=== PATIENT | male | born 1945 | race Caucasian/White ===

== ENCOUNTER 2017-11-02 11:17 | Emergency (ER) | payer MEDICARE ==
[2017-11-02 12:46] VITALS: BP 153/97
[2017-11-02] MEDS ORDERED: Albuterol 2.5 MG/3 ML NEB.SOL* (0.083%) INH ONE (13:02)
[2017-11-02] MEDS ORDERED: Albuterol/Ipratropium NEB.SOL* Albuterol 2.5 MG/Ipratropium 0.5 MG 3 ML INH ONE (13:02)
--- NOTE | 2017-11-02 13:24 | UC ---
Respiratory Complaint HPI - HPI Summary HPI Summary: Cough and congestion for a few weeks. He was treated with doxycycline and prednisone for 5 days and felt better but never perfect. He has one lung after prior pneumonectomy. he normally can walk up and down stairs with 2Lnc but now is more winded. He denies fever. Cough is mainly dry. No chest pain or cardiac ischemic equivalents. - History of Current Complaint Chief Complaint: UCRespiratory Stated Complaint: CHEST CONGESTION,SOB Time Seen by Provider: 11/02/17 13:00 Hx Obtained From: Patient Onset/Duration: Gradual Onset, Lasting Weeks Severity Initially: Moderate Severity Currently: Moderate Character: Cough: Nonproductive Aggravating Factors: Deep Breaths, Recumbent Position Alleviating Factors: Bronchodilator Associated Signs And Symptoms: Positive: Dyspnea, URI, Nasal Congestion. Negative: Fever, Chills, Pleuritic Chest Pain, Wheezing, Hemoptysis, Calf Pain, Calf Swelling, Edema - Allergies/Home Medications Allergies/Adverse Reactions: Allergies Allergy/AdvReac Type Severity Reaction Status Date / Time No Known Allergies Allergy Verified 11/02/17 12:46 Home Medications: Home Medications Albuterol 2.5MG/3ML (0.083%)* [Ventolin 2.5 MG/3 ML NEB.JOSEMANUEL*] 11/02/17 [History ] PMH/Surg Hx/FS Hx/Imm Hx Previously Healthy: Yes - Surgical History Surgical History: Yes Surgery Procedure, Year, and Place: Right Lung Removed, 2004. Tonsillectomy. cardiac stents - RCA, LAD, CIRC. aortic heart valve replacement - Family History Known Family History: Positive: Cardiac Disease, Hypertension, Diabetes - Social History Alcohol Use: None Substance Use Type: None Smoking Status (MU): Former Smoker Type: Cigarettes Amount Used/How Often: 1 PPD Length of Time of Smoking/Using Tobacco: 30 Years When Did the Patient Quit Smoking/Using Tobacco: 2004 - Immunization History Most Recent Influenza Vaccination: 2013/2014 vaccine, but can't remember date Review of Systems ENT: Sinus Congestion Respiratory: Shortness Of Breath, Cough All Other Systems Reviewed And Are Negative: Yes Physical Exam Triage Information Reviewed: Yes Appearance: Well-Appearing, No Pain Distress, Well-Nourished Vital Signs: Initial Vital Signs Temp 98.7 F 11/02/17 12:41 Pulse 118 11/02/17 12:41 Resp 20 11/02/17 12:41 BP 153/97 11/02/17 12:41 Pulse Ox 96 11/02/17 12:41 Vital Signs Reviewed: Yes Eyes: Positive: Conjunctiva Clear ENT: Positive: Nasal congestion, TMs normal, Trismus, Uvula midline. Negative: Pharyngeal erythema, TM bulging, TM dull, TM red, Tonsillar swelling, Tonsillar exudate Neck: Positive: Supple, Nontender, No Lymphadenopathy. Negative: Nuchal Rigidity Respiratory: Positive: Normal breath sounds, No respiratory distress, No accessory muscle use, Rhonchi, Wheezing - he is talking in full sentences and appears generally comfortable. he remains on 2liters and has needed to increase this.. Negative: Respiratory distress, Decreased breath sounds, Accessory muscle use, Crackles, Stridor Cardiovascular: Positive: No Murmur, Pulses Normal, Brisk Capillary Refill Abdomen Description: Positive: Nontender, No Organomegaly, Soft. Negative: Distended, Guarding Musculoskeletal Exam: Other - Neg homans clare. Musculoskeletal: Positive: Strength Intact, ROM Intact, No Edema Neurological: Positive: Alert, Muscle Tone Normal. Negative: Fatigued Psychological: Positive: Normal Response To Family, Age Appropriate Behavior Skin: Negative: rashes UC Diagnostic Evaluation - Laboratory O2 Sat by Pulse Oximetry: 96 - Radiology Xray Interpretation: No Acute Changes Radiology Interpretation Completed By: Radiologist Respiratory Course/Dx - Differential Dx/Diagnosis Provider Diagnoses: Copd exacerbation. Discharge - Discharge Plan Condition: Good Disposition: HOME Prescriptions: Azithromyxin OLIVER (NF) [Z-Oliver (Zithromax) 250 mg tabs #6] 2 tab PO .TODAY, THEN 1 DAILY #6 tab predniSONE TAB* [Deltasone TAB*] 20 mg PO DAILY #15 tab Patient Education Materials: COPD (Chronic Obstructive Pulmonary Disease) (ED) Referrals: Ilir Nye MD [Primary Care Provider] - 2 Days Additional Instructions: Return to ED for any worsening.
--- NOTE | 2017-11-02 13:38 | RAD ---
HISTORY: Cough, shortness of breath, history of pneumonectomy COMPARISONS: May 19, 2016 VIEWS: 4: Frontal dual-energy and lateral views of the chest. FINDINGS: CARDIOMEDIASTINAL SILHOUETTE: The cardiomediastinal silhouette is normal. A vascular stent is noted overlying the aortic caliber. REINALDO: The reinaldo are normal. PLEURA: The costophrenic angles are sharp. No pleural abnormalities are noted. LUNG PARENCHYMA: There is opacification of the right hemithorax consistent with history of pneumonectomy. There is hyperinflation of the left lung.. ABDOMEN: The upper abdomen is clear. There is no subphrenic gas. BONES AND SOFT TISSUES: The patient is status post median sternotomy. OTHER: None. IMPRESSION: STATUS POST RIGHT PNEUMONECTOMY. NO ACTIVE CARDIOPULMONARY DISEASE.
== END 2017-11-02 14:10 | disposition home or self-care (01) ==
LOC: UCCORT 11:17
DX: J44.1 Chronic obstructive pulmonary disease with (acute) exacerbation (principal); Z95.2 Presence of prosthetic heart valve; Z95.5 Presence of coronary angioplasty implant and graft; Z87.891 Personal history of nicotine dependence
CPT/HCPCS: 71046; 99212; A9270-GY; G0463

== ENCOUNTER 2019-10-17 09:59 | Emergency (ER) | payer MEDICARE ==
[2019-10-17] MEDS ORDERED: Ipratropium 0.5MG/2.5ML NEB* 0.5 MG/2.5 ML NEB.SOLN INH ONE ×2 (10:05→11:32)
[2019-10-17] MEDS ORDERED: Albuterol 2.5 MG/3 ML NEB.SOL* (0.083%) INH ONE ×2 (10:05→11:32)
--- NOTE | 2019-10-17 10:27 | UC ---
Respiratory Complaint HPI - HPI Summary HPI Summary: 73 yo male with one wk hx of progressively worsening dyspnea and cough hx copd on home O2 right pneumonectomy for ca CAD valvular heart disease no fever or chills - History of Current Complaint Chief Complaint: UCRespiratory Stated Complaint: TROUBLE BREATHING Time Seen by Provider: 10/17/19 10:05 Hx Obtained From: Patient Onset/Duration: Gradual Onset, Lasting Days - 7 Timing: Constant Severity Initially: Mild Severity Currently: Severe Pain Intensity: 0 Pain Scale Used: 0-10 Numeric Character: Cough: Productive Aggravating Factors: Exertion Associated Signs And Symptoms: Positive: Dyspnea - Allergies/Home Medications Allergies/Adverse Reactions: Allergies Allergy/AdvReac Type Severity Reaction Status Date / Time No Known Allergies Allergy Verified 11/02/17 12:46 Home Medications: Home Medications Albuterol HFA INHALER* [Ventolin HFA Inhaler*] 2 puff INH Q6H PRN 10/17/19 [ History Confirmed 10/17/19] Cetirizine HCl 10 mg PO DAILY 10/17/19 [History Confirmed 10/17/19] Cholecalciferol TAB* [Vitamin D TAB*] 1,000 unit PO DAILY 10/17/19 [History Confirmed 10/17/19] Cyanocobalamin (Vitamin B-12) [Vitamin B-12] 1,000 mcg SL DAILY 10/17/19 [ History Confirmed 10/17/19] Levothyroxine Sodium 112 mcg PO DAILY 10/17/19 [History Confirmed 10/17/19] PMH/Surg Hx/FS Hx/Imm Hx Previously Healthy: Yes Cardiovascular History: Cardiac Disease Respiratory History: COPD Cancer History: Lung Cancer - Surgical History Surgical History: Yes Surgery Procedure, Year, and Place: Right Lung Removed, 2004. Tonsillectomy. cardiac stents - RCA, LAD, CIRC. aortic heart valve replacement - Family History Known Family History: Positive: Cardiac Disease, Hypertension, Diabetes - Social History Alcohol Use: None Substance Use Type: None Smoking Status (MU): Former Smoker Type: Cigarettes Amount Used/How Often: 1 PPD Length of Time of Smoking/Using Tobacco: 30 Years When Did the Patient Quit Smoking/Using Tobacco: 2003 - Immunization History Most Recent Influenza Vaccination: vaccine, but can't remember date Review of Systems All Other Systems Reviewed And Are Negative: Yes Constitutional: Positive: Fatigue Skin: Positive: Negative Eyes: Positive: Negative ENT: Positive: Negative Respiratory: Positive: Shortness Of Breath, Cough Cardiovascular: Positive: Negative Gastrointestinal: Positive: Negative Genitourinary: Positive: Negative Motor: Positive: Negative Neurovascular: Positive: Negative Musculoskeletal: Positive: Negative Neurological: Positive: Negative Psychological: Positive: Negative Physical Exam - Summary Physical Exam Summary: increased WOB and hypoxic on 2 L nc Triage Information Reviewed: Yes Appearance: Ill-Appearing Vital Signs: Initial Vital Signs Temp 97.6 F 10/17/19 10:01 Pulse 122 10/17/19 10:01 Resp 34 10/17/19 10:01 BP 174/87 10/17/19 10:01 Pulse Ox 88 10/17/19 10:01 Vital Signs Reviewed: Yes Eyes: Positive: Conjunctiva Clear ENT: Positive: Hearing grossly normal, Uvula midline. Negative: Nasal congestion, Nasal drainage, Trismus, Muffled voice, Hoarse voice Dental: Negative: Abscess @ Neck: Positive: Supple Respiratory: Positive: Accessory muscle use, Wheezing - Lefrt, Other: - deminished BS on right Cardiovascular: Positive: RRR, Tachycardia Musculoskeletal: Positive: Edema @ Neurological: Positive: Alert Psychological Exam: Normal Skin Exam: Normal Diagnostics - Radiology No standard instances Radiology Interpretation Completed By: Radiologist Summary of Radiographic Findings: 1. No focal airspace opacification. 2. Unchanged small left pleural effusion versus pleural scarring 3. Status post right pneumonectomy with a large right pleural effusion. 4. Status post midline sternotomy, CABG and aVR. Re-Evaluation - Re-Evaluation First Eval Re-Evaluation Time: 11:02 Change: Improved - after first neb feels markely improved, Pox 98% on 2 L nc, P 104 Second Eval Re-Evaluation Time: 11:33 - cough worsening ..will give another neb Third Eval Re-Evaluation Time: 12:11 Change: Improved - left lung clear/feels better Respiratory Course/Dx - Differential Dx/Diagnosis Provider Diagnosis: Acute exacerbation of chronic obstructive pulmonary disease (COPD) Discharge ED - Sign-Out/Discharge Documenting (check all that apply): Patient Departure All imaging exams completed and their final reports reviewed: Yes - Discharge Plan Condition: Stable Disposition: HOME Prescriptions: DOXYcycline CAP(*) [DOXYcycline 100MG CAP(*)] 100 mg PO BID #14 cap Ipratropium 0.5MG/2.5ML NEB* [Atrovent 0.5 MG NEB.JOSEMANUEL*] 0.5 mg INH Q4H PRN #1 meb.soln MDD 4 PRN Reason: Sob/Wheezing predniSONE TAB* [Deltasone 20 MG TAB*] 20 - 40 mg PO DAILY #13 tab Patient Education Materials: Acute Bronchitis (ED) Referrals: Ilir Nye MD [Primary Care Provider] - As Soon As Possible Additional Instructions: You need to go to the ER as soon as possible for worsening symptoms If you worsen despite the medications we prescribe it is likely you will need admission - Billing Disposition and Condition Condition: STABLE Disposition: Home
[2019-10-17 12:24] VITALS: BP 133/77
== END 2019-10-17 12:31 | disposition home or self-care (01) ==
LOC: UCCORT 09:59
DX: J44.1 Chronic obstructive pulmonary disease with (acute) exacerbation (principal); I25.10 Atherosclerotic heart disease of native coronary artery without angina pectoris; Z99.81 Dependence on supplemental oxygen; Z85.118 Personal history of other malignant neoplasm of bronchus and lung; Z79.899 Other long term (current) drug therapy; Z87.891 Personal history of nicotine dependence
CPT/HCPCS: 71046; 99213; G0463; J7512

== ENCOUNTER 2019-12-26 10:10 | Inpatient (IN) | payer MEDICARE ==
[2019-12-26] MEDS ORDERED: Furosemide IV* 10 MG/ML VIAL (40 MG) IV SLOW PU ONE (10:24)
[2019-12-26 10:27] LABS: Hematocrit 36 % (42-52); Hemoglobin 11.9 g/dL (14.0-18.0); Mean Corpuscular HGB Conc 33 g/dL (31-36); Mean Corpuscular Hemoglobin 30 pg (27-31); Mean Corpuscular Volume 90 fL (80-94); Mean Platelet Volume 8.8 fL (7.4-10.4); Platelet Count 273 10^3/uL (150-450); Red Blood Count 3.99 10^6 /uL (4.18-5.48); Red Cell Distribution Width 16 % (10-15); White Blood Count 29.3 10^3/uL (3.5-10.8)
[2019-12-26 10:39] LABS: INR 1.11 (0.82-1.09)
[2019-12-26] MEDS ORDERED: Albuterol/Ipratropium NEB.SOL* Albuterol 2.5 MG/Ipratropium 0.5 MG 3 ML ONE (10:44)
[2019-12-26 10:52] LABS: Troponin I 0.03 ng/mL (<0.03)
[2019-12-26 10:56] LABS: Anion Gap 5 mmol/L (2-11); CO2 Carbon Dioxide 37 mmol/L (22-32); Calcium 9.1 mg/dL (8.6-10.3); Chloride 91 mmol/L (101-111); Potassium 4.3 mmol/L (3.5-5.0); Sodium 133 mmol/L (135-145)
[2019-12-26] MEDS ORDERED: Albuterol/Ipratropium NEB.SOL* Albuterol 2.5 MG/Ipratropium 0.5 MG 3 ML INH SCH (11:00)
[2019-12-26 11:02] LABS: ALT 14 U/L (7-52); AST 20 U/L (13-39); Albumin/Globulin Ratio 1.3 (1-3); Alkaline Phosphatase 127 U/L (34-104); BUN/Creatinine Ratio 10.2 (8-20); Blood Urea Nitrogen 9 mg/dL (6-24); EGFR African American 102.7 (>60); EGFR Non-African American 84.9 (>60); Globulin 3.1 g/dL (2-4); Glucose 150 mg/dL (70-100); Total Protein 7.1 g/dL (6.4-8.9)
[2019-12-26 11:04] LABS: Influenza A Molecular Negative (Negative); Influenza B Molecular Negative (Negative)
[2019-12-26 11:06] LABS: ABS Basophils 0.3 10^3/ul (0-0.2); ABS Lymphocytes 0.2 10^3/ul (1.0-4.8); ABS Monocytes 1.3 10^3/ul (0-0.8); ABS Neutrophils 27.5 10^3/ul (1.5-7.7); Lymphocyte % 0.8 %
--- NOTE | 2019-12-26 11:33 | HP ---
H&P (Free Text) History and Physical: DATE OF ADMISSION: 12/26/19 REASON FOR ADMISSION: Acute on chronic hypercapneic and hypoxic respiratory failure CC: Shortness of breath HPI: Esdras Navarrete is a 74 year-old man with a history of lung cancer s/p right pneumonectomy, s/p valve replacement, COPD, CAD, and recent hospitalization with cardiac arrest who is a direct admit from [facility] in [place] for worsening shortness of breath. He reports worsening shortness of breath over the past 1 week. He denies cough, fever or other URI symptoms. He requires 2L O2 at baseline but has been using 4-5L during the past couple of days. EMS was called for dyspnea yesterday, and his oxygen concentrator was found not to be working. The patient initially refused to go to the ED after the oxygen tank was fixed but did end up going due to the shortness of breath. In the [place] ED, he was started on BIPAP and given Zosyn, methylprednisolone 125 mg, Duoneb , and lasix 20 mg. BNP was >1100 and WBC was about 16. He was transferred to [facility] due to patient request. On arrival to the ICU, he has no other complaints besides the shortness of breath which he feels is slightly better. FiO2 is at 100%. About 6 weeks ago, the patient presented to [facility] in [place] with worsening dyspnea similar to this current episode. He was in [place] for about 2 days before being transferred to [facility] in [place] per patient/family request. He developed sudden respiratory failure and cardiac arrest with ROSC that was suspected to be a result of an aspiration event. He was at [facility] for about 2 weeks and was discharged home about 3 weeks ago. He reports he has been doing well since discharge. He noticed leg swelling during his hospitalization which is still unchanged. He denies chest pain, abdominal pain, or nausea. He has had constipation since discharge which is improving. He lost about 40 lbs a couple of months ago due to a medication "to clear out the airways." His weight has been stable since he stopped the medication prior to his previous hospitalization. He follows a pureed diet. PMH: COPD, h/o cardiac arrest, CAD, h/o lung cancer, hypothyroidism PSH: Right pneumonectomy 2004, cardiac stent placement (RCA, LAD, Circ), CABG, bovine aortic valve replacement, cataract removal HOME MEDICATIONS: Formoterol fumarate 2 puff BID inh Atorvastatin 40 mg qday po Spiriva 18 mcg q day inh Cetirizine 10 mg q day po Albuterol 2 mg QID prn neb Metoprolol succinate 25 mg q day po Levothyroxine 112 mcg q day po Vitamin B12 1000 mcg q day po Cholecalciferol 1 tab q day po Allergies lactose Allergy (Verified 12/26/19 10:14) Unknown Reaction Details FH: Father from throat cancer. Mother from [place]. No history of bleeding disorders. SH: Patient lives with his . He quit smoking in 2004. He denies alcohol or drug use. ROS: 10-point review of systems was obtained. Pertinent positive and negatives are listed in the HPI. PHYSICAL EXAM: Temp Pulse Resp BP Pulse Ox 99.4 F 114 28 91/64 100 12/26/19 10:18 12/26/19 11:00 12/26/19 11:00 12/26/19 11:00 12/26/19 11:00 General: No acute distress but increased work of breathing. Cachectic-appearing man who appears stated age. Head: Normocephalic and atraumatic. Eyes: Pupils equal and no scleral icterus. Neck: Supple, trachea midline. CV: Tachycardic, regular rhythm. Well healed sternal incision. Resp: Clear breath sounds on left, mild expiratory wheezes. Absent breath sounds on right. Accessory muscle use with bipap. Abdomen: Soft, nontender, nondistended. Extremities: 3+ pedal edema distal BLE. Warm. Skin: Warm and dry. Intact. Neuro: Awake. Alert and oriented x3. Moves all extremities equally. Psych: Affect normal. Laboratory Results - last 24 hr 12/26/19 12/26/19 12/26/19 10:20 10:20 10:20 WBC 29.3 H RBC 3.99 L Hgb 11.9 L Hct 36 L MCV 90 MCH 30 MCHC 33 RDW 16 H Plt Count 273 MPV 8.8 Neut % (Auto) 93.9 Lymph % (Auto) 0.8 Andrews % (Auto) 4.4 Eos % (Auto) 0.0 Baso % (Auto) 0.9 Absolute Neuts (auto) 27.5 H Absolute Lymphs (auto) 0.2 L Absolute Monos (auto) 1.3 H Absolute Eos (auto) 0.0 Absolute Basos (auto) 0.3 H Absolute Nucleated RBC 0.0 Nucleated RBC % 0.0 INR (Anticoag Therapy) 1.11 H Patient Temperature ABG pH ABG pH (Temp Correct) ABG pCO2 ABG pCO2 (Temp Corrct ABG pO2 ABG pO2 (Temp Correct ABG HCO3 ABG O2 Saturation ABG Base Excess Respiration Rate O2 Delivery Device Ventilator Type Vent Mode FiO2 Inspiratory Time PEEP Pressure Support Pressure Control EPAP IPAP BiPAP Sodium 133 L Potassium 4.3 Chloride 91 L Carbon Dioxide 37 H Anion Gap 5 BUN 9 Creatinine 0.88 Est GFR ( Amer) 102.7 Est GFR (Non-Af Amer) 84.9 BUN/Creatinine Ratio 10.2 Glucose 150 H Lactic Acid Calcium 9.1 Total Bilirubin 2.30 H AST 20 ALT 14 Alkaline Phosphatase 127 H Troponin I 0.03 H* Total Protein 7.1 Albumin 4.0 Globulin 3.1 Albumin/Globulin Ratio 1.3 Influenza A (Rapid) Influenza B (Rapid) 12/26/19 12/26/19 12/26/19 10:20 10:37 10:38 WBC RBC Hgb Hct MCV MCH MCHC RDW Plt Count MPV Neut % (Auto) Lymph % (Auto) Andrews % (Auto) Eos % (Auto) Baso % (Auto) Absolute Neuts (auto) Absolute Lymphs (auto) Absolute Monos (auto) Absolute Eos (auto) Absolute Basos (auto) Absolute Nucleated RBC Nucleated RBC % INR (Anticoag Therapy) Patient Temperature Not Reportable ABG pH 7.32 L ABG pH (Temp Correct) Not Reportable ABG pCO2 69 H ABG pCO2 (Temp Corrct Not Reportable ABG pO2 156 H ABG pO2 (Temp Correct Not Reportable ABG HCO3 30.4 ABG O2 Saturation 99.9 H ABG Base Excess 7.0 H Respiration Rate Not Reportable O2 Delivery Device bipap Ventilator Type Not Reportable Vent Mode Not Reportable FiO2 100 Inspiratory Time Not Reportable PEEP Not Reportable Pressure Support Not Reportable Pressure Control Not Reportable EPAP 8 IPAP 16 BiPAP Not Reportable Sodium Potassium Chloride Carbon Dioxide Anion Gap BUN Creatinine Est GFR ( Amer) Est GFR (Non-Af Amer) BUN/Creatinine Ratio Glucose Lactic Acid 1.7 Calcium Total Bilirubin AST ALT Alkaline Phosphatase Troponin I Total Protein Albumin Globulin Albumin/Globulin Ratio Influenza A (Rapid) Negative Influenza B (Rapid) Negative CXR- Small pleural effusion on L, mild opacification of LLL (consolidation vs atelectasis) IMPRESSION: 74M with acute on chronic respiratory failure due to COPD exacerbation vs pneumonia. Acute on chronic hypercarbic respiratory failure. Acute on chronic hypoxic respiratory failure. Leukocytosis CAD Hypothyroidism PLAN: Neuro: Tylenol prn for pain. Delirium precautions. CV: Goal MAP >65 TTE ordered Lasix 60 mg (evidence of hypervolemia on physical exam) Continue home metoprolol and statin. Resp: Continue Bipap, wean as tolerated. Titrate FiO2 to keep O2 sat >88% Continue home formoterol, Spiriva. Duoneb prn. GI: NPO while on Bipap. Plan for regular/pureed diet if able to wean off bipap. GI ppx not indicated Bowel regimen: Miralax, senna. Suppository prn Renal: Strict I&Os. If unable to measure accurate urine output, will place Jones. ID: Leukocytosis likely due in part to steroids but WBC was 16 at [place]. Will treat empirically for community-acquired pneumonia with azithromycin and ceftriaxone. Influenza negative. Strep pneumo and Legionella pending. Heme: Daily CBC DVT ppx: SQH. Endo: Check fingersticks q6h while he is on steroids. Will order insulin sliding scale if BG >180 Continue home levothyroxine MSK: Activity with assistance. Wound: None Status: Critical Dispo: ICU for respiratory failure Code status: Full code Critical care time: 60 min
[2019-12-26] MEDS: cefTRIAXone(*) 1 GM in NS 0.9% 50 ML* 50 ML IVPB SCH (11:49)
[2019-12-26 11:56] LABS: Urine Appearance Clear; Urine Bilirubin Negative (Negative); Urine Blood Negative (Negative); Urine Color Yellow; Urine Glucose Negative (Negative); Urine Ketones Negative (Negative); Urine Nitrite Negative (Negative); Urine Protein Negative (Negative); Urine Specific Gravity 1.009 (1.010-1.030); Urine Urobilinogen Negative (Negative)
[2019-12-26] MEDS ORDERED: Azithromycin 500 mg/250 ml NS 500 MG/250 ML BAG IVPB SCH (12:00)
[2019-12-26] MEDS: Azithromycin 500 mg/250 ml NS 500 MG/250 ML BAG IVPB SCH (12:38)
[2019-12-26] MEDS ORDERED: SPIRIVA Respimat* (tiotropium) 2.5 mcg/inh Inhaler INH SCH (13:00)
--- NOTE | 2019-12-26 13:03 | ECHO ---
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 History: Cardiac arrest, Lung cancer, right lobectomy. Risk factors: Former tobacco use. Hypertension. Dyslipidemia. Labs, prior tests, procedures, and surgery: Catheterization. There was a stenosis which was treated with a stent. Coronary artery bypass grafting. Aortic valve replacement with a bioprosthetic valve. Conclusions Summary: - Procedure narrative: The study was technically limited due to poor acoustic window availability, heart shifted to the right. - Left ventricle: The cavity size is moderately reduced. Wall thickness is normal. Systolic function is vigorous. The estimated ejection fraction is 70-75%. - Right ventricle: Systolic function is low normal. - Tricuspid valve: There is trace to mild regurgitation. - Pulmonary arteries: Systolic pressure is within the normal range. The peak pressure during systole by Doppler is 30.0 mm Hg. - No prior echocardiogram available to compare. Study data: Transthoracic echocardiogram. Procedure: Transthoracic echocardiography was performed. Image quality was suboptimal. The study was technically limited due to poor acoustic window availability, heart shifted to the right. All views acquired from patient's right side. Patient on Bipap. Complete 2D, spectral Doppler, and color flow Doppler. Location: ICU Patient status: Inpatient. Patient room number: 4. Rhythm: Tachycardia. Findings Left ventricle: The cavity size is moderately reduced. Wall thickness is normal. Systolic function is vigorous. The estimated ejection fraction is 70-75%. Wall motion is normal; there are no regional wall motion abnormalities. Left ventricular diastolic function parameters are indeterminate. Right ventricle: The cavity size is normal. Systolic function is low normal. Left atrium: The atrium is normal in size. Right atrium: Not well visualized. Mitral valve: Not well visualized. The Mitral valve annulus appears thickened. There is no significant regurgitation. Aortic valve: Not well visualized. There is a bioprosthetic valve. There is no significant regurgitation. Tricuspid valve: The leaflets are normal thickness. There is no evidence of stenosis. There is trace to mild regurgitation. Pulmonic valve: Not well visualized. There is no significant regurgitation. Aorta: Aortic root: The aortic root is poorly visualized. Aortic arch: The aortic arch is not well visualized and does not appear dilated. Pericardium: There is no significant pericardial effusion. Pulmonary arteries: Systolic pressure is within the normal range. Systemic veins: Inferior vena cava: The vessel is normal in size. There is (< 50%) respiratory change in the IVC dimension. Measurements Left ventricle Value Ref Mitral valve Value Ref ANJALI, LAX (L) 2.7 cm 4.2 - 5.8 Peak E 0.73 m/sec ----- ESD, LAX (L) 1.8 cm 2.5 - 4.0 Peak A 0.55 m/sec ----- FS, LAX 34 % 25 - 43 Decel time 65 ms ----- PW, ED, LAX 0.9 cm 0.6 - 1.0 Mean grad, D 2.0 mm Hg ----- Peak grad, D 4.0 mm Hg ----- LVOT Value Ref Peak E/A ratio 1.3 ----- Diam, S 2.10 cm Area 3.5 cm^2 Pulmonic valve Value Ref Peak v, S 0.92 m/sec ----- Ventricular septum Value Ref Peak grad, S 3.0 mm Hg ----- IVS, ED 0.9 cm 0.6 - 1.0 Tricuspid valve Value Ref Right ventricle Value Ref TR peak v 2.61 m/sec <=2.8 ANJALI, LAX 2.7 cm Peak RV-RA grad, S 27 mm Hg ----- Pressure, S 33 mm Hg Aortic arch Value Ref Left atrium Value Ref Arch diam 3.1 cm ----- AP dim, ES 3.40 cm 3.00 - 4.00 Decending aorta Value Ref Right atrium Value Ref Tg peak katlyn 0.46 m/sec ----- Estimated RAP 8 mm Hg Pulmonary artery Value Ref Aortic valve Value Ref Pressure, S 30.0 mm Hg ----- Petra diam, ED 2.0 cm Peak v, S 1.31 m/sec Inferior vena cava Value Ref VTI, S 15.3 cm Diam 1.7 cm ----- Mean grad, S 3.0 mm Hg Peak grad, S 7.0 mm Hg Legend: (L) and (H) haider values outside specified reference range. Prepared and electronically signed by Sania Cristobal MD 12/26/2019 13:02
[2019-12-26] MEDS: methylPREDNISolone 125 MG* 2 ML VIAL IV SCH ×2 (13:19→19:28)
[2019-12-26] MEDS: Heparin VIAL(*) 5000 UNITS/ML VIAL (FIVE THOUSAND) SUBCUT SCH ×2 (13:19→21:00)
[2019-12-26] MEDS: Albuterol/Ipratropium NEB.SOL* Albuterol 2.5 MG/Ipratropium 0.5 MG 3 ML INH SCH ×2 (13:40→19:49)
[2019-12-26 13:57] LABS: Magnesium 1.6 mg/dL (1.9-2.7); Phosphorus 4.5 mg/dL (2.5-5.0)
[2019-12-26] MEDS ORDERED: Magnesium Sulfate 2 GM IV* 2 GM/50 ML BAG IVPB ONE (16:30)
[2019-12-26] MEDS ORDERED: D5LR 1000 ML BAG* 1,000 ML IV SCH (17:00)
[2019-12-26] MEDS: Senna TAB 8.6 mg* TAB PO SCH (19:37)
--- NOTE | 2019-12-26 23:14 | PN ---
Hospitalist Progress Note Date of Service: 12/26/19 HOSPITALIST ADDENDUM Called by RN because patient was noted to have mild ST elevations on telemetry. EKG shows mild ST elevation on lateral leads. Will continue to trend troponins. He's asymptomatic at this time, sleeping comfortably on Vapotherm. Continue to monitor in ICU.
[2019-12-26 23:49] LABS: Troponin I 0.02 ng/mL (<0.03)
[2019-12-27] MEDS: Albuterol/Ipratropium NEB.SOL* Albuterol 2.5 MG/Ipratropium 0.5 MG 3 ML INH SCH ×4 (02:10→19:11)
[2019-12-27] MEDS: methylPREDNISolone 125 MG* 2 ML VIAL IV SCH ×3 (04:10→21:15)
[2019-12-27] MEDS ORDERED: Albuterol/Ipratropium NEB.SOL* Albuterol 2.5 MG/Ipratropium 0.5 MG 3 ML INH PRN (04:24)
[2019-12-27] MEDS ORDERED: Furosemide IV* 10 MG/ML VIAL (40 MG) IV SLOW PU ONE (04:24)
--- NOTE | 2019-12-27 04:32 | PN ---
Hospitalist Progress Note Date of Service: 12/27/19 HOSPITALIST ADDENDUM Called by RN because patient is in respiratory distress. Immediately evaluated at bedside with severe dyspnea and increased work of breathing. CVS: normal S1 and S2, RRR, tachycardic Chest: BS+ bilaterally with diffuse rhonchi and crackles. A/P: Flash pulmonary edema - Portable CxR - D/c IVF - Furosemide 40mg IV - Bronchodilators - Continue Vapotherm.
[2019-12-27 05:03] LABS: Hematocrit 32 % (42-52); Hemoglobin 10.5 g/dL (14.0-18.0); Mean Corpuscular HGB Conc 33 g/dL (31-36); Mean Corpuscular Hemoglobin 29 pg (27-31); Mean Corpuscular Volume 90 fL (80-94); Mean Platelet Volume 8.9 fL (7.4-10.4); Platelet Count 234 10^3/uL (150-450); Red Blood Count 3.59 10^6 /uL (4.18-5.48); Red Cell Distribution Width 16 % (10-15); White Blood Count 28.8 10^3/uL (3.5-10.8)
[2019-12-27 05:05] LABS: ABS Lymphocytes 0.3 10^3/ul (1.0-4.8); ABS Monocytes 0.8 10^3/ul (0-0.8); ABS Neutrophils 27.7 10^3/ul (1.5-7.7); Lymphocyte % 1.1 %
[2019-12-27 05:15] LABS: Albumin 3.6 g/dL (3.2-5.2); Anion Gap 8 mmol/L (2-11); CO2 Carbon Dioxide 33 mmol/L (22-32); Calcium 8.9 mg/dL (8.6-10.3); Chloride 93 mmol/L (101-111); Indirect Bilirubin 1.1 mg/dL (0.3-1.0); Potassium 4.3 mmol/L (3.5-5.0); Sodium 134 mmol/L (135-145)
[2019-12-27 05:21] LABS: ALT 13 U/L (7-52); AST 19 U/L (13-39); Albumin/Globulin Ratio 1.3 (1-3); Alkaline Phosphatase 105 U/L (34-104); BUN/Creatinine Ratio 19.5 (8-20); Blood Urea Nitrogen 16 mg/dL (6-24); EGFR African American 111.4 (>60); EGFR Non-African American 92.1 (>60); Globulin 2.8 g/dL (2-4); Glucose 137 mg/dL (70-100); Total Protein 6.4 g/dL (6.4-8.9)
[2019-12-27 05:36] LABS: Troponin I 0.04 ng/mL (<0.03)
[2019-12-27] MEDS: Heparin VIAL(*) 5000 UNITS/ML VIAL (FIVE THOUSAND) SUBCUT SCH ×3 (05:56→21:15)
[2019-12-27] MEDS ORDERED: Azithromycin 500 mg/250 ml NS 500 MG/250 ML BAG IVPB SCH (07:00)
[2019-12-27] MEDS ORDERED: [UNRECOGNIZED DRUG - OTHER] INH SCH (09:00)
[2019-12-27] MEDS ORDERED: Metoprolol Succinate XL TAB* 50 MG PO SCH (09:00)
--- NOTE | 2019-12-27 09:02 | PN ---
Date of Service: 12/27/19 Critical Care Services: Found to have ST elevation on telemetry and EKG showed borderline elevation. Troponin peaked at 0.04. He also had an episode of severe dyspnea, likely etiology flash pulmonary edema. He received Lasix 40 and IVF turned off. This morning he feels his breathing has improved but is not back to baseline yet. He is on vapother FiO2 74%, 20 LPM. He denies chest pain or abdominal pain. He denies nausea, and he feels hungry. Afebrile. HR has been 90s-110s and SBP 90s- 100s. Vital Signs: Temp Pulse Resp BP SpO2 FiO2 98.1 F 115 23 100/56 99 75 12/27/19 07:20 12/27/19 08:00 12/27/19 08:00 12/27/19 08:00 12/27/19 08:00 12/27 08:00 Physical Exam: Gen: NAD. HEENT: Normocephalic, atraumatic. Pupils equal and no scleral icterus. Moist mucous membranes. Trachea midline, neck supple. Lungs: Coarse breath sounds on left, no accessory muscle use but cannot complete full sentences without pausing. Absent breath sounds on right. Cardiac: Tachycardic, regular rhythm. Abdomen: soft, nontender, nondistended. Extremities: Warm. Edematous mostly in feet, R > L Neuro: Alert and oriented x3. Moves all extremities equally. Fluid Balance (Past 24 Hours): I= O= Net Intake & Output 12/25/19 12/26/19 12/27/19 12/28/19 06:59 06:59 06:59 06:59 Intake Total 901 Output Total 1375 225 Balance -474 -225 Weight 141 lb 1.533 oz Intake: IV Fluids 846 D5LR 523 NS (0.9%) 323 IVPB 55 mg sulfate 55 Oral 0 Output: Urine 1375 225 Labs: Laboratory Results - last 24 hr 12/26/19 12/26/19 12/26/19 10:20 10:20 10:20 WBC 29.3 H RBC 3.99 L Hgb 11.9 L Hct 36 L MCV 90 MCH 30 MCHC 33 RDW 16 H Plt Count 273 MPV 8.8 Neut % (Auto) 93.9 Lymph % (Auto) 0.8 [place] % (Auto) 4.4 Eos % (Auto) 0.0 Baso % (Auto) 0.9 Absolute Neuts (auto) 27.5 H Absolute Lymphs (auto) 0.2 L Absolute Monos (auto) 1.3 H Absolute Eos (auto) 0.0 Absolute Basos (auto) 0.3 H Absolute Nucleated RBC 0.0 Nucleated RBC % 0.0 INR (Anticoag Therapy) 1.11 H Patient Temperature ABG pH ABG pH (Temp Correct) ABG pCO2 ABG pCO2 (Temp Corrct ABG pO2 ABG pO2 (Temp Correct ABG HCO3 ABG O2 Saturation ABG Base Excess Respiration Rate O2 Delivery Device Ventilator Type Vent Mode FiO2 Inspiratory Time PEEP Pressure Support Pressure Control EPAP IPAP BiPAP Sodium 133 L Potassium 4.3 Chloride 91 L Carbon Dioxide 37 H Anion Gap 5 BUN 9 Creatinine 0.88 Est GFR ( Amer) 102.7 Est GFR (Non-Af Amer) 84.9 BUN/Creatinine Ratio 10.2 Glucose 150 H Lactic Acid Calcium 9.1 Phosphorus 4.5 Magnesium 1.6 L Total Bilirubin 2.30 H Direct Bilirubin Indirect Bilirubin AST 20 ALT 14 Alkaline Phosphatase 127 H Troponin I 0.03 H* B-Natriuretic Peptide Total Protein 7.1 Albumin 4.0 Globulin 3.1 Albumin/Globulin Ratio 1.3 Urine Color Urine Appearance Urine pH Ur Specific [place] Urine Protein Urine Ketones Urine Blood Urine Nitrate Urine Bilirubin Urine Urobilinogen Ur Leukocyte Esterase Urine Glucose Influenza A (Rapid) Influenza B (Rapid) 12/26/19 12/26/19 12/26/19 10:20 10:37 10:38 WBC RBC Hgb Hct MCV MCH MCHC RDW Plt Count MPV Neut % (Auto) Lymph % (Auto) [place] % (Auto) Eos % (Auto) Baso % (Auto) Absolute Neuts (auto) Absolute Lymphs (auto) Absolute Monos (auto) Absolute Eos (auto) Absolute Basos (auto) Absolute Nucleated RBC Nucleated RBC % INR (Anticoag Therapy) Patient Temperature Not Reportable ABG pH 7.32 L ABG pH (Temp Correct) Not Reportable ABG pCO2 69 H ABG pCO2 (Temp Corrct Not Reportable ABG pO2 156 H ABG pO2 (Temp Correct Not Reportable ABG HCO3 30.4 ABG O2 Saturation 99.9 H ABG Base Excess 7.0 H Respiration Rate Not Reportable O2 Delivery Device bipap Ventilator Type Not Reportable Vent Mode Not Reportable FiO2 100 Inspiratory Time Not Reportable PEEP Not Reportable Pressure Support Not Reportable Pressure Control Not Reportable EPAP 8 IPAP 16 BiPAP Not Reportable Sodium Potassium Chloride Carbon Dioxide Anion Gap BUN Creatinine Est GFR ( Amer) Est GFR (Non-Af Amer) BUN/Creatinine Ratio Glucose Lactic Acid 1.7 Calcium Phosphorus Magnesium Total Bilirubin Direct Bilirubin Indirect Bilirubin AST ALT Alkaline Phosphatase Troponin I B-Natriuretic Peptide Total Protein Albumin Globulin Albumin/Globulin Ratio Urine Color Urine Appearance Urine pH Ur Specific [place] Urine Protein Urine Ketones Urine Blood Urine Nitrate Urine Bilirubin Urine Urobilinogen Ur Leukocyte Esterase Urine Glucose Influenza A (Rapid) Negative Influenza B (Rapid) Negative 12/26/19 12/26/19 12/27/19 10:55 23:20 04:37 WBC RBC Hgb Hct MCV MCH MCHC RDW Plt Count MPV Neut % (Auto) Lymph % (Auto) [place] % (Auto) Eos % (Auto) Baso % (Auto) Absolute Neuts (auto) Absolute Lymphs (auto) Absolute Monos (auto) Absolute Eos (auto) Absolute Basos (auto) Absolute Nucleated RBC Nucleated RBC % INR (Anticoag Therapy) Patient Temperature ABG pH ABG pH (Temp Correct) ABG pCO2 ABG pCO2 (Temp Corrct ABG pO2 ABG pO2 (Temp Correct ABG HCO3 ABG O2 Saturation ABG Base Excess Respiration Rate O2 Delivery Device Ventilator Type Vent Mode FiO2 Inspiratory Time PEEP Pressure Support Pressure Control EPAP IPAP BiPAP Sodium 134 L Potassium 4.3 Chloride 93 L Carbon Dioxide 33 H Anion Gap 8 BUN 16 Creatinine 0.82 Est GFR ( Amer) 111.4 Est GFR (Non-Af Amer) 92.1 BUN/Creatinine Ratio 19.5 Glucose 137 H Lactic Acid Calcium 8.9 Phosphorus Magnesium 2.0 2.0 Total Bilirubin 1.30 H Direct Bilirubin 0.20 H Indirect Bilirubin 1.1 H AST 19 ALT 13 Alkaline Phosphatase 105 H Troponin I 0.02 0.04 H* B-Natriuretic Peptide Total Protein 6.4 Albumin 3.6 Globulin 2.8 Albumin/Globulin Ratio 1.3 Urine Color Yellow Urine Appearance Clear Urine pH 6.0 Ur Specific [place] 1.009 L Urine Protein Negative Urine Ketones Negative Urine Blood Negative Urine Nitrate Negative Urine Bilirubin Negative Urine Urobilinogen Negative Ur Leukocyte Esterase Negative Urine Glucose Negative Influenza A (Rapid) Influenza B (Rapid) 12/27/19 12/27/19 04:37 04:37 WBC 28.8 H RBC 3.59 L Hgb 10.5 L Hct 32 L MCV 90 MCH 29 MCHC 33 RDW 16 H Plt Count 234 MPV 8.9 Neut % (Auto) 96.0 Lymph % (Auto) 1.1 [place] % (Auto) 2.7 Eos % (Auto) 0.0 Baso % (Auto) 0.2 Absolute Neuts (auto) 27.7 H Absolute Lymphs (auto) 0.3 L Absolute Monos (auto) 0.8 Absolute Eos (auto) 0.0 Absolute Basos (auto) 0.0 Absolute Nucleated RBC 0.0 Nucleated RBC % 0.0 INR (Anticoag Therapy) Patient Temperature ABG pH ABG pH (Temp Correct) ABG pCO2 ABG pCO2 (Temp Corrct ABG pO2 ABG pO2 (Temp Correct ABG HCO3 ABG O2 Saturation ABG Base Excess Respiration Rate O2 Delivery Device Ventilator Type Vent Mode FiO2 Inspiratory Time PEEP Pressure Support Pressure Control EPAP IPAP BiPAP Sodium Potassium Chloride Carbon Dioxide Anion Gap BUN Creatinine Est GFR ( Amer) Est GFR (Non-Af Amer) BUN/Creatinine Ratio Glucose Lactic Acid Calcium Phosphorus Magnesium Total Bilirubin Direct Bilirubin Indirect Bilirubin AST ALT Alkaline Phosphatase Troponin I B-Natriuretic Peptide 273 H Total Protein Albumin Globulin Albumin/Globulin Ratio Urine Color Urine Appearance Urine pH Ur Specific [place] Urine Protein Urine Ketones Urine Blood Urine Nitrate Urine Bilirubin Urine Urobilinogen Ur Leukocyte Esterase Urine Glucose Influenza A (Rapid) Influenza B (Rapid) Studies: Echo 12/26: LVEF 70-75% CXR- Worsening opacification of LLL, small L pleural effusion. Nutrition: NPO. Swallow to re-evaluate and likely start pureed with honey thick liquids. Impression: 74M with acute on chronic respiratory failure due to COPD exacerbation vs pneumonia. Acute on chronic hypercarbic respiratory failure. Acute on chronic hypoxic respiratory failure. Leukocytosis CAD Hypothyroidism Dysphagia Plan: Neuro: Tylenol prn for pain. Delirium precautions. CV: Goal MAP >65 Continue home metoprolol and statin. Resp: Continue Vapotherm, wean as tolerated. Anticipate that he will continue on Vapotherm today. Titrate FiO2 to keep O2 sat >88% Continue home Dulera, Spiriva. Duoneb prn. GI: Start diet once cleared by speech therapy. GI ppx not indicated Bowel regimen: Miralax, senna. Suppository prn Renal: Strict I&Os. Appears mostly euvolemic. Will hold off on redosing Lasix since BP on low end of normal. ID: Leukocytosis stable, may be result of steroids. Afebrile. Will treat empirically for community-acquired pneumonia with azithromycin and ceftriaxone, day 2. Influenza negative. Strep pneumo and Legionella neg. Heme: Daily CBC DVT ppx: SQH. Endo: Check fingersticks q6h while he is on steroids. Will order insulin sliding scale if BG >180 Continue home levothyroxine MSK: Activity with assistance. Wound: None Status: Critical Dispo: ICU for respiratory failure Code status: Full code Critical care time: 40 min
[2019-12-27] MEDS ORDERED: Metoprolol Tartrate TAB* 25 MG PO SCH (10:00)
[2019-12-27] MEDS: SPIRIVA Respimat* (tiotropium) 2.5 mcg/inh Inhaler INH SCH (10:40)
[2019-12-27] MEDS ORDERED: Mometasone/Formoter 200/5 MDI INH SCH (11:00)
[2019-12-27] MEDS: cefTRIAXone(*) 1 GM in NS 0.9% 50 ML* 50 ML IVPB SCH (11:25)
[2019-12-27] MEDS: Metoprolol Tartrate IV* 1 MG/ML 5 ML VIAL IV PRN (11:26)
[2019-12-27] MEDS: Levothyroxine TAB* 112 MCG TAB PO SCH (11:27)
[2019-12-27] MEDS: Polyethylene Glycol 3350* 17 GM PACKET PO SCH (11:27)
[2019-12-27] MEDS: Cetirizine* 10 MG TAB PO SCH (11:27)
[2019-12-27] MEDS: Azithromycin 500 mg/250 ml NS 500 MG/250 ML BAG IVPB SCH (13:00)
[2019-12-27] MEDS: Atorvastatin* 40 MG TAB PO SCH (18:24)
[2019-12-27] MEDS: Mometasone/Formoter 200/5 MDI INH SCH (19:10)
[2019-12-27] MEDS: Senna TAB 8.6 mg* TAB PO SCH (21:15)
[2019-12-27] MEDS: Metoprolol Tartrate TAB* 25 MG PO SCH (21:16)
[2019-12-28] MEDS: Albuterol/Ipratropium NEB.SOL* Albuterol 2.5 MG/Ipratropium 0.5 MG 3 ML INH SCH ×4 (02:04→19:33)
[2019-12-28] MEDS: methylPREDNISolone 125 MG* 2 ML VIAL IV SCH ×3 (04:07→20:06)
[2019-12-28 04:22] LABS: Hematocrit 27 % (42-52); Hemoglobin 9.2 g/dL (14.0-18.0); Mean Corpuscular HGB Conc 34 g/dL (31-36); Mean Corpuscular Hemoglobin 30 pg (27-31); Mean Corpuscular Volume 89 fL (80-94); Mean Platelet Volume 9.2 fL (7.4-10.4); Platelet Count 184 10^3/uL (150-450); Red Blood Count 3.05 10^6 /uL (4.18-5.48); Red Cell Distribution Width 16 % (10-15); White Blood Count 21.5 10^3/uL (3.5-10.8)
[2019-12-28 04:24] LABS: ABS Lymphocytes 0.2 10^3/ul (1.0-4.8); ABS Monocytes 0.8 10^3/ul (0-0.8); ABS Neutrophils 20.5 10^3/ul (1.5-7.7); Lymphocyte % 0.9 %
[2019-12-28 04:36] LABS: BUN/Creatinine Ratio 32.1 (8-20); Calcium 8.7 mg/dL (8.6-10.3); EGFR Non-African American 93.4 (>60); Potassium 3.8 mmol/L (3.5-5.0)
[2019-12-28] MEDS: Heparin VIAL(*) 5000 UNITS/ML VIAL (FIVE THOUSAND) SUBCUT SCH ×3 (05:42→21:19)
[2019-12-28] MEDS: Levothyroxine TAB* 112 MCG TAB PO SCH (05:42)
[2019-12-28] MEDS: Mometasone/Formoter 200/5 MDI INH SCH ×2 (08:28→19:33)
[2019-12-28] MEDS: SPIRIVA Respimat* (tiotropium) 2.5 mcg/inh Inhaler INH SCH (08:28)
[2019-12-28] MEDS ORDERED: guaiFENesin ER TAB 600 MG SCH (09:00)
[2019-12-28] MEDS ORDERED: guaiFENesin 100 mg/5 ml LIQ unit dose cup PO PRN (09:19)
--- NOTE | 2019-12-28 09:35 | PN ---
Date of Service: 12/28/19 Critical Care Services: 60 y.o male s/p LAD stent and he is doing well. He denies any chest pain or shortness of breath. He reports some abdominal bloating. Vital Signs: Temp Pulse Resp BP SpO2 FiO2 98.6 F 123 20 117/78 95 50 12/28/19 07:58 12/28/19 09:09 12/28/19 09:09 12/28/19 07:00 12/28/19 09:09 12/28 09:09 Physical Exam: Gen: Awake alert and oriented HEENT: nc/at perrla Lungs: cta b no wheezes and no rhonchi Cardiac: s1s2 rrr no murmurs Abdomen: soft nt/nd bs+ and no guarding and no rebound tenderness Extremities: no edema. Neuro: He moves all extremities He is alert awake and oriented. Fluid Balance (Past 24 Hours): I= O= Net Intake & Output 12/26/19 12/27/19 12/28/19 12/29/19 06:59 06:59 06:59 06:59 Intake Total 901 862 Output Total 1375 325 Balance -474 537 Weight 141 lb 1.533 oz 132 lb 0.91 oz Intake: IV Fluids 846 332 ABX - AZITHROMYCIN 55 ABX - CEFEPIME 265 D5LR 523 NS (0.9%) 323 12 IVPB 55 mg sulfate 55 Oral 0 530 Output: Urine 1375 325 Other: Estimated Void Large Estimated Stool Amount Large Labs: Laboratory Results - last 24 hr 12/26/19 12/26/19 12/28/19 18:37 23:21 04:13 WBC RBC Hgb Hct MCV MCH MCHC RDW Plt Count MPV Neut % (Auto) Lymph % (Auto) [place] % (Auto) Eos % (Auto) Baso % (Auto) Absolute Neuts (auto) Absolute Lymphs (auto) Absolute Monos (auto) Absolute Eos (auto) Absolute Basos (auto) Absolute Nucleated RBC Nucleated RBC % Sodium 137 Potassium 3.8 Chloride 95 L Carbon Dioxide 37 H Anion Gap 5 BUN 26 H Creatinine 0.81 Est GFR ( Amer) 113.0 Est GFR (Non-Af Amer) 93.4 BUN/Creatinine Ratio 32.1 H Glucose 140 H POC Glucose (mg/dL) 179 H 178 H Calcium 8.7 Magnesium 2.0 12/28/19 04:13 WBC 21.5 H RBC 3.05 L Hgb 9.2 L Hct 27 L MCV 89 MCH 30 MCHC 34 RDW 16 H Plt Count 184 MPV 9.2 Neut % (Auto) 95.5 Lymph % (Auto) 0.9 [place] % (Auto) 3.6 Eos % (Auto) 0.0 Baso % (Auto) 0.0 Absolute Neuts (auto) 20.5 H Absolute Lymphs (auto) 0.2 L Absolute Monos (auto) 0.8 Absolute Eos (auto) 0.0 Absolute Basos (auto) 0.0 Absolute Nucleated RBC 0.0 Nucleated RBC % 0.0 Sodium Potassium Chloride Carbon Dioxide Anion Gap BUN Creatinine Est GFR ( Amer) Est GFR (Non-Af Amer) BUN/Creatinine Ratio Glucose POC Glucose (mg/dL) Calcium Magnesium Impression: Assessment: 1. acute coronoray syndrome s/p LAD stent 2. ACUTE hf C Depressed EF 40-45% 3. HTN 4. COPD not on home oxygen 5. Hypothyroidism 6. CAD hx 7. Gastritis hx 8. EMMIE with noncompliance 9. Fever on 12/26/2019 10 t2DM Plan: Plan -troponins are down trending now off the heparin gtt -dapt and statin will need injectable cholesterol trt outpatient; aaron inhibitor -Fever resolved stop abx. CT chest A/P unremarkable UA negative -check LFts -dc rocephin -check TSH -aggressive bowel regimen -nebulizers -Monitor on telemetery for fevers and bowel movements -HbAic is 7.1; he can go home on metformin -Encourage ambulation Critical Care Time:
[2019-12-28] MEDS: Metoprolol Tartrate TAB* 25 MG PO SCH ×2 (09:43→20:06)
[2019-12-28] MEDS: Cetirizine* 10 MG TAB PO SCH (09:43)
[2019-12-28] MEDS: Aspirin 81 mg CHEW TAB* 81 MG TAB.CHEW PO SCH (09:43)
[2019-12-28] MEDS: Polyethylene Glycol 3350* 17 GM PACKET PO SCH (09:45)
[2019-12-28] MEDS ORDERED: NS 0.9% 500 ML* 500 ML IV ONE (10:31)
[2019-12-28 11:31] LABS: TSH (Thyroid Stimulating Horm) 0.36 mcIU/mL (0.34-5.60)
--- NOTE | 2019-12-28 12:11 | PN ---
Date of Service: 12/28/19 Critical Care Services: ON vapotherm 50% and 30L/minute; Reports that he is doing OK. Vital Signs: Temp Pulse Resp BP SpO2 FiO2 98.6 F 112 30 106/61 98 50 12/28/19 07:58 12/28/19 11:00 12/28/19 11:00 12/28/19 11:00 12/28/19 11:00 12/28 09:09 Physical Exam: Gen: awake and alert in no distress HEENT: nc/at perrla Lungs: no air entry on the Right; hx of pneumonectomy; air entry on the Left Cardiac: s1s2 sinus tacycardia Abdomen: soft nt/nd bs+ Extremities: no edema. Neuro: alert awake and oriented and he is moving all extremities. Fluid Balance (Past 24 Hours): I= O= Net Intake & Output 12/26/19 12/27/19 12/28/19 12/29/19 06:59 06:59 06:59 06:59 Intake Total 901 862 240 Output Total 1375 325 Balance -474 537 240 Weight 141 lb 1.533 oz 132 lb 0.91 oz Intake: IV Fluids 846 332 ABX - AZITHROMYCIN 55 ABX - CEFEPIME 265 D5LR 523 NS (0.9%) 323 12 IVPB 55 mg sulfate 55 Oral 0 530 240 Output: Urine 1375 325 Other: Estimated Void Large Estimated Stool Amount Large Labs: Laboratory Results - last 24 hr 12/28/19 12/28/19 04:13 04:13 WBC 21.5 H RBC 3.05 L Hgb 9.2 L Hct 27 L MCV 89 MCH 30 MCHC 34 RDW 16 H Plt Count 184 MPV 9.2 Neut % (Auto) 95.5 Lymph % (Auto) 0.9 [place] % (Auto) 3.6 Eos % (Auto) 0.0 Baso % (Auto) 0.0 Absolute Neuts (auto) 20.5 H Absolute Lymphs (auto) 0.2 L Absolute Monos (auto) 0.8 Absolute Eos (auto) 0.0 Absolute Basos (auto) 0.0 Absolute Nucleated RBC 0.0 Nucleated RBC % 0.0 Sodium 137 Potassium 3.8 Chloride 95 L Carbon Dioxide 37 H Anion Gap 5 BUN 26 H Creatinine 0.81 Est GFR ( Amer) 113.0 Est GFR (Non-Af Amer) 93.4 BUN/Creatinine Ratio 32.1 H Glucose 140 H Calcium 8.7 Magnesium 2.0 TSH 0.36 Impression: 74 y.o male transferred from [place] for acute on chronic hypercapnic hypoxic respiratory failure 1. Acute hypoxic respiratory failure on chronic hypoxia on vapotherm 2. hx of dysphagia which resulted in a cardiac arrest 3. Acute on chronic oxygen dependent copd with 1 lung 4. Pneumonia with atelectasis LLL Aspiration? 5. CAD 6. hx of right pneumonectomy from [facility] cancer 2004 Plan: -Decrease the flow and oxygen; keep sats in the 89-93% range; hx of copd -Continue abx and add anaerbic coverage; flagyl -follow up blood cutlure; sputum culture -Fluid challenge; he is tachycardic EF looked hyperdynamic on echo -We will check plain CT of the chest to further evaluate the lung parenchyma; CT shows LLL opacity; this may be aspiration -Check TSH -Continue nebulizers -on solumederol currently -Chemical dvt ppx. Critical Care Time: 32 minutes.
[2019-12-28] MEDS: metroNIDAZOLE IV 500 MG/100ML* 500 MG/100 ML BAG IVPB SCH ×2 (12:15→18:23)
[2019-12-28] MEDS: Azithromycin 500 mg/250 ml NS 500 MG/250 ML BAG IVPB SCH (12:26)
[2019-12-28] MEDS: cefTRIAXone(*) 1 GM in NS 0.9% 50 ML* 50 ML IVPB SCH (13:48)
[2019-12-28] MEDS: Atorvastatin* 40 MG TAB PO SCH (18:23)
[2019-12-28] MEDS: Senna TAB 8.6 mg* TAB PO SCH (20:06)
[2019-12-29] MEDS: Albuterol/Ipratropium NEB.SOL* Albuterol 2.5 MG/Ipratropium 0.5 MG 3 ML INH SCH ×4 (01:00→19:02)
[2019-12-29] MEDS: metroNIDAZOLE IV 500 MG/100ML* 500 MG/100 ML BAG IVPB SCH ×3 (02:16→17:46)
[2019-12-29] MEDS: methylPREDNISolone 125 MG* 2 ML VIAL IV SCH (04:09)
[2019-12-29 04:43] LABS: ABS Lymphocytes 0.2 10^3/ul (1.0-4.8); ABS Monocytes 0.6 10^3/ul (0-0.8); ABS Neutrophils 16.3 10^3/ul (1.5-7.7); Hematocrit 27 % (42-52); Hemoglobin 8.9 g/dL (14.0-18.0); Mean Corpuscular HGB Conc 33 g/dL (31-36); Mean Corpuscular Hemoglobin 30 pg (27-31); Mean Corpuscular Volume 90 fL (80-94); Mean Platelet Volume 9.2 fL (7.4-10.4); Nucleated Red Blood Cells % 0.2; Platelet Count 185 10^3/uL (150-450); Red Blood Count 2.99 10^6 /uL (4.18-5.48); Red Cell Distribution Width 16 % (10-15)
[2019-12-29 05:00] LABS: BUN/Creatinine Ratio 34.3 (8-20); Calcium 8.8 mg/dL (8.6-10.3); EGFR African American 133.8 (>60); EGFR Non-African American 110.5 (>60)
[2019-12-29] MEDS: Levothyroxine TAB* 112 MCG TAB PO SCH (05:01)
[2019-12-29] MEDS: Heparin VIAL(*) 5000 UNITS/ML VIAL (FIVE THOUSAND) SUBCUT SCH ×3 (05:01→21:20)
[2019-12-29] MEDS: SPIRIVA Respimat* (tiotropium) 2.5 mcg/inh Inhaler INH SCH (07:33)
[2019-12-29] MEDS: Mometasone/Formoter 200/5 MDI INH SCH ×2 (07:33→19:02)
[2019-12-29] MEDS: Cetirizine* 10 MG TAB PO SCH (10:10)
[2019-12-29] MEDS: Metoprolol Tartrate TAB* 25 MG PO SCH ×2 (10:10→20:08)
[2019-12-29] MEDS: methylPREDNISolone SOD 40 MG* 1 ML VIAL IVPB SCH ×2 (10:10→20:07)
[2019-12-29] MEDS: Aspirin 81 mg CHEW TAB* 81 MG TAB.CHEW PO SCH (10:11)
[2019-12-29] MEDS: Polyethylene Glycol 3350* 17 GM PACKET PO SCH (10:12)
[2019-12-29] MEDS: cefTRIAXone(*) 1 GM in NS 0.9% 50 ML* 50 ML IVPB SCH (12:15)
--- NOTE | 2019-12-29 12:45 | PN ---
Date of Service: 12/29/19 Critical Care Services: The patient is back on the vapotherm 70% fio2 and 30L. He reports that he is comfortable. Vital Signs: Temp Pulse Resp BP SpO2 FiO2 98.0 F 107 23 114/69 100 70 12/29/19 11:44 12/29/19 07:36 12/29/19 07:36 12/29/19 06:00 12/29/19 07:36 08:00 Physical Exam: Gen: awake alert and oriented HEENT: nc/at perrla Lungs: Left lung rhonchi; hx of right pneumonectomy Cardiac: s1s2 sinus tachycardai Abdomen: soft nt/nt bs+ Extremities: no edema. Neuro: Alert awake and oriented and moving all extremities. Fluid Balance (Past 24 Hours): I= O= Net Intake & Output 12/27/19 12/28/19 12/29/19 12/30/19 06:59 06:59 06:59 06:59 Intake Total 352 576 3140 Output Total 1375 325 450 Balance -229 865 6778 Weight 141 lb 1.533 oz 132 lb 0.91 oz 128 lb 4.944 oz Intake: IV Fluids 846 332 259 ABX - AZITHROMYCIN 55 ABX - CEFEPIME 265 D5LR 523 NS (0.9%) 323 12 259 IVPB 55 732 ABX - AZITHROMYCIN 295 ABX - CEFEPIME 175 Flagyl 55 262 Oral 0 530 680 Output: Urine 1375 325 325 [place] 125 Other: Estimated Void Large Estimated Stool Amount Large Labs: Laboratory Results - last 24 hr 12/27/19 12/29/19 12/29/19 12:13 04:20 04:20 WBC 17.0 H RBC 2.99 L Hgb 8.9 L Hct 27 L MCV 90 MCH 30 MCHC 33 RDW 16 H Plt Count 185 MPV 9.2 Neut % (Auto) 95.6 Lymph % (Auto) 1.0 [place] % (Auto) 3.3 Eos % (Auto) 0.0 Baso % (Auto) 0.1 Absolute Neuts (auto) 16.3 H Absolute Lymphs (auto) 0.2 L Absolute Monos (auto) 0.6 Absolute Eos (auto) 0.0 Absolute Basos (auto) 0.0 Absolute Nucleated RBC 0.0 Nucleated RBC % 0.2 Sodium 138 Potassium 4.0 Chloride 98 L Carbon Dioxide 36 H Anion Gap 4 BUN 24 Creatinine 0.70 Est GFR ( Amer) 133.8 Est GFR (Non-Af Amer) 110.5 BUN/Creatinine Ratio 34.3 H Glucose 143 H POC Glucose (mg/dL) 101 H Calcium 8.8 Magnesium 2.0 Impression: 74 y.o male transferred from [place] for acute on chronic hypercapnic hypoxic respiratory failure 1. Acute hypoxic respiratory failure on chronic hypoxia on vapotherm 2. hx of dysphagia which resulted in a cardiac arrest 3. Acute on chronic oxygen dependent copd with 1 lung 4. Pneumonia with atelectasis LLL Aspiration? 5. CAD 6. hx of right pneumonectomy from lung cancer 2004 Plan: Plan - Titrate down oxygen -patient reports that he had trouble breathing when he was not sleeping (I was initially wondering if these are sleep apnea related). -continue nebs and steroids. I have decreased solumederol fo 30mg IV q 12 hours -Continue Flutter valve -Patient has refused Mucinex -Continue Rocephin, azithromycin and flagyl for aspiration -CTA chest to r/o PE; OPacity does not fully explain the oxygen requirements -Increase metoprolol dose; take it at home. -Chemcal dvt ppx to continue. -Add on Free t4 and t3 Critical Care Time:
[2019-12-29] MEDS ORDERED: Iohexol 350* (CONTRAST) 500 ML MDV IV ONE (12:58)
[2019-12-29 13:38] LABS: Free T4 1.04 ng/dL (0.61-1.12)
[2019-12-29] MEDS: Azithromycin 500 mg/250 ml NS 500 MG/250 ML BAG IVPB SCH (14:45)
[2019-12-29] MEDS: Atorvastatin* 40 MG TAB PO SCH (17:47)
[2019-12-29] MEDS: Metoprolol Tartrate IV* 1 MG/ML 5 ML VIAL IV PRN (19:06)
[2019-12-29] MEDS: Senna TAB 8.6 mg* TAB PO SCH (20:08)
[2019-12-29] MEDS ORDERED: Furosemide IV* 10 MG/ML 2 ML VIAL (20 MG) IV ONE (22:19)
[2019-12-30] MEDS: metroNIDAZOLE IV 500 MG/100ML* 500 MG/100 ML BAG IVPB SCH ×2 (02:30→10:50)
[2019-12-30] MEDS: Albuterol/Ipratropium NEB.SOL* Albuterol 2.5 MG/Ipratropium 0.5 MG 3 ML INH SCH ×4 (02:42→19:06)
[2019-12-30] MEDS: Heparin VIAL(*) 5000 UNITS/ML VIAL (FIVE THOUSAND) SUBCUT SCH ×3 (05:37→23:10)
[2019-12-30] MEDS: Levothyroxine TAB* 112 MCG TAB PO SCH (05:38)
[2019-12-30 05:55] LABS: Hematocrit 31 % (42-52); Hemoglobin 10.1 g/dL (14.0-18.0); Mean Corpuscular HGB Conc 33 g/dL (31-36); Mean Corpuscular Hemoglobin 30 pg (27-31); Mean Corpuscular Volume 91 fL (80-94); Mean Platelet Volume 8.8 fL (7.4-10.4); Platelet Count 201 10^3/uL (150-450); Red Blood Count 3.39 10^6 /uL (4.18-5.48); Red Cell Distribution Width 16 % (10-15); White Blood Count 21.5 10^3/uL (3.5-10.8)
[2019-12-30 06:12] LABS: ABS Lymphocytes 0.2 10^3/ul (1.0-4.8); ABS Monocytes 1.7 10^3/ul (0-0.8); ABS Neutrophils 19.5 10^3/ul (1.5-7.7); Eosinophil % 0.1 %; Lymphocyte % 1.1 %
[2019-12-30 06:13] LABS: Albumin 3.5 g/dL (3.2-5.2); Albumin/Globulin Ratio 1.3 (1-3); BUN/Creatinine Ratio 36.4 (8-20); EGFR African American 119.8 (>60); Globulin 2.7 g/dL (2-4); Phosphorus 3.9 mg/dL (2.5-5.0); Potassium 4.2 mmol/L (3.5-5.0); Total Bilirubin 0.8 mg/dL (0.2-1.0); Total Protein 6.2 g/dL (6.4-8.9)
[2019-12-30] MEDS: Mometasone/Formoter 200/5 MDI INH SCH ×3 (06:57→19:06)
[2019-12-30] MEDS: SPIRIVA Respimat* (tiotropium) 2.5 mcg/inh Inhaler INH SCH ×2 (06:57→09:05)
[2019-12-30] MEDS: Aspirin 81 mg CHEW TAB* 81 MG TAB.CHEW PO SCH (09:04)
[2019-12-30] MEDS: methylPREDNISolone SOD 40 MG* 1 ML VIAL IVPB SCH ×2 (09:04→19:47)
[2019-12-30] MEDS: Cetirizine* 10 MG TAB PO SCH (09:04)
[2019-12-30] MEDS: Metoprolol Tartrate TAB* 25 MG PO SCH ×2 (09:04→19:47)
[2019-12-30] MEDS: Polyethylene Glycol 3350* 17 GM PACKET PO SCH (09:06)
[2019-12-30] MEDS: cefTRIAXone(*) 1 GM in NS 0.9% 50 ML* 50 ML IVPB SCH (11:17)
--- NOTE | 2019-12-30 12:57 | PN ---
Date of Service: 12/30/19 Critical Care Services: No new events, still on HFNC Vital Signs: Temp Pulse Resp BP SpO2 FiO2 36.6 C 101 24 121/73 100 100 12/30/19 04:00 12/30/19 12:13 12/30/19 12:13 12/30/19 09:00 12/30/19 12:13 12/29 12:15 Physical Exam: Gen: OOB, still dyspneic, no complaints HEENT: NCAT, PERRL Lungs: left rales, right silent Cardiac: S1S2 regular Abdomen: soft, NT, ND, +BS Extremities: trace edema Neuro: A&O, grossly non-focal Fluid Balance (Past 24 Hours): I= O= Net Intake & Output 12/28/19 12/29/19 12/30/19 12/31/19 06:59 06:59 06:59 06:59 Intake Total 862 1671 1302 180 Output Total 915 564 0689 Balance 537 1221 -73 180 Weight 59.9 kg 58.2 kg Intake: IV Fluids 332 259 84 ABX - AZITHROMYCIN 55 ABX - CEFEPIME 265 NS (0.9%) 12 259 84 IVPB 732 578 ABX - AZITHROMYCIN 295 ABX - CEFEPIME 175 Flagyl 262 116 NS (0.9%) 462 Oral 530 680 640 180 Output: Urine 951 252 4774 [place] 125 Other: Estimated Void Large Estimated Stool Amount Large # Voids 2 Labs: Laboratory Results - last 24 hr 12/29/19 12/30/19 12/30/19 04:20 05:45 05:45 WBC 21.5 H RBC 3.39 L Hgb 10.1 L Hct 31 L MCV 91 MCH 30 MCHC 33 RDW 16 H Plt Count 201 MPV 8.8 Neut % (Auto) 90.7 Lymph % (Auto) 1.1 [place] % (Auto) 7.9 Eos % (Auto) 0.1 Baso % (Auto) 0.2 Absolute Neuts (auto) 19.5 H Absolute Lymphs (auto) 0.2 L Absolute Monos (auto) 1.7 H Absolute Eos (auto) 0.0 Absolute Basos (auto) 0.0 Absolute Nucleated RBC 0.0 Nucleated RBC % 0.0 Sodium 138 141 Potassium 4.0 4.2 Chloride 98 L 98 L Carbon Dioxide 36 H 39 H Anion Gap 4 4 BUN 24 28 H Creatinine 0.70 0.77 Est GFR ( Amer) 133.8 119.8 Est GFR (Non-Af Amer) 110.5 99.0 BUN/Creatinine Ratio 34.3 H 36.4 H Glucose 143 H 133 H Calcium 8.8 9.0 Phosphorus 3.9 Magnesium 2.0 2.0 Total Bilirubin 0.80 AST 25 ALT 40 Alkaline Phosphatase 86 Total Protein 6.2 L Albumin 3.5 Globulin 2.7 Albumin/Globulin Ratio 1.3 Free T4 1.04 Total T3 47 L Studies: CXR with scattered left infiltrates Nutrition: Eating Impression: Acute Hypoxic Respiratory Failure secondary to MDR Pseudomonal Pneumonia. Plan: Acute Hypoxic Respiratory Failure - secondary to MDR Pseudomonal Pneumonia on cultures coming back today. I DC'd Cef/Z/Flagyl and started high dose meropenem. High dose appropriate with this isolate already resistant to multiple antipseudomonals. This explains his clinical stasis as well as his rising WBC. Pt happy to hear we have been able to identify a discrete opportunity to change his management and hope for a better outcome. Remains on HFNC at 100% at 30 lpm. COPD - bronchodilators, Ramiro and steroids on board. CAD - ASA/Statin/BB Hypothyroidism - synthroid Subcut heparin and glycemic control. AM labs.
[2019-12-30] MEDS: Meropenem 1 GM PREMIX(*) 1 GM/50 ML BAG IV SCH ×2 (13:34→19:49)
[2019-12-30] MEDS: Atorvastatin* 40 MG TAB PO SCH (17:58)
[2019-12-30] MEDS: Senna TAB 8.6 mg* TAB PO SCH (19:49)
[2019-12-31] MEDS: Albuterol/Ipratropium NEB.SOL* Albuterol 2.5 MG/Ipratropium 0.5 MG 3 ML INH SCH ×4 (00:55→19:13)
[2019-12-31] MEDS: Levothyroxine TAB* 112 MCG TAB PO SCH (05:14)
[2019-12-31] MEDS: Heparin VIAL(*) 5000 UNITS/ML VIAL (FIVE THOUSAND) SUBCUT SCH ×3 (05:14→21:00)
[2019-12-31] MEDS: Meropenem 1 GM PREMIX(*) 1 GM/50 ML BAG IV SCH ×3 (05:14→21:00)
[2019-12-31 05:50] LABS: Albumin 3.3 g/dL (3.2-5.2); Albumin/Globulin Ratio 1.3 (1-3); BUN/Creatinine Ratio 43.3 (8-20); EGFR African American 140.7 (>60); EGFR Non-African American 116.3 (>60); Globulin 2.6 g/dL (2-4); Phosphorus 3.2 mg/dL (2.5-5.0); Potassium 4.5 mmol/L (3.5-5.0); Total Bilirubin 0.7 mg/dL (0.2-1.0); Total Protein 5.9 g/dL (6.4-8.9)
[2019-12-31] MEDS: Mometasone/Formoter 200/5 MDI INH SCH ×2 (07:42→19:13)
[2019-12-31] MEDS: SPIRIVA Respimat* (tiotropium) 2.5 mcg/inh Inhaler INH SCH (07:42)
[2019-12-31] MEDS: Azithromycin 500 mg/250 ml NS 500 MG/250 ML BAG IVPB SCH (07:44)
[2019-12-31] MEDS: Aspirin 81 mg CHEW TAB* 81 MG TAB.CHEW PO SCH (09:09)
[2019-12-31] MEDS: Cetirizine* 10 MG TAB PO SCH (09:09)
[2019-12-31] MEDS: Metoprolol Tartrate TAB* 25 MG PO SCH ×2 (09:09→20:58)
[2019-12-31] MEDS: Polyethylene Glycol 3350* 17 GM PACKET PO SCH (09:10)
[2019-12-31] MEDS: methylPREDNISolone SOD 40 MG* 1 ML VIAL IVPB SCH ×2 (09:10→20:58)
--- NOTE | 2019-12-31 11:39 | PN ---
Date of Service: 12/31/19 Critical Care Services: No new events Vital Signs: Temp Pulse Resp BP SpO2 FiO2 36.7 C 119 22 110/72 94 80 12/31/19 04:00 12/31/19 11:00 12/31/19 11:00 12/31/19 11:00 12/31/19 11:00 12/30 08:00 Physical Exam: Gen: OOB in chair without complaint HEENT: NCAT, PERRL Lungs: silent right, rales, rhonchi left Cardiac: S1S2 regular Abdomen: soft, NT, ND, +BS Extremities: no edema Neuro: A&O, grossly non-focal Fluid Balance (Past 24 Hours): I= O= Net Intake & Output 12/29/19 12/30/19 12/31/19 01/01/20 06:59 06:59 06:59 06:59 Intake Total 1671 1302 1053 Output Total 450 1375 300 Balance 1221 -73 753 Weight 58.2 kg 58.5 kg 58.06 kg Intake: IV Fluids 259 84 60 ABX - CEFEPIME 0 NS (0.9%) 259 84 60 IVPB 732 578 333 ABX - AZITHROMYCIN 295 ABX - CEFEPIME 175 Flagyl 262 116 NS (0.9%) 462 333 Oral 680 640 660 Output: Urine 325 1375 300 Jones 125 Other: Estimated Void Medium Medium Date of Last Bowel 12/30/2019 12/31/2019 Movement # Bowel Movements 1 Estimated Stool Amount Medium Small # Voids 2 1 1 Labs: Laboratory Results - last 24 hr 12/31/19 05:23 Sodium 142 Potassium 4.5 Chloride 98 L Carbon Dioxide 43 H* Anion Gap 1 L BUN 29 H Creatinine 0.67 Est GFR ( Amer) 140.7 Est GFR (Non-Af Amer) 116.3 BUN/Creatinine Ratio 43.3 H Glucose 137 H Calcium 9.0 Phosphorus 3.2 Magnesium 2.0 Total Bilirubin 0.70 AST 16 ALT 32 Alkaline Phosphatase 76 Total Protein 5.9 L Albumin 3.3 Globulin 2.6 Albumin/Globulin Ratio 1.3 Nutrition: Eating fairly well Impression: Acute Hypoxic Respirtaory Failure secondary to MDR pseudomonas pneumonia and COPD exacerbation Plan: Acute Hypoxic Respiratory Failure - secondary to MDR Pseudomonal Pneumonia on cultures coming back 12/29. High dose meropenem to continue. High dose appropriate with this isolate already resistant to multiple antipseudomonals. This explains his clinical stasis as well as his rising WBC. Pt was happy to hear we have been able to identify a discrete opportunity to change his management and hope for a better outcome. Remains on HFNC at 100% at 30 lpm which I do not anticipate we will be able to significantly wean until he has had 48 hrs or so of the carbapenem. COPD - bronchodilators, Ramiro and steroids on board and will continue CAD - ASA/Statin/BB Hypothyroidism - synthroid Subcut heparin and glycemic control. AM labs, compensatory metabolic alkalosis is noted.
[2019-12-31 11:50] LABS: ABS Lymphocytes 0.2 10^3/ul (1.0-4.8); Hematocrit 31 % (42-52); Hemoglobin 9.9 g/dL (14.0-18.0); Lymphocyte % 0.9 %; Mean Corpuscular HGB Conc 33 g/dL (31-36); Mean Corpuscular Hemoglobin 30 pg (27-31); Mean Corpuscular Volume 91 fL (80-94); Mean Platelet Volume 9.6 fL (7.4-10.4); Platelet Count 184 10^3/uL (150-450); Red Blood Count 3.36 10^6 /uL (4.18-5.48); Red Cell Distribution Width 16 % (10-15); White Blood Count 18.2 10^3/uL (3.5-10.8)
[2019-12-31] MEDS: Atorvastatin* 40 MG TAB PO SCH (18:23)
[2019-12-31] MEDS: Senna TAB 8.6 mg* TAB PO SCH (20:59)
[2020-01-01] MEDS: Albuterol/Ipratropium NEB.SOL* Albuterol 2.5 MG/Ipratropium 0.5 MG 3 ML INH SCH ×4 (01:33→19:22)
[2020-01-01] MEDS: Heparin VIAL(*) 5000 UNITS/ML VIAL (FIVE THOUSAND) SUBCUT SCH ×3 (04:03→21:42)
[2020-01-01] MEDS: Levothyroxine TAB* 112 MCG TAB PO SCH (04:04)
[2020-01-01] MEDS: Meropenem 1 GM PREMIX(*) 1 GM/50 ML BAG IV SCH ×3 (04:04→20:44)
[2020-01-01 04:33] LABS: Hematocrit 30 % (42-52); Hemoglobin 9.6 g/dL (14.0-18.0); Mean Corpuscular HGB Conc 32 g/dL (31-36); Mean Corpuscular Hemoglobin 29 pg (27-31); Mean Corpuscular Volume 91 fL (80-94); Mean Platelet Volume 9.7 fL (7.4-10.4); Platelet Count 205 10^3/uL (150-450); Red Blood Count 3.27 10^6 /uL (4.18-5.48); Red Cell Distribution Width 16 % (10-15); White Blood Count 18.8 10^3/uL (3.5-10.8)
[2020-01-01 04:50] LABS: Albumin 3.2 g/dL (3.2-5.2); Albumin/Globulin Ratio 1.2 (1-3); BUN/Creatinine Ratio 41.3 (8-20); EGFR African American 151.1 (>60); EGFR Non-African American 124.8 (>60); Globulin 2.6 g/dL (2-4); Phosphorus 2.8 mg/dL (2.5-5.0); Potassium 4.8 mmol/L (3.5-5.0); Total Bilirubin 0.8 mg/dL (0.2-1.0); Total Protein 5.8 g/dL (6.4-8.9)
[2020-01-01] MEDS: Mometasone/Formoter 200/5 MDI INH SCH ×2 (07:54→19:22)
[2020-01-01] MEDS: SPIRIVA Respimat* (tiotropium) 2.5 mcg/inh Inhaler INH SCH (07:54)
[2020-01-01] MEDS: Polyethylene Glycol 3350* 17 GM PACKET PO SCH (09:14)
[2020-01-01] MEDS: Cetirizine* 10 MG TAB PO SCH (09:14)
[2020-01-01] MEDS: Metoprolol Tartrate TAB* 25 MG PO SCH ×2 (09:14→21:42)
[2020-01-01] MEDS: Aspirin 81 mg CHEW TAB* 81 MG TAB.CHEW PO SCH (09:14)
[2020-01-01] MEDS: methylPREDNISolone SOD 40 MG* 1 ML VIAL IVPB SCH (09:14)
[2020-01-01] MEDS ORDERED: Furosemide IV* 10 MG/ML VIAL (40 MG) IV ONE (12:29)
--- NOTE | 2020-01-01 12:32 | PN ---
Date of Service: 01/01/20 Critical Care Services: Feels and looks better with FIO2 coming down Vital Signs: Temp Pulse Resp BP SpO2 FiO2 36.6 C 110 27 112/70 100 100 01/01/20 12:00 01/01/20 12:04 01/01/20 12:04 01/01/20 12:04 01/01/20 12:04 12/31 08:00 Physical Exam: Gen: OOB in chair without complaint HEENT: NCAT, PERRL Lungs: rales on left Cardiac: S1S2 regular Abdomen: soft, NT, ND, +BS Extremities: trace edema Neuro: A&O, grossly non-focal Fluid Balance (Past 24 Hours): I= O= Net Intake & Output 12/30/19 12/31/19 01/01/20 01/02/20 06:59 06:59 06:59 06:59 Intake Total 1302 1053 1970 110 Output Total 1375 300 400 Balance -73 753 1570 110 Weight 58.5 kg 58.06 kg 59.3 kg Intake: IV Fluids 84 60 200 ABX - CEFEPIME 0 NS (0.9%) 84 60 200 IVPB 578 333 Flagyl 116 NS (0.9%) 462 333 Oral 581 171 6301 110 Output: Urine 1375 300 400 Other: Estimated Void Medium Large Date of Last Bowel 12/30/2019 12/31/2019 Movement # Bowel Movements 1 Estimated Stool Amount Medium Medium Small # Voids 2 1 1 Labs: Laboratory Results - last 24 hr 01/01/20 01/01/20 01/01/20 04:12 04:12 04:12 WBC 18.8 H RBC 3.27 L Hgb 9.6 L Hct 30 L MCV 91 MCH 29 MCHC 32 RDW 16 H Plt Count 205 MPV 9.7 Sodium 142 Potassium 4.8 Chloride 98 L Carbon Dioxide 42 H* Anion Gap 2 BUN 26 H Creatinine 0.63 L Est GFR ( Amer) 151.1 Est GFR (Non-Af Amer) 124.8 BUN/Creatinine Ratio 41.3 H Glucose 116 H Calcium 9.0 Ionized Calcium 1.21 Phosphorus 2.8 Magnesium 2.0 Total Bilirubin 0.80 AST 19 ALT 32 Alkaline Phosphatase 70 Total Protein 5.8 L Albumin 3.2 Globulin 2.6 Albumin/Globulin Ratio 1.2 Studies: CXR with scattered infiltrates on left consistent with non-cardiogenic pulmonary edema Nutrition: Eating fairly well Impression: Acute Hypoxic Respiratory Failure secondary to MDR pseudomonas pneumonia and COPD exacerbation Plan: Acute Hypoxic Respiratory Failure - secondary to MDR Pseudomonal Pneumonia on cultures coming back 12/29. High dose meropenem to continue. High dose appropriate with this isolate already resistant to multiple antipseudomonals. WBC remains stable at 18 but remains afebrile and clinically he is improving. CXR static but in positive balance 2.2 liters last 48H. Will get back a little fluid but even without that he is on significantly decreased settings on his HFNC and anticipate moving him to [place] today. He also reports subjective improvement in his dyspnea as well. COPD - bronchodilators, Ramiro and steroids on board and will continue. Change solumedrol to prednisone. CAD - ASA/Statin/BB Hypothyroidism - synthroid Subcut heparin and glycemic control. AM labs, compensatory metabolic alkalosis is stable and electrolytes look good.
[2020-01-01] MEDS: Atorvastatin* 40 MG TAB PO SCH (18:12)
[2020-01-01] MEDS: Metoprolol Tartrate IV* 1 MG/ML 5 ML VIAL IV PRN (19:30)
[2020-01-01] MEDS: Senna TAB 8.6 mg* TAB PO SCH (21:42)
[2020-01-02] MEDS ORDERED: Furosemide IV* 10 MG/ML 2 ML VIAL (20 MG) IV SLOW PU ONE (00:10)
[2020-01-02] MEDS ORDERED: Furosemide IV* 10 MG/ML 2 ML VIAL (20 MG) ONE (00:17)
[2020-01-02] MEDS: Albuterol/Ipratropium NEB.SOL* Albuterol 2.5 MG/Ipratropium 0.5 MG 3 ML INH SCH ×4 (00:23→19:28)
[2020-01-02] MEDS: Meropenem 1 GM PREMIX(*) 1 GM/50 ML BAG IV SCH ×3 (04:43→20:50)
[2020-01-02 05:20] LABS: ALT 49 U/L (7-52); AST 29 U/L (13-39); Albumin 3.4 g/dL (3.2-5.2); Albumin/Globulin Ratio 1.4 (1-3); Alkaline Phosphatase 73 U/L (34-104); BUN/Creatinine Ratio 36.1 (8-20); Blood Urea Nitrogen 22 mg/dL (6-24); Calcium 9.4 mg/dL (8.6-10.3); Chloride 93 mmol/L (101-111); EGFR African American 156.8 (>60); EGFR Non-African American 129.6 (>60); Globulin 2.4 g/dL (2-4); Glucose 118 mg/dL (70-100); Magnesium 1.9 mg/dL (1.9-2.7); Phosphorus 2.1 mg/dL (2.5-5.0); Potassium 4.7 mmol/L (3.5-5.0); Sodium 140 mmol/L (135-145); Total Protein 5.8 g/dL (6.4-8.9)
[2020-01-02] MEDS: Heparin VIAL(*) 5000 UNITS/ML VIAL (FIVE THOUSAND) SUBCUT SCH ×3 (05:27→21:22)
[2020-01-02] MEDS: Levothyroxine TAB* 112 MCG TAB PO SCH (05:27)
[2020-01-02 05:42] LABS: CO2 Carbon Dioxide 46 mmol/L (22-32)
[2020-01-02] MEDS: SPIRIVA Respimat* (tiotropium) 2.5 mcg/inh Inhaler INH SCH (08:19)
[2020-01-02] MEDS: Mometasone/Formoter 200/5 MDI INH SCH ×2 (08:19→19:29)
[2020-01-02] MEDS: Polyethylene Glycol 3350* 17 GM PACKET PO SCH (08:38)
[2020-01-02] MEDS: Aspirin 81 mg CHEW TAB* 81 MG TAB.CHEW PO SCH (08:43)
[2020-01-02] MEDS: Metoprolol Tartrate TAB* 25 MG PO SCH ×2 (08:43→20:52)
[2020-01-02] MEDS: Cetirizine* 10 MG TAB PO SCH (08:43)
[2020-01-02] MEDS ORDERED: Sodium Phosphate INJ* 30 MMOLE in NS 0.9% 250 ML* 250 ML IVPB ONE (11:23)
--- NOTE | 2020-01-02 11:30 | PN ---
Date of Service: 01/02/20 Critical Care Services: Continues to improve Vital Signs: Temp Pulse Resp BP SpO2 FiO2 37.4 C 120 34 118/77 90 10 01/02/20 07:57 01/02/20 11:07 01/02/20 11:07 01/02/20 11:07 01/02/20 11:07 12/31 13:15 Physical Exam: Gen: ambulating in the ICU today! HEENT: NCAT, PERRL Lungs: rhonchi left Cardiac: S1S2 regular Abdomen: soft, NT, ND, +BS Extremities: no edema Neuro: A&O, grossly non-focal Fluid Balance (Past 24 Hours): I= O= Net Intake & Output 12/31/19 01/01/20 01/02/20 01/03/20 06:59 06:59 06:59 06:59 Intake Total 1053 1970 1105 Output Total 300 400 500 Balance 753 1570 605 Weight 58.06 kg 59.3 kg 57.7 kg Intake: IV Fluids 60 200 55 ABX - CEFEPIME 0 Meropenem 50 NS (0.9%) 60 200 5 IVPB 333 100 Meropenem 100 NS (0.9%) 333 Oral 660 1770 950 Output: Urine 300 400 500 Other: Estimated Void Medium Large Date of Last Bowel 12/30/2019 12/31/2019 Movement # Bowel Movements 1 Estimated Stool Amount Medium Medium Small # Voids 1 1 Labs: Laboratory Results - last 24 hr 01/02/20 01/02/20 04:52 04:53 Sodium 140 Potassium 4.7 Chloride 93 L Carbon Dioxide 46 H* Anion Gap Not Reportable BUN 22 Creatinine 0.61 L Est GFR ( Amer) 156.8 Est GFR (Non-Af Amer) 129.6 BUN/Creatinine Ratio 36.1 H Glucose 118 H Calcium 9.4 Ionized Calcium 1.26 Phosphorus 2.1 L Magnesium 1.9 Total Bilirubin 1.10 H AST 29 ALT 49 Alkaline Phosphatase 73 Total Protein 5.8 L Albumin 3.4 Globulin 2.4 Albumin/Globulin Ratio 1.4 Nutrition: Eating well Impression: Acute Hypoxic Respiratory Failure secondary to MDR pseudomonas pneumonia and COPD exacerbation now significantly improved Plan: Acute Hypoxic Respiratory Failure - secondary to MDR Pseudomonal Pneumonia on cultures coming back 12/29. High dose meropenem to continue. High dose appropriate with this isolate already resistant to multiple antipseudomonals. WBC had remained stable at 18 but has remained afebrile and clinically he is improving. Check CBC in AM. Received lasix yesterday but was still in positive balance despite that and he has made ongoing significant clinical improvement. Would aim I=O and continue same. Ambulating in ICU today on NC an enormous change. He would like ot [place] [facility] [place], will ask Dr. Melendez to see him. OK to floor. COPD - bronchodilators, Ramiro and steroids on board and will continue. CAD - ASA/Statin/BB Hypothyroidism - synthroid Subcut heparin and glycemic control. AM labs, compensatory metabolic alkalosis is stable and electrolytes look good.
[2020-01-02] MEDS: Atorvastatin* 40 MG TAB PO SCH (18:16)
[2020-01-02] MEDS: Senna TAB 8.6 mg* TAB PO SCH (20:52)
[2020-01-03] MEDS: Albuterol/Ipratropium NEB.SOL* Albuterol 2.5 MG/Ipratropium 0.5 MG 3 ML INH SCH ×5 (01:30→20:29)
[2020-01-03] MEDS ORDERED: Furosemide IV* 10 MG/ML 2 ML VIAL (20 MG) IV ONE (03:10)
[2020-01-03] MEDS ORDERED: Furosemide IV* 10 MG/ML 2 ML VIAL (20 MG) ONE (03:13)
[2020-01-03] MEDS: Levothyroxine TAB* 112 MCG TAB PO SCH (05:46)
[2020-01-03] MEDS: Heparin VIAL(*) 5000 UNITS/ML VIAL (FIVE THOUSAND) SUBCUT SCH ×3 (05:47→21:09)
[2020-01-03] MEDS: Meropenem 1 GM PREMIX(*) 1 GM/50 ML BAG IV SCH ×3 (05:47→21:12)
[2020-01-03 06:12] LABS: Hematocrit 32 % (42-52); Hemoglobin 10.3 g/dL (14.0-18.0); Mean Corpuscular HGB Conc 33 g/dL (31-36); Mean Corpuscular Hemoglobin 29 pg (27-31); Mean Corpuscular Volume 90 fL (80-94); Mean Platelet Volume 8.5 fL (7.4-10.4); Platelet Count 235 10^3/uL (150-450); Red Blood Count 3.51 10^6 /uL (4.18-5.48); Red Cell Distribution Width 16 % (10-15); White Blood Count 16.2 10^3/uL (3.5-10.8)
[2020-01-03 06:39] LABS: ALT 50 U/L (7-52); AST 28 U/L (13-39); Albumin 3.4 g/dL (3.2-5.2); Albumin/Globulin Ratio 1.4 (1-3); Alkaline Phosphatase 78 U/L (34-104); BUN/Creatinine Ratio 32.8 (8-20); Blood Urea Nitrogen 20 mg/dL (6-24); Calcium 9.2 mg/dL (8.6-10.3); Chloride 91 mmol/L (101-111); EGFR African American 156.8 (>60); EGFR Non-African American 129.6 (>60); Globulin 2.5 g/dL (2-4); Glucose 103 mg/dL (70-100); Magnesium 1.8 mg/dL (1.9-2.7); Phosphorus 2.6 mg/dL (2.5-5.0); Sodium 141 mmol/L (135-145); Total Protein 5.9 g/dL (6.4-8.9)
[2020-01-03 06:55] LABS: CO2 Carbon Dioxide 46 mmol/L (22-32)
[2020-01-03] MEDS: Mometasone/Formoter 200/5 MDI INH SCH ×2 (07:05→20:29)
[2020-01-03] MEDS: SPIRIVA Respimat* (tiotropium) 2.5 mcg/inh Inhaler INH SCH (07:06)
[2020-01-03] MEDS: Metoprolol Tartrate TAB* 25 MG PO SCH ×2 (07:59→21:06)
[2020-01-03] MEDS: Aspirin 81 mg CHEW TAB* 81 MG TAB.CHEW PO SCH (07:59)
[2020-01-03] MEDS: Cetirizine* 10 MG TAB PO SCH (07:59)
[2020-01-03] MEDS: Polyethylene Glycol 3350* 17 GM PACKET PO SCH (07:59)
--- NOTE | 2020-01-03 14:13 | PN ---
Subjective Date of Service: 01/03/20 Interval History: Patient has cough, feels loose, but difficult to produce sputum. Has some dyspnea at rest. Transferred out of ICU yesterday. Family History: Unchanged from Admission Social History: Unchanged from Admission Past Medical History: Unchanged from Admission Objective Active Medications: Current Meds: Albuterol/Ipratropium (Duoneb (Albuterol 2.5 Mg/Ipratropium 0.5 Mg)) 1 neb INH [id number] AWAKE [facility] Last Admin: 01/03/20 12:52 Dose: 1 neb Albuterol/Ipratropium (Duoneb (Albuterol 2.5 Mg/Ipratropium 0.5 Mg)) 1 neb INH Q2H PRN PRN Reason: SOB/WHEEZING Last Admin: 12/27/19 04:28 Dose: 1 neb Aspirin (Aspirin 81 Mg Chew Tab*) 81 mg PO DAILY [facility] Last Admin: 01/03/20 07:59 Dose: 81 mg Atorvastatin Calcium (Lipitor*) 40 mg PO QPM [facility] Last Admin: 01/02/20 18:16 Dose: 40 mg Bisacodyl (Dulcolax Supp*) 10 mg CA DAILY PRN PRN Reason: CONSTIPATION Cetirizine HCl (Zyrtec*) 10 mg PO DAILY [facility] Last Admin: 01/03/20 07:59 Dose: 10 mg Heparin Sodium (Porcine) (Heparin Vial(*)) 5,000 units SUBCUT Q8HR [facility] Last Admin: 01/03/20 13:44 Dose: 5,000 units Meropenem (Merrem 1 Gm Premix(*)) 1 gm in 50 mls @ 100 mls/hr IV Q8H [facility]; Protocol Last Admin: 01/03/20 13:45 Dose: 100 mls/hr Levothyroxine Sodium (Synthroid Tab*) 112 mcg PO 0600 [facility] Last Admin: 01/03/20 05:46 Dose: 112 mcg Metoprolol Tartrate (Lopressor Iv*) 5 mg IV Q6H PRN PRN Reason: TACHYCARDIA Last Admin: 01/01/20 19:30 Dose: 5 mg Metoprolol Tartrate (Lopressor Tab*) 25 mg PO BID [facility] Last Admin: 01/03/20 07:59 Dose: 25 mg Mometasone Furoate/Formoterol Fumar (Dulera 200/5 Mdi*) 2 puff INH BID [facility] Last Admin: 01/03/20 07:05 Dose: 2 puff Polyethylene Glycol/Electrolytes (Miralax (17 Gm Dose Oliver)) 17 gm PO DAILY [facility] Last Admin: 01/03/20 07:59 Dose: Not Given Prednisone (Deltasone 20 Mg Tab) 40 mg PO DAILY [facility] Last Admin: 01/03/20 07:59 Dose: 40 mg Senna (Senokot 8.6 Mg Tab*) 1 tab PO BEDTIME [facility] Last Admin: 01/02/20 20:52 Dose: Not Given Tiotropium [place] (Spiriva Respimat 2.5 Mcg) 2 puff INH DAILY [facility] Last Admin: 01/03/20 07:06 Dose: 2 puff Vital Signs - 8 hr 01/03/20 01/03/20 01/03/20 07:12 07:30 07:56 Temperature 36.4 C Pulse Rate 115 132 102 Respiratory 18 26 Rate Blood Pressure 134/83 (mmHg) O2 Sat by Pulse 94 94 Oximetry 01/03/20 01/03/20 11:30 12:53 Temperature 36.8 C Pulse Rate 118 105 Respiratory 20 17 Rate Blood Pressure 98/56 (mmHg) O2 Sat by Pulse 99 98 Oximetry Oxygen Devices in Use Now: Nasal Cannula Appearance: Alert, no distress Neck: No Thyroid Enlargement, Masses Respiratory: - - absent BS RT lung field, diminished LT, no rales/wheezes. Cardiovascular: NL Sounds; No Murmurs; No JVD, RRR Abdominal: NL Sounds; No Tenderness; No Distention, No Hepatosplenomegaly Lymphatic: No Cervical Adenopathy Neurological: Alert and Oriented x 3 Lines/Tubes/Other Access: Clean, Dry and Intact Peripheral IV Result Diagrams: 01/03/20 06:04 01/03/20 06:04 Additional Lab and Data: Laboratory Tests 01/03/20 01/03/20 06:04 06:04 Calcium 9.2 Ionized Calcium 1.15 L Total Bilirubin 1.70 H Microbiology and Other Data: Microbiology 12/28/19 12:08 Aerobic Blood Culture - Final Blood Venous No Growth Day 5 Anaerobic Blood Culture - Final No Growth Day 5 12/28/19 12:10 Aerobic Blood Culture - Final Blood Venous No Growth Day 5 Anaerobic Blood Culture - Final No Growth Day 5 12/28/19 11:50 Gram Stain - Final Sputum Expectorated Sputum Culture - Final Pseudomonas Aeruginosa Normal Margaux 12/26/19 10:30 Nasal Screen MRSA (PCR) - Final Nasal Mrsa Not Detected 12/26/19 10:55 Legionella Urinary Antigen - Final Urine Negative Legionella Antigen Streptococcus pneumoniae Ag Screen - Final Negative S. pneumo Antigen Assess/Plan/Problems-Billing Assessment: 74 yo man w/ RT lobectomy, COPD, here with acute on chronic hypoxic and hypercarbic respiratory failure due to pseudomonas, COPD exacerbation - Patient Problems (1) Acute and chronic respiratory failure with hypercapnia Current Visit: Yes Status: Acute Priority: High Code(s): J96.22 - ACUTE AND CHRONIC RESPIRATORY FAILURE WITH HYPERCAPNIA SNOMED Code(s): 3190802327431 Comment: -No infiltrate in LT lung field on previous imaging -Continue oxygen supplementation, nebulizers -Continue prednisone for COPD exacerbation -Improving, not ready for discharge (2) Pseudomonas aeruginosa infection Current Visit: Yes Status: Acute Priority: Medium Code(s): A49.8 - OTHER BACTERIAL INFECTIONS OF UNSPECIFIED SITE SNOMED Code(s): 82492296 Comment: -Sputum growing pseudomonas sensitive to meropenem and gent. -Will discuss with ID duration of meropenem (3) Hypomagnesemia Current Visit: Yes Status: Acute Priority: Medium Code(s): E83.42 - HYPOMAGNESEMIA SNOMED Code(s): 437462583 Comment: -Will supplement Mg PO. (4) DVT prophylaxis Current Visit: Yes Status: Acute Priority: Low Code(s): Z29.9 - ENCOUNTER FOR PROPHYLACTIC MEASURES, UNSPECIFIED SNOMED Code(s): 542284632 Comment: -SC heparin Status and Disposition: inpatient
[2020-01-03] MEDS: Atorvastatin* 40 MG TAB PO SCH (17:52)
--- NOTE | 2020-01-03 20:39 | CONS ---
CONSULTATION REPORT: DATE OF CONSULT: 01/03/20 PRIMARY CARE PROVIDER: Ilir Nye MD. PROVIDER REQUESTING CONSULTATION: Rohan Lucio MD. CONSULTING SERVICE: Infectious disease. PROVIDER: Azul Welch NP. ATTENDING PROVIDER: Karsten Daniel MD* (Azul Welch NP). REASON FOR CONSULT: Multidrug resistant pseudomonas pneumonia. IMPRESSION: 1. Pseudomonas pneumonia. The patient is on day 5 of meropenem, previously he had received 5 doses of ceftriaxone and 5 doses of azithromycin. Blood cultures with no growth. He is afebrile. Continues to have tachycardia, tachypnea, and increased oxygen needs. He was negative for influenza A and B on admission. Sputum culture with pseudomonas 2+ and normal kulwant 2+, this was resistant to all sensitivities checked except for gentamicin and meropenem. Urine antigen for legionella and Streptococcus pneumoniae are negative. In the setting of a patient with a history of a right pneumonectomy secondary to right lung cancer, chest x-ray from earlier today shows a right pneumonectomy, left lower lobe consolidation and infiltrate unchanged. He had a chest CTA showing no pulmonary embolism. Compressive atelectasis in the left lower lung lobe. He had a transthoracic echocardiogram. The patient states that until the last few years he has not had a history of recurrent lung infections and had done well for many years post his pneumonectomy. 2. History of right lung cancer. Status post right pneumonectomy. 3. Coronary artery disease, status post cardiac stents and coronary artery bypass graft and history of bovine aortic valve replacement. RECOMMENDATIONS/PLAN: Recommend continuing meropenem for a total of 7 days at which point if he is doing well, antibiotics can be stopped. If he is not doing well at that time, we can consider extending his course of antibiotics. He may benefit from a pulmonology consultation in the setting of history of a right pneumonectomy and COPD. We will continue to follow along. HISTORY OF PRESENT ILLNESS: Mr. Navarrete is a 74-year-old male with past medical history significant for lung cancer status post right pneumonectomy, COPD, history of cardiac arrest, hypothyroidism, and coronary artery disease, status post cardiac stents and CABG, who was sent from [facility] Room [place] [facility] [place]ness [place] breath. The patient presented with acute on chronic hypoxic respiratory failure, baseline use of 2 L of oxygen and was requiring 4 to 5 liters over the past couple of days. He called EMS. It was noted at that time his oxygen concentrator was not working. In [facility], he started on BiPAP, given Zosyn, IV steroids, DuoNeb, IV Lasix. He was noted to have a white blood cell count of 16. He was transferred to [facility] [place] to the patient's request as a direct admission to the intensive care unit. It is to note that 6 weeks prior to his presentation, he presented to [facility] for a similar episode with worsening dyspnea. He was there for 2 days before he was transferred to [facility] in [place] per the family's request. He developed sudden respiratory failure and had a cardiac arrest. It was suspected this was secondary to an aspiration event. He spent 2 weeks at [facility] and went home for 3 weeks and had been doing well. He had noticed some increased swelling in his lower extremities that has remained. While here at [facility] he had a sputum culture with pseudomonas, this was multidrug resistant. After being on ceftriaxone and azithromycin, he was switched to meropenem. Urine antigens for legionella and Streptococcus pneumoniae were negative. Blood cultures with no growth to date. He has been afebrile during his stay. He was noted to have continued tachycardia with intermittent tachypnea and continued to have increased oxygen needs above his baseline. Chest x-ray upon arrival here with new mild to low lung zone airspace opacification client account representative of pneumonia, small left pleural effusion. He had a transthoracic echocardiogram showing an EF of 70 to 75 percent, low normal systolic function. Chest CTA on 12/29/[address] evidence of PE in the remaining left pulmonary arteries. Small left-sided pleural effusion with adjacent compressive atelectasis of the left lower lobe. Due to continued lower extremity edema, he had bilateral venous Doppler ultrasound showing no evidence of DVT. He was on ceftriaxone 1 g daily from to 12/30/19. Additionally, he received IV azithromycin from 12/26/19 through 12/29/19 with a missed dose on 12/30/19 and a last dose on 12/31/19. He was started on meropenem on 12/30/19, completed 4 days with today being the 5th day. He reports that his breathing has somewhat improved, but he has good times and bad times throughout the day. He has typically minimal shortness of breath with rest, but increased shortness of breath with any exertion. He denies fevers or chills. He continued to report a cough that he states is mostly nonproductive but moist. He denies joint pain, muscle pain, abdominal pain, nausea, vomiting, or diarrhea. He denies any urinary symptoms or recent travel. He reports some loose stools. He feels they are secondary to the antibiotic he has been receiving. He has no history of prosthetic materials present other than his bovine aortic valve and cardiac stents. PAST MEDICAL HISTORY: 1. COPD. 2. History of cardiac arrest. 3. Coronary artery disease. 4. Lung cancer. 5. Hypothyroidism. PAST SURGICAL HISTORY: 1. Status post right pneumonectomy. 2. Status post cardiac stents. 3. Status post coronary artery bypass graft. 4. Status post bovine aortic valve replacement. 5. Status post cataract extraction. MEDICATIONS: Home medications: 1. Atorvastatin 40 mg by mouth every evening. 2. Albuterol HFA inhaler 2 puffs inhalation every 6 hours as needed for shortness of breath or wheeze. 3. Albuterol nebulizer 1 inhalation by mouth every 6 hours as needed for cough. 4. Prednisone 20 to 40 mg by mouth daily. 5. Spiriva 1 capsule inhalation daily. 6. Metoprolol succinate 25 mg by mouth daily. 7. Levothyroxine 112 mcg by mouth daily. 8. Atrovent nebulizer 0.5 mg inhalation every 4 hours as needed for shortness of breath or wheeze. 9. Formoterol 12 mcg inhalation twice daily. 10. Doxycycline 100 mg by mouth twice daily. 11. Vitamin B12 1000 mcg sublingual daily. 12. Vitamin D 1000 units by mouth daily. 13. Cetirizine 10 mg by mouth daily. Hospital medications: 1. DuoNeb 1 nebulizer inhalation every 6 hours while awake. 2. DuoNeb 1 nebulizer every 2 hours as needed for shortness of breath or wheeze. 3. Aspirin 81 mg by mouth daily. 4. Atorvastatin 40 mg by mouth every evening. 5. Dulcolax suppository 10 mg per rectum daily as needed for constipation. 6. Zyrtec 10 mg by mouth daily. 7. Heparin sodium 5000 units subcutaneous every 8 hours. 8. Levothyroxine 112 mcg by mouth daily. 9. Magnesium oxide 400 mg by mouth twice daily. 10. Meropenem 1 g IV every 8 hours. 11. Metoprolol tartrate 5 mg IV every 6 hours as needed for heart rate greater than 130. 12. Metoprolol tartrate 25 mg by mouth twice daily. 13. Dulera 200/5 two puffs inhalation twice daily. 14. MiraLAX 17 g by mouth daily. 15. Prednisone 40 mg by mouth daily. 16. Senna 8.6 mg by mouth daily at bedtime. 17. Spiriva Respimat 2.5 mcg 2 puffs inhalation daily. ALLERGIES: LACTOSE. FAMILY HISTORY: Mother with a history of coronary artery disease and an LA as the cause of her . No family history of diabetes. Father with a history of esophageal cancer. No family history of recurrent resistant infections. SOCIAL HISTORY: Denies alcohol or recreational drug use. He is a former smoker , quitting in 2004. REVIEW OF SYSTEMS: I performed a 10-point review of systems. All the pertinent positives and negatives are mentioned in the history of present illness. The remaining review of systems is negative. PHYSICAL EXAMINATION: Vital signs: Temperature 98.5, heart rate 133, respiratory rate 20, O2 sat 98% on 4 L via nasal cannula, blood pressure 132/ 72. General Appearance: Chronically ill-appearing male, sitting up in a chair. Head: Normocephalic, atraumatic. ENT: Extraocular movements are intact. No subconjunctival hemorrhage. Moist mucous membranes. Neck: Supple. No lymphadenopathy. Neurological: Alert and oriented. Cranial nerves II through XII are grossly intact. Cardiovascular: Regular rate and rhythm. S1, S2 present. There are no murmurs, rubs, or gallops heard. Respiratory: No accessory muscle use. Lungs with scattered rhonchi throughout. Abdomen: Bowel sounds present. Abdomen large, soft, nontender. Extremities: No lower extremity edema to the legs but the dorsal aspect of bilateral feet with 2+ edema bilateral. Musculoskeletal: No clubbing or cyanosis noted. Exhibits good strength in all extremities. Psychological: Calm and cooperative. Skin: No rashes or abnormalities seen. DIAGNOSTIC STUDIES/LABORATORY DATA: Sodium 141, potassium 4.0, chloride 91, CO2 46, BUN 20, creatinine 0.61, glucose 103. White blood cell count 16.2, hemoglobin 10.3, hematocrit 32, platelet count 235. He has not had a CRP. Influenza A and B on admission was negative. Urinalysis negative on admission. Please see impression and recommendations outlined above. Recommendations have been discussed with Dr. Rohan Lucio. Thank you for asking us to see Mr. Navarrete in consultation. The case has been discussed with my attending Dr. Karsten Daniel, who agrees with the plan of care. Reviewed by KARINA ORDOÑEZ 01/04/20 1158 [id number]/[facility] #: [id number] VASILE
[2020-01-03] MEDS: Senna TAB 8.6 mg* TAB PO SCH (21:05)
[2020-01-03] MEDS: Magnesium Oxide TAB* 400 MG PO SCH (21:06)
[2020-01-04] MEDS: Albuterol/Ipratropium NEB.SOL* Albuterol 2.5 MG/Ipratropium 0.5 MG 3 ML INH SCH ×4 (01:42→19:25)
[2020-01-04] MEDS: Meropenem 1 GM PREMIX(*) 1 GM/50 ML BAG IV SCH ×3 (05:34→21:22)
[2020-01-04] MEDS: Levothyroxine TAB* 112 MCG TAB PO SCH (05:37)
[2020-01-04] MEDS: Heparin VIAL(*) 5000 UNITS/ML VIAL (FIVE THOUSAND) SUBCUT SCH ×3 (05:38→21:46)
[2020-01-04 07:24] LABS: ALT 45 U/L (7-52); AST 23 U/L (13-39); Albumin 3.2 g/dL (3.2-5.2); Albumin/Globulin Ratio 1.4 (1-3); Alkaline Phosphatase 73 U/L (34-104); BUN/Creatinine Ratio 27.3 (8-20); Blood Urea Nitrogen 18 mg/dL (6-24); Chloride 92 mmol/L (101-111); EGFR African American 143.2 (>60); EGFR Non-African American 118.3 (>60); Globulin 2.3 g/dL (2-4); Glucose 96 mg/dL (70-100); Potassium 4.1 mmol/L (3.5-5.0); Sodium 142 mmol/L (135-145); Total Protein 5.5 g/dL (6.4-8.9)
[2020-01-04 07:44] LABS: CO2 Carbon Dioxide 48 mmol/L (22-32)
[2020-01-04] MEDS: Mometasone/Formoter 200/5 MDI INH SCH ×2 (08:00→19:25)
[2020-01-04] MEDS: SPIRIVA Respimat* (tiotropium) 2.5 mcg/inh Inhaler INH SCH (08:00)
[2020-01-04] MEDS: Magnesium Oxide TAB* 400 MG PO SCH ×2 (10:03→21:22)
[2020-01-04] MEDS: Metoprolol Tartrate TAB* 25 MG PO SCH ×2 (10:03→21:22)
[2020-01-04] MEDS: Cetirizine* 10 MG TAB PO SCH (10:03)
[2020-01-04] MEDS: Aspirin 81 mg CHEW TAB* 81 MG TAB.CHEW PO SCH (10:03)
[2020-01-04] MEDS: Polyethylene Glycol 3350* 17 GM PACKET PO SCH (10:04)
--- NOTE | 2020-01-04 10:05 | PN ---
Progress Note - Progress Note Date of Service: 01/04/20 SOAP: Subjective: CC: PNA HPI: Mr. Navarrete is a 74 yo male with PMH significant for right lung cancer s/p right pneumonectomy, COPD, hx cardiac arrest, CAD with CABG and stent placement ; who presented to the emergency room with complaints of shortness of breath and acute on chronic hypoxic respiratory failure. Denies fever, chills, nausea, vomiting, or diarrhea. He reports he was able to cough up some mucous yesterday and his breathing improved after that. He continues to have an occasional cough and is using a flutter valve. Reports a few loose stools daily. Objective: Vital Signs - 8 hr 01/04/20 01/04/20 01/04/20 03:33 07:40 08:04 Temperature 97.1 F 97.7 F Pulse Rate 105 115 115 Respiratory 18 20 18 Rate Blood Pressure 104/50 117/68 (mmHg) O2 Sat by Pulse 100 100 98 Oximetry Physical Exam: General: NAD, sitting up in a chair Neurological: Alert and Oriented HEENT: Moist MM Cardiovascular: Heart rate regular Respiratory: Lung sounds with rhonchi throughout, improved from yesterday Abdominal: Bowel sounds present; ABD soft, non tender and non distended Skin: No rash Laboratory Results - last 24 hr 01/04/20 06:55 Sodium 142 Potassium 4.1 Chloride 92 L Carbon Dioxide 48 H* Anion Gap Not Reportable BUN 18 Creatinine 0.66 L Est GFR ( Amer) 143.2 Est GFR (Non-Af Amer) 118.3 BUN/Creatinine Ratio 27.3 H Glucose 96 Calcium 9.0 Magnesium 2.0 Total Bilirubin 1.60 H AST 23 ALT 45 Alkaline Phosphatase 73 Total Protein 5.5 L Albumin 3.2 Globulin 2.3 Albumin/Globulin Ratio 1.4 Microbiology 12/28/19 12:08 Aerobic Blood Culture - Final Blood Venous No Growth Day 5 Anaerobic Blood Culture - Final No Growth Day 5 12/28/19 12:10 Aerobic Blood Culture - Final Blood Venous No Growth Day 5 Anaerobic Blood Culture - Final No Growth Day 5 12/28/19 11:50 Gram Stain - Final Sputum Expectorated Sputum Culture - Final Pseudomonas Aeruginosa Normal Margaux 12/26/19 10:30 Nasal Screen MRSA (PCR) - Final Nasal Mrsa Not Detected 12/26/19 10:55 Legionella Urinary Antigen - Final Urine Negative Legionella Antigen Streptococcus pneumoniae Ag Screen - Final Negative S. pneumo Antigen Assessment: 1. Pseudomonas PNA. Sputum culture with MDR pseudomonas. Blood cultures with no growth. Urine antigens negative for s. pneumo and legionella. Afebrile and leukocytosis is improving. 2. Acute on chronic hypoxic respiratory failure. Baseline O2 is 2L via NC, currently on 3.5 L via NC 3. History of right lung cancer, S/P right pneumonectomy. Plan: Continue Meropenum, day 6/7.
--- NOTE | 2020-01-04 16:02 | PN ---
Subjective Date of Service: 01/04/20 Interval History: Patient feels dyspnea at rest, when seated. O2 weaned down to 2.5 l/m. Cough is productive, which he finds encouraging. Family History: Unchanged from Admission Social History: Unchanged from Admission Past Medical History: Unchanged from Admission Objective Active Medications: Current Meds: Albuterol/Ipratropium (Duoneb (Albuterol 2.5 Mg/Ipratropium 0.5 Mg)) 1 neb INH [id number] AWAKE [facility] Last Admin: 01/04/20 14:09 Dose: 1 neb Albuterol/Ipratropium (Duoneb (Albuterol 2.5 Mg/Ipratropium 0.5 Mg)) 1 neb INH Q2H PRN PRN Reason: SOB/WHEEZING Last Admin: 12/27/19 04:28 Dose: 1 neb Aspirin (Aspirin 81 Mg Chew Tab*) 81 mg PO DAILY [facility] Last Admin: 01/04/20 10:03 Dose: 81 mg Atorvastatin Calcium (Lipitor*) 40 mg PO QPM [facility] Last Admin: 01/03/20 17:52 Dose: 40 mg Bisacodyl (Dulcolax Supp*) 10 mg OR DAILY PRN PRN Reason: CONSTIPATION Cetirizine HCl (Zyrtec*) 10 mg PO DAILY [facility] Last Admin: 01/04/20 10:03 Dose: 10 mg Heparin Sodium (Porcine) (Heparin Vial(*)) 5,000 units SUBCUT Q8HR [facility] Last Admin: 01/04/20 13:05 Dose: 5,000 units Meropenem (Merrem 1 Gm Premix(*)) 1 gm in 50 mls @ 100 mls/hr IV Q8H [facility]; Protocol Stop: 01/06/20 12:59 Last Admin: 01/04/20 13:06 Dose: 100 mls/hr Levothyroxine Sodium (Synthroid Tab*) 112 mcg PO 0600 [facility] Last Admin: 01/04/20 05:37 Dose: 112 mcg Magnesium Oxide (Magox 400 Tab*) 400 mg PO BID [facility] Last Admin: 01/04/20 10:03 Dose: 400 mg Metoprolol Tartrate (Lopressor Iv*) 5 mg IV Q6H PRN PRN Reason: TACHYCARDIA Last Admin: 01/01/20 19:30 Dose: 5 mg Metoprolol Tartrate (Lopressor Tab*) 25 mg PO BID [facility] Last Admin: 01/04/20 10:03 Dose: 25 mg Mometasone Furoate/Formoterol Fumar (Dulera 200/5 Mdi*) 2 puff INH BID [facility] Last Admin: 01/04/20 08:00 Dose: 2 puff Polyethylene Glycol/Electrolytes (Miralax (17 Gm Dose Oliver)) 17 gm PO DAILY [facility] Last Admin: 01/04/20 10:04 Dose: Not Given Prednisone (Deltasone 20 Mg Tab) 40 mg PO DAILY [facility] Last Admin: 01/04/20 10:03 Dose: 40 mg Senna (Senokot 8.6 Mg Tab*) 1 tab PO BEDTIME [facility] Last Admin: 01/03/20 21:05 Dose: Not Given Tiotropium [place] (Spiriva Respimat 2.5 Mcg) 2 puff INH DAILY [facility] Last Admin: 01/04/20 08:00 Dose: 2 puff Vital Signs - 8 hr 01/04/20 01/04/20 01/04/20 08:04 12:15 15:45 Temperature 36.6 C 36.8 C Pulse Rate 115 103 120 Respiratory 18 22 22 Rate Blood Pressure 101/63 98/58 (mmHg) O2 Sat by Pulse 98 100 100 Oximetry Oxygen Devices in Use Now: Nasal Cannula Appearance: no acute distress Ears/Nose/Mouth/Throat: Clear Oropharnyx Neck: No Thyroid Enlargement, Masses Respiratory: Symmetrical Chest Expansion and Respiratory Effort, - - diffuse ronchi, diminished BS Cardiovascular: NL Sounds; No Murmurs; No JVD Abdominal: NL Sounds; No Tenderness; No Distention Lymphatic: No Cervical Adenopathy Neurological: Alert and Oriented x 3 Lines/Tubes/Other Access: Clean, Dry and Intact Peripheral IV - Nutrition: Malnutrition Diagnosis/Plan Malnutrition Assessment by Registered Dietitian: Malnutrition Assessment Clinical Characteristics Chronic,Severe Malnutrition Assessment: - wt loss from 185# to 145# (21.6%) in past six Criteria months - severe temporal and clavicular wasting Malnutrition Assessment: - regular unrestricted diet Interventions - pureed textures, honey-thick liquids; follow - follow [employer] progress notes for ability to upgrade (or need to downgrade) - Ensure pudding @ B-L-D; extra sauce and LS gravy for meats - follow labs, weights Malnutrition Assessment: Goals 1. adequate intake to support hydration and lean body mass without add'l wt loss 2. ideally, gradual 20# repletion of wt and lean body mass 3. maintain serum electrolytes WNL; no s/sx refeeding syndrome 4. regulation of bowel pattern; no c/o constipation (or diarrhea) Result Diagrams: 01/03/20 06:04 01/04/20 06:55 Microbiology and Other Data: Microbiology 12/28/19 12:08 Aerobic Blood Culture - Final Blood Venous No Growth Day 5 Anaerobic Blood Culture - Final No Growth Day 5 12/28/19 12:10 Aerobic Blood Culture - Final Blood Venous No Growth Day 5 Anaerobic Blood Culture - Final No Growth Day 5 12/28/19 11:50 Gram Stain - Final Sputum Expectorated Sputum Culture - Final Pseudomonas Aeruginosa Normal Margaux 12/26/19 10:30 Nasal Screen MRSA (PCR) - Final Nasal Mrsa Not Detected 12/26/19 10:55 Legionella Urinary Antigen - Final Urine Negative Legionella Antigen Streptococcus pneumoniae Ag Screen - Final Negative S. pneumo Antigen Assess/Plan/Problems-Billing Assessment: 74 yo man w/ RT lobectomy, COPD, here with acute on chronic hypoxic and hypercarbic respiratory failure due to pseudomonas, COPD exacerbation - Patient Problems (1) Acute and chronic respiratory failure with hypercapnia Current Visit: Yes Status: Acute Priority: High Code(s): J96.22 - ACUTE AND CHRONIC RESPIRATORY FAILURE WITH HYPERCAPNIA SNOMED Code(s): 8477685339171 Comment: -No infiltrate on previous imaging this admission -Continue oxygen supplementation, nebulizers -Continue prednisone for COPD exacerbation -Improving, not ready for discharge (2) Pseudomonas aeruginosa infection Current Visit: Yes Status: Acute Priority: Medium Code(s): A49.8 - OTHER BACTERIAL INFECTIONS OF UNSPECIFIED SITE SNOMED Code(s): 58739266 Comment: -Sputum growing pseudomonas sensitive to meropenem and gent. -Will need 7 days meropenem, changed order in computer, will finish Tuesday noon after 14 doses. (3) Hypomagnesemia Current Visit: Yes Status: Acute Priority: Medium Code(s): E83.42 - HYPOMAGNESEMIA SNOMED Code(s): 527794622 Comment: -Corrected w/ supplementation (4) DVT prophylaxis Current Visit: Yes Status: Acute Priority: Low Code(s): Z29.9 - ENCOUNTER FOR PROPHYLACTIC MEASURES, UNSPECIFIED SNOMED Code(s): 132297343 Comment: -SC heparin Status and Disposition: inpatient
[2020-01-04] MEDS: Atorvastatin* 40 MG TAB PO SCH (16:56)
[2020-01-04] MEDS: Senna TAB 8.6 mg* TAB PO SCH (21:22)
[2020-01-05] MEDS: Albuterol/Ipratropium NEB.SOL* Albuterol 2.5 MG/Ipratropium 0.5 MG 3 ML INH SCH ×6 (01:17→22:26)
[2020-01-05] MEDS: Levothyroxine TAB* 112 MCG TAB PO SCH (04:55)
[2020-01-05] MEDS: Heparin VIAL(*) 5000 UNITS/ML VIAL (FIVE THOUSAND) SUBCUT SCH ×3 (04:55→20:27)
[2020-01-05] MEDS: Meropenem 1 GM PREMIX(*) 1 GM/50 ML BAG IV SCH ×3 (04:56→20:26)
[2020-01-05] MEDS: Mometasone/Formoter 200/5 MDI INH SCH ×2 (07:16→19:37)
[2020-01-05] MEDS: SPIRIVA Respimat* (tiotropium) 2.5 mcg/inh Inhaler INH SCH (07:16)
--- NOTE | 2020-01-05 07:49 | PN ---
Subjective Date of Service: 01/05/20 Interval History: HD 12 on 01/04 74M PMH lung Ca s/p R lobectomy, COPD and chronic hypoxic resp failure on 2-3L NC at baseline, sp AVR, CAD s/p CABG, hypothyroid, with recent outside hospital cardiac arrest and ROSC with resultant HFpEF (?) EF 75%-poor study on prior to representing for hypoxic/hypercarbic resp failure 12/02 to pseudomonas PNA and COPD exacerbation requiring BiPAP and ICU. Transferred to floor on 01/02, stay c/b tenuous resp status. Overnight, O2 requirment up from 3 to 5L, with sig SOB, VSS-persistent sinus tach with EKG showing only RAD CXR from 01/02: L pleural effusion and persistent L lobe PNA Labs: From yesterday, sig hypercarbia to 48, not repeated today, stable leukocytosis trending down, stable normocytic anemia This morning: Seen in bed, he is able to speak in full sentences but with tachypnea, mildly uncomfortable, AOx4. Last BM 01/02, no chest pain, no GI or MSK complaints. Family History: Unchanged from Admission Social History: Unchanged from Admission Past Medical History: Unchanged from Admission Objective Active Medications: Albuterol/Ipratropium (Duoneb (Albuterol 2.5 Mg/Ipratropium 0.5 Mg)) 1 neb INH [id number] AWAKE [facility] Last Admin: 01/05/20 07:15 Dose: 1 neb Albuterol/Ipratropium (Duoneb (Albuterol 2.5 Mg/Ipratropium 0.5 Mg)) 1 neb INH Q2H PRN PRN Reason: SOB/WHEEZING Last Admin: 12/27/19 04:28 Dose: 1 neb Aspirin (Aspirin 81 Mg Chew Tab*) 81 mg PO DAILY [facility] Last Admin: 01/04/20 10:03 Dose: 81 mg Atorvastatin Calcium (Lipitor*) 40 mg PO QPM [facility] Last Admin: 01/04/20 16:56 Dose: 40 mg Bisacodyl (Dulcolax Supp*) 10 mg GA DAILY PRN PRN Reason: CONSTIPATION Cetirizine HCl (Zyrtec*) 10 mg PO DAILY [facility] Last Admin: 01/04/20 10:03 Dose: 10 mg Heparin Sodium (Porcine) (Heparin Vial(*)) 5,000 units SUBCUT Q8HR [facility] Last Admin: 01/05/20 04:55 Dose: 5,000 units Meropenem (Merrem 1 Gm Premix(*)) 1 gm in 50 mls @ 100 mls/hr IV Q8H [facility]; Protocol Stop: 01/06/20 12:59 Last Admin: 01/05/20 04:56 Dose: 100 mls/hr Levothyroxine Sodium (Synthroid Tab*) 112 mcg PO 0600 [facility] Last Admin: 01/05/20 04:55 Dose: 112 mcg Magnesium Oxide (Magox 400 Tab*) 400 mg PO BID [facility] Last Admin: 01/04/20 21:22 Dose: 400 mg Metoprolol Tartrate (Lopressor Iv*) 5 mg IV Q6H PRN PRN Reason: TACHYCARDIA Last Admin: 01/01/20 19:30 Dose: 5 mg Metoprolol Tartrate (Lopressor Tab*) 25 mg PO BID [facility] Last Admin: 01/04/20 21:22 Dose: 25 mg Mometasone Furoate/Formoterol Fumar (Dulera 200/5 Mdi*) 2 puff INH BID [facility] Last Admin: 01/05/20 07:16 Dose: 2 puff Polyethylene Glycol/Electrolytes (Miralax (17 Gm Dose Oliver)) 17 gm PO DAILY [facility] Last Admin: 01/04/20 10:04 Dose: Not Given Prednisone (Deltasone 20 Mg Tab) 40 mg PO DAILY [facility] Last Admin: 01/04/20 10:03 Dose: 40 mg Senna (Senokot 8.6 Mg Tab*) 1 tab PO BEDTIME [facility] Last Admin: 01/04/20 21:22 Dose: 1 tab Tiotropium [place] (Spiriva Respimat 2.5 Mcg) 2 puff INH DAILY [facility] Last Admin: 01/05/20 07:16 Dose: 2 puff Vital Signs - 8 hr 01/05/20 01/05/20 03:15 07:18 Temperature 97.5 F Pulse Rate 106 115 Respiratory 16 26 Rate Blood Pressure 103/66 (mmHg) O2 Sat by Pulse 100 100 Oximetry Oxygen Devices in Use Now: Nasal Cannula Appearance: Frail man with mild tachypnea, able to speak full sentences but winded as doing so Eyes: No Scleral Icterus, PERRLA Ears/Nose/Mouth/Throat: NL Teeth, Lips, Gums Neck: NL Appearance and Movements; NL JVP, Trachea Midline Respiratory: - - Blt rhonchi and crackles to L, poor air movement throughout Cardiovascular: - - Sinus tachycardia Abdominal: NL Sounds; No Tenderness; No Distention, No Hepatosplenomegaly Lymphatic: No Cervical Adenopathy Extremities: - - 1+ pitting edema Skin: No Rash or Ulcers Neurological: Alert and Oriented x 3 - Nutrition: Malnutrition Diagnosis/Plan Malnutrition Assessment by Registered Dietitian: Malnutrition Assessment Clinical Characteristics Chronic,Severe Malnutrition Assessment: - wt loss from 185# to 145# (21.6%) in past six Criteria months - severe temporal and clavicular wasting Malnutrition Assessment: - regular unrestricted diet Interventions - pureed textures, honey-thick liquids; follow - follow [employer] progress notes for ability to upgrade (or need to downgrade) - Ensure pudding @ B-L-D; extra sauce and LS gravy for meats - follow labs, weights Malnutrition Assessment: Goals 1. adequate intake to support hydration and lean body mass without add'l wt loss 2. ideally, gradual 20# repletion of wt and lean body mass 3. maintain serum electrolytes WNL; no s/sx refeeding syndrome 4. regulation of bowel pattern; no c/o constipation (or diarrhea) Result Diagrams: 01/05/20 08:29 01/05/20 08:29 Microbiology and Other Data: Microbiology 12/28/19 12:08 Aerobic Blood Culture - Final Blood Venous No Growth Day 5 Anaerobic Blood Culture - Final No Growth Day 5 12/28/19 12:10 Aerobic Blood Culture - Final Blood Venous No Growth Day 5 Anaerobic Blood Culture - Final No Growth Day 5 12/28/19 11:50 Gram Stain - Final Sputum Expectorated Sputum Culture - Final Pseudomonas Aeruginosa Normal Margaux 12/26/19 10:30 Nasal Screen MRSA (PCR) - Final Nasal Mrsa Not Detected 12/26/19 10:55 Legionella Urinary Antigen - Final Urine Negative Legionella Antigen Streptococcus pneumoniae Ag Screen - Final Negative S. pneumo Antigen Diagnostic Imaging: Echo 12/26 Conclusions Summary: - Procedure narrative: The study was technically limited due to poor acoustic window availability, heart shifted to the right. - Left ventricle: The cavity size is moderately reduced. Wall thickness is normal. Systolic function is vigorous. The estimated ejection fraction is 70-75%. - Right ventricle: Systolic function is low normal. - Tricuspid valve: There is trace to mild regurgitation. - Pulmonary arteries: Systolic pressure is within the normal range. The peak pressure during systole by Doppler is 30.0 mm Hg. CTA IMPRESSION: 1. No CT of evidence of pulmonary embolism in the remaining left pulmonary arteries. 2. There is a small left-sided pleural effusion with adjacent compressive atelectasis of the left lower lobe. 3. Extensive chronic, degenerative and postsurgical changes. 12/29 No DVT Assess/Plan/Problems-Billing Assessment: 74M PMH lung Ca s/p R lobectomy, COPD and chronic hypoxic resp failure on 2-3L NC at baseline, sp AVR, CAD s/p CABG, hypothyroid, with recent outside hospital cardiac arrest and ROSC with resultant HFpEF (?) EF 75%-poor study on prior to representing for hypoxic/hypercarbic resp failure 12/02 to pseudomonas PNA and COPD exacerbation requiring BiPAP and ICU. Transferred to floor on 01/02, stay c/b tenuous resp status. - Patient Problems (1) Acute and chronic respiratory failure with hypercapnia Current Visit: Yes Status: Acute Priority: High Code(s): J96.22 - ACUTE AND CHRONIC RESPIRATORY FAILURE WITH HYPERCAPNIA SNOMED Code(s): 3374003387541 Comment: -Multifactorial, PNA, COPD exacerbation in setting of poor reserve, ? volume overload, last dose of Lasix given on 01/02, may benefit from acetazolmide in near future as well -Was on BiPAP in ICU and e/o worsening hypercarbia, repeat labs now. Low threshold for BiPAP for MS changes, will attempt QHS BiPAP -Lasix to keep even, currently appears overloaded, Lasix 40mg IV x 1 now, may need daily -On pred 40, Day 12 of steroids, continue LAMA, LABA neb tx, add metaneb and pulm consult -Meropenem Day 6/7 on 01/04 (2) Pneumonia due to Pseudomonas Current Visit: Yes Status: Acute Comment: -Sputum growing pseudomonas sensitive to meropenem and gent. -Will need 7 days meropenem, changed order in computer, will finish Tuesday noon after 14 doses. (3) CAD (coronary artery disease) Current Visit: Yes Status: Acute Code(s): I25.10 - ATHSCL HEART DISEASE OF [place] CORONARY ARTERY W/O ANG PCTRS SNOMED Code(s): 16021854 Comment: -On BB, asa, statin -Recent outside arrest, keep K>4, Mag>2 -No RWMA on echo, though poor study with such sig sinus tachycardia (4) Sinus tachycardia Current Visit: Yes Status: Acute Code(s): R00.0 - TACHYCARDIA, UNSPECIFIED SNOMED Code(s): 04415635 Comment: -Suspect reactive, no e/o arrythmia, monitor on tele -Remains on Metoprolol 25 BID, PRN IV >130 sustained (5) S/P AVR Current Visit: Yes Status: Acute Code(s): Z95.2 - PRESENCE OF PROSTHETIC HEART VALVE SNOMED Code(s): 3737122390680 Comment: -Initial echo was hyperdynamic but no e/o RWMA or issues with the valve, may neeed repeat as outpt (6) COPD (chronic obstructive pulmonary disease) Current Visit: Yes Status: Acute Code(s): J44.9 - CHRONIC OBSTRUCTIVE PULMONARY DISEASE, UNSPECIFIED SNOMED Code(s): 58317970 Comment: -On home 2-3L NC -Pulm consult to help optimize (7) Hypothyroid Current Visit: Yes Status: Acute Code(s): E03.9 - HYPOTHYROIDISM, UNSPECIFIED SNOMED Code(s): 58762727 Comment: -Continue levothryoxine (8) Normocytic anemia Current Visit: Yes Status: Acute Code(s): D64.9 - ANEMIA, UNSPECIFIED SNOMED Code(s): 742790045 Comment: -Stable, add on iron studies non urgent (9) DVT prophylaxis Current Visit: Yes Status: Acute Priority: Low Code(s): Z29.9 - ENCOUNTER FOR PROPHYLACTIC MEASURES, UNSPECIFIED SNOMED Code(s): 403147285 Comment: -SC heparin (10) Full code status Current Visit: Yes Status: Acute Code(s): Z78.9 - OTHER SPECIFIED HEALTH STATUS SNOMED Code(s): 202683361 Status and Disposition: Inpatient Lines: PIV Tubes: no gerardo Diet: Regular, pureed and nectar thick Case Mgmt: May need rehab, will order PT/OT when breathing more stable
[2020-01-05] MEDS ORDERED: Furosemide IV* 10 MG/ML 2 ML VIAL (20 MG) IV ONE (08:05)
[2020-01-05] MEDS ORDERED: Furosemide IV* 10 MG/ML VIAL (40 MG) IV ONE (08:24)
[2020-01-05] MEDS: Aspirin 81 mg CHEW TAB* 81 MG TAB.CHEW PO SCH (08:33)
[2020-01-05] MEDS: Cetirizine* 10 MG TAB PO SCH (08:33)
[2020-01-05] MEDS: Polyethylene Glycol 3350* 17 GM PACKET PO SCH (08:33)
[2020-01-05] MEDS: Metoprolol Tartrate TAB* 25 MG PO SCH (08:33)
[2020-01-05] MEDS: Magnesium Oxide TAB* 400 MG PO SCH ×2 (08:33→20:27)
[2020-01-05 08:35] LABS: Hematocrit 31 % (42-52); Hemoglobin 10.1 g/dL (14.0-18.0); Mean Corpuscular HGB Conc 33 g/dL (31-36); Mean Corpuscular Hemoglobin 29 pg (27-31); Mean Corpuscular Volume 90 fL (80-94); Mean Platelet Volume 8.7 fL (7.4-10.4); Platelet Count 253 10^3/uL (150-450); Red Blood Count 3.44 10^6 /uL (4.18-5.48); Red Cell Distribution Width 16 % (10-15); White Blood Count 16.2 10^3/uL (3.5-10.8)
[2020-01-05 08:54] LABS: BUN/Creatinine Ratio 23.4 (8-20); Blood Urea Nitrogen 15 mg/dL (6-24); Chloride 90 mmol/L (101-111); EGFR African American 148.3 (>60); EGFR Non-African American 122.6 (>60); Glucose 90 mg/dL (70-100); Potassium 4.5 mmol/L (3.5-5.0); Sodium 139 mmol/L (135-145)
[2020-01-05 09:01] LABS: ABS Lymphocytes 0.7 10^3/ul (1.0-4.8); ABS Monocytes 1.4 10^3/ul (0-0.8); ABS Neutrophils 14.2 10^3/ul (1.5-7.7); Eosinophil % 0.2 %; Lymphocyte % 4.1 %
[2020-01-05 09:12] LABS: CO2 Carbon Dioxide 46 mmol/L (22-32)
[2020-01-05] MEDS: methylPREDNISolone SOD 40 MG* 1 ML VIAL IV SCH ×2 (13:15→20:26)
[2020-01-05] MEDS: Atorvastatin* 40 MG TAB PO SCH (17:19)
[2020-01-05] MEDS: Senna TAB 8.6 mg* TAB PO SCH (20:27)
[2020-01-05] MEDS ORDERED: NS 0.9% 500 ML* 500 ML IV ONE (20:43)
[2020-01-05] MEDS ORDERED: Metoprolol Tartrate TAB* 50 mg PO SCH (21:00)
--- NOTE | 2020-01-05 21:19 | CONS ---
PULMONARY CONSULTATION REPORT: DATE OF CONSULT: 01/05/20 CONSULTATION REQUESTED BY: Dr. Guillermina Craig. REASON FOR CONSULT: Evaluation of hypoxemic and hypercapnic respiratory failure. HISTORY OF PRESENT ILLNESS: The patient is a 74-year-old male with history of lung cancer, status post right pneumonectomy in the past; history of COPD; coronary artery disease; history of valve replacement. The patient was recently hospitalized with cardiac arrest. The patient was sent in from [place] for evaluation of worsening shortness of breath over the past 1 week. The patient reports cough without much productive phlegm. Denies fevers or chills. Denies URI symptoms. The patient has history of COPD, requiring O2 at 2 L per minute, has found to have been requiring high FiO2. The patient was admitted to ICU that required BiPAP and high flow O2. The patient was found to be in acute hypoxemic and hypercapnic respiratory failure. He was diagnosed with pseudomonal pneumonia. The patient subsequently stabilized and was transferred to regular medical floor on 01/03/20. The patient had worsening shortness of breath today. His O2 requirements have also increased since. The patient was seen and examined at bedside. The patient reports significant dyspnea even with minimal exertion and talking. The patient reports having cough, but unable to expectorate any phlegm. The patient denies any chest pain. The patient also with worsening hypercapnia on the labs. Leukocytosis has been trending down. He was found to have PCO2 of 69 with pH of 7.32 on admission. Chest x-ray on admission was reviewed - the patient with airspace opacities in left starting from the left mid lung with associated left pleural effusion. The patient is status post right pneumonectomy. CT scan of the chest from 12/28/19 and CTA of the chest from 12/29/19 was also reviewed. The patient noted to have left lower lobe pneumonia with associated effusion as seen on previous chest x-ray. The patient also with 0.7-cm nodule in the left apex. No significant mediastinal or hilar adenopathy was noted. PAST MEDICAL HISTORY: 1. History of lung cancer, status post right pneumonectomy. 2. History of COPD. 3. History of recent cardiac arrest with return of spontaneous circulation. 4. Hypothyroidism. PAST SURGICAL HISTORY: 1. Right pneumonectomy in 2004. 2. Cardiac stent placement. 3. CABG. 4. Bovine aortic valve replacement. 5. Cataract removal. MEDICATIONS AT HOME: 1. Formoterol. 2. Atorvastatin. 3. Spiriva. 4. Cetirizine. 5. Albuterol. 6. Metoprolol. 7. Levothyroxine. 8. Vitamin B12. 9. Cholecalciferol. ALLERGIES: LACTOSE. FAMILY HISTORY: Father with throat cancer. Mother with NE. SOCIAL HISTORY: The patient lives at home with his . Quit smoking in 2004 with no alcohol or drug abuse. REVIEW OF SYSTEMS: All 10 systems were reviewed and as per HPI. PHYSICAL EXAM: The patient sitting up in chair, appears to be in mild respiratory distress. Vital Signs: Temperature 97.9, pulse 110 beats per minute, respiratory rate 22 per minute, O2 sat 96% on 5 L, blood pressure 105/ 66. HEENT: Pupils equal, reactive to light. Mucous membranes moist. Accessory muscles in use. Lungs: Coarse rhonchi and wheeze on auscultation bilaterally even on the right chest. Cardiovascular: S1, S2 present and regular. Abdomen: Soft, nontender, nondistended. Bowel sounds present. Extremities: Normal range of motion. Skin: No rash or bruises. DIAGNOSTIC STUDIES/LAB DATA: WBC count 16.2, hemoglobin 10.1, hematocrit 31, platelet count 253. Sodium 139, potassium 4.5, chloride 90, bicarb 46, BUN 15, creatinine 0.64. Influenza A and B negative. Negative for legionella and Strep pneumo antigens. Sputum cultures showed pseudomonas sensitive to gentamicin and meropenem. The patient currently on meropenem. Chest x-ray and CT chest as described above in HPI. IMPRESSION AND RECOMMENDATIONS: 74-year-old male with history of chronic obstructive pulmonary disease; lung cancer, status post right pneumonectomy in 2004, admitted with worsening shortness of breath and cough, found to have pseudomonal pneumonia. Usually pseudomonas would result in thick copious secretions. The patient unable to expectorate secretions currently. He also required NIPPV and high-flow oxygen in the ICU. Currently requiring 4 to 5 L of oxygen. He is having trouble ventilating. Would initiate the patient on Solu- Medrol. The patient on nebulizers, increased frequency to q.4 while awake. Will continue with MetaNeb. Given significant wheezing on auscultation , will wait on administering mucolytics. Will consider hypertonic saline or Mucomyst once respiratory status is more stable. Continue with meropenem for pseudomonas. Advised the patient to be compliant with flutter device use. Thank you for allowing me to participate in the care of your patient. Will follow up with you. [id number]/[facility] #: [id number] VASILE
[2020-01-06] MEDS: Albuterol/Ipratropium NEB.SOL* Albuterol 2.5 MG/Ipratropium 0.5 MG 3 ML INH SCH ×4 (03:58→20:29)
[2020-01-06] MEDS: Meropenem 1 GM PREMIX(*) 1 GM/50 ML BAG IV SCH ×2 (05:52→17:54)
[2020-01-06] MEDS: methylPREDNISolone SOD 40 MG* 1 ML VIAL IV SCH ×3 (05:58→20:18)
[2020-01-06] MEDS: Heparin VIAL(*) 5000 UNITS/ML VIAL (FIVE THOUSAND) SUBCUT SCH ×3 (05:58→20:21)
[2020-01-06] MEDS: Levothyroxine TAB* 112 MCG TAB PO SCH (05:59)
[2020-01-06 06:07] LABS: Hematocrit 30 % (42-52); Hemoglobin 9.7 g/dL (14.0-18.0); Mean Corpuscular HGB Conc 33 g/dL (31-36); Mean Corpuscular Hemoglobin 29 pg (27-31); Mean Corpuscular Volume 90 fL (80-94); Mean Platelet Volume 8.8 fL (7.4-10.4); Platelet Count 253 10^3/uL (150-450); Red Blood Count 3.32 10^6 /uL (4.18-5.48); Red Cell Distribution Width 15 % (10-15); White Blood Count 30.3 10^3/uL (3.5-10.8)
[2020-01-06 06:26] LABS: ABS Lymphocytes 0.4 10^3/ul (1.0-4.8); ABS Monocytes 0.9 10^3/ul (0-0.8); ABS Neutrophils 29.1 10^3/ul (1.5-7.7); Calcium 8.8 mg/dL (8.6-10.3); Chloride 90 mmol/L (101-111); Lymphocyte % 1.2 %; Magnesium 2.2 mg/dL (1.9-2.7); Potassium 4.7 mmol/L (3.5-5.0); Sodium 136 mmol/L (135-145)
[2020-01-06 06:32] LABS: BUN/Creatinine Ratio 28.8 (8-20); Blood Urea Nitrogen 17 mg/dL (6-24); EGFR African American 162.9 (>60); EGFR Non-African American 134.7 (>60); Glucose 123 mg/dL (70-100)
[2020-01-06 06:51] LABS: CO2 Carbon Dioxide 46 mmol/L (22-32)
[2020-01-06] MEDS: SPIRIVA Respimat* (tiotropium) 2.5 mcg/inh Inhaler INH SCH (07:31)
[2020-01-06] MEDS: Mometasone/Formoter 200/5 MDI INH SCH ×2 (07:32→20:33)
--- NOTE | 2020-01-06 08:11 | PN ---
Subjective Date of Service: 01/06/20 Interval History: HD 13 on 01/05 74M PMH lung Ca s/p R lobectomy, COPD and chronic hypoxic resp failure on 2-3L NC at baseline, sp AVR, CAD s/p CABG, hypothyroid, with recent outside hospital cardiac arrest and ROSC with resultant HFpEF (?) EF 75%-poor study on prior to representing for hypoxic/hypercarbic resp failure 12/02 to pseudomonas PNA and COPD exacerbation requiring BiPAP and ICU. Transferred to floor on 01/02, stay c/b tenuous resp status. Overnight, some hypotension and tachycardia given Metop and fluids (Metop dose increased yesterday) CXR from 01/02: L pleural effusion and persistent L lobe PNA Labs: Sig hypercarbia to 46, worsening leukocytosis after starting higher dose steroids This morning, seen in bed, he feels his sputum is loosening, still unable to bring it up but with more rhonchi. Slept with BiPAP last night comfortably. No CP, mild SOB, no GI or MSK complaints. Family History: Unchanged from Admission Social History: Unchanged from Admission Past Medical History: Unchanged from Admission Objective Active Medications: Albuterol/Ipratropium (Duoneb (Albuterol 2.5 Mg/Ipratropium 0.5 Mg)) 1 neb INH [id number] AWAKE [facility] Last Admin: 01/06/20 07:31 Dose: 1 neb Aspirin (Aspirin 81 Mg Chew Tab*) 81 mg PO DAILY [facility] Last Admin: 01/05/20 08:33 Dose: 81 mg Atorvastatin Calcium (Lipitor*) 40 mg PO QPM JARED Last Admin: 01/05/20 17:19 Dose: 40 mg Bisacodyl (Dulcolax Supp*) 10 mg OH DAILY PRN PRN Reason: CONSTIPATION Cetirizine HCl (Zyrtec*) 10 mg PO DAILY [facility] Last Admin: 01/05/20 08:33 Dose: 10 mg Heparin Sodium (Porcine) (Heparin Vial(*)) 5,000 units SUBCUT Q8HR [facility] Last Admin: 01/06/20 05:58 Dose: 5,000 units Meropenem (Merrem 1 Gm Premix(*)) 1 gm in 50 mls @ 100 mls/hr IV Q8H [facility]; Protocol Stop: 01/06/20 12:59 Last Admin: 01/06/20 05:52 Dose: 100 mls/hr Levothyroxine Sodium (Synthroid Tab*) 112 mcg PO 0600 [facility] Last Admin: 01/06/20 05:59 Dose: 112 mcg Magnesium Oxide (Magox 400 Tab*) 400 mg PO BID [facility] Last Admin: 01/05/20 20:27 Dose: 400 mg Methylprednisolone Sodium Succinate (Solu-Medrol 40 Mg) 20 mg IV Q8H [facility] Last Admin: 01/06/20 05:58 Dose: 20 mg Metoprolol Tartrate (Lopressor Iv*) 5 mg IV Q6H PRN PRN Reason: TACHYCARDIA Last Admin: 01/01/20 19:30 Dose: 5 mg Metoprolol Tartrate (Lopressor Tab*) 50 mg PO BID [facility] Last Admin: 01/05/20 20:27 Dose: 50 mg Mometasone Furoate/Formoterol Fumar (Dulera 200/5 Mdi*) 2 puff INH BID [facility] Last Admin: 01/06/20 07:32 Dose: 2 puff Polyethylene Glycol/Electrolytes (Miralax (17 Gm Dose Oliver)) 17 gm PO DAILY [facility] Last Admin: 01/05/20 08:33 Dose: Not Given Senna (Senokot 8.6 Mg Tab*) 1 tab PO BEDTIME [facility] Last Admin: 01/05/20 20:27 Dose: Not Given Tiotropium [place] (Spiriva Respimat 2.5 Mcg) 2 puff INH DAILY [facility] Last Admin: 01/06/20 07:31 Dose: 2 puff Vital Signs - 8 hr 01/06/20 01/06/20 01/06/20 03:00 03:05 07:38 Temperature 97.8 F Pulse Rate 99 107 Respiratory 16 17 Rate Blood Pressure 87/55 115/80 (mmHg) O2 Sat by Pulse 97 98 Oximetry Oxygen Devices in Use Now: Nasal Cannula Appearance: Pleasant man in NAD, mildly SOB with conversation and after coughing Eyes: No Scleral Icterus, PERRLA Ears/Nose/Mouth/Throat: NL Teeth, Lips, Gums, Mucous Membranes Moist Neck: NL Appearance and Movements; NL JVP Respiratory: Symmetrical Chest Expansion and Respiratory Effort, - - Diffuse rhonchi, blt crackles, no wheezing Cardiovascular: NL Sounds; No Murmurs; No JVD, RRR Abdominal: NL Sounds; No Tenderness; No Distention, No Hepatosplenomegaly Lymphatic: No Cervical Adenopathy Extremities: No Edema Skin: No Rash or Ulcers Neurological: Alert and Oriented x 3 - Nutrition: Malnutrition Diagnosis/Plan Malnutrition Assessment by Registered Dietitian: Malnutrition Assessment Clinical Characteristics Chronic,Severe Malnutrition Assessment: - wt loss from 185# to 145# (21.6%) in past six Criteria months - severe temporal and clavicular wasting Malnutrition Assessment: - regular unrestricted diet Interventions - pureed textures, honey-thick liquids; follow - follow [employer] progress notes for ability to upgrade (or need to downgrade) - Ensure pudding @ B-L-D; extra sauce and LS gravy for meats - follow labs, weights Malnutrition Assessment: Goals 1. adequate intake to support hydration and lean body mass without add'l wt loss 2. ideally, gradual 20# repletion of wt and lean body mass 3. maintain serum electrolytes WNL; no s/sx refeeding syndrome 4. regulation of bowel pattern; no c/o constipation (or diarrhea) Result Diagrams: 01/06/20 05:48 01/06/20 05:48 Additional Lab and Data: Laboratory Tests 01/03/20 01/03/20 06:04 06:04 Calcium 9.2 Ionized Calcium 1.15 L Total Bilirubin 1.70 H Microbiology and Other Data: Microbiology 12/28/19 12:08 Aerobic Blood Culture - Final Blood Venous No Growth Day 5 Anaerobic Blood Culture - Final No Growth Day 5 12/28/19 12:10 Aerobic Blood Culture - Final Blood Venous No Growth Day 5 Anaerobic Blood Culture - Final No Growth Day 5 12/28/19 11:50 Gram Stain - Final Sputum Expectorated Sputum Culture - Final Pseudomonas Aeruginosa Normal Margaux 12/26/19 10:30 Nasal Screen MRSA (PCR) - Final Nasal Mrsa Not Detected 12/26/19 10:55 Legionella Urinary Antigen - Final Urine Negative Legionella Antigen Streptococcus pneumoniae Ag Screen - Final Negative S. pneumo Antigen Diagnostic Imaging: Echo 12/26 Conclusions Summary: - Procedure narrative: The study was technically limited due to poor acoustic window availability, heart shifted to the right. - Left ventricle: The cavity size is moderately reduced. Wall thickness is normal. Systolic function is vigorous. The estimated ejection fraction is 70-75%. - Right ventricle: Systolic function is low normal. - Tricuspid valve: There is trace to mild regurgitation. - Pulmonary arteries: Systolic pressure is within the normal range. The peak pressure during systole by Doppler is 30.0 mm Hg. CTA IMPRESSION: 1. No CT of evidence of pulmonary embolism in the remaining left pulmonary arteries. 2. There is a small left-sided pleural effusion with adjacent compressive atelectasis of the left lower lobe. 3. Extensive chronic, degenerative and postsurgical changes. 12/29 No DVT Assess/Plan/Problems-Billing Assessment: 74M PMH lung Ca s/p R lobectomy, COPD and chronic hypoxic resp failure on 2-3L NC at baseline, sp AVR, CAD s/p CABG, hypothyroid, with recent outside hospital cardiac arrest and ROSC with resultant HFpEF (?) EF 75%-poor study on prior to representing for hypoxic/hypercarbic resp failure 12/02 to pseudomonas PNA and COPD exacerbation requiring BiPAP and ICU. Transferred to floor on 01/02, stay c/b tenuous resp status. - Patient Problems (1) Acute and chronic respiratory failure with hypercapnia Current Visit: Yes Status: Acute Priority: High Code(s): J96.22 - ACUTE AND CHRONIC RESPIRATORY FAILURE WITH HYPERCAPNIA SNOMED Code(s): 6494189887448 Comment: - Multifactorial, PNA, COPD exacerbation in setting of poor reserve, ? volume overload - QHS BIPAP, Metanebs, Steroids, Lasix (held 01/05, resume 01/06) - Was on Pred 40mg, changed to Methylpred IV Q 8 on 01/04, Day 13 of steroids, continue LAMA, LABA neb tx, appreciate pulm - Meropenem Day 05/09 (extended) on 01/05 (2) Pneumonia due to Pseudomonas Current Visit: Yes Status: Acute Comment: - Sputum growing pseudomonas sensitive to meropenem - Will need 10 days meropenem, changed order in computer, will finish 01/07 (3) CAD (coronary artery disease) Current Visit: Yes Status: Acute Code(s): I25.10 - ATHSCL HEART DISEASE OF [place] CORONARY ARTERY W/O ANG PCTRS SNOMED Code(s): 54778719 Comment: - On BB, asa, statin - Recent outside arrest, keep K>4, Mag>2 - No RWMA on echo, though poor study with such sig sinus tachycardia (4) Sinus tachycardia Current Visit: Yes Status: Acute Code(s): R00.0 - TACHYCARDIA, UNSPECIFIED SNOMED Code(s): 31931707 Comment: - Suspect reactive, no e/o arrythmia, monitor on tele - Remains on Metoprolol 25 BID, PRN IV >130 sustained, attempted to increase to 50mg, though did not tolerate (5) S/P AVR Current Visit: Yes Status: Acute Code(s): Z95.2 - PRESENCE OF PROSTHETIC HEART VALVE SNOMED Code(s): 9302833452363 Comment: - Initial echo was hyperdynamic but no e/o RWMA or issues with the valve, may neeed repeat as outpt (6) COPD (chronic obstructive pulmonary disease) Current Visit: Yes Status: Acute Code(s): J44.9 - CHRONIC OBSTRUCTIVE PULMONARY DISEASE, UNSPECIFIED SNOMED Code(s): 52992232 Comment: - On home 2-3L NC - Appreciate pulmonary consultation, added back high dose steroids, on metanebs , and mucolytics on 01/06 (7) Hypothyroid Current Visit: Yes Status: Acute Code(s): E03.9 - HYPOTHYROIDISM, UNSPECIFIED SNOMED Code(s): 64169025 Comment: - Continue levothryoxine (8) Normocytic anemia Current Visit: Yes Status: Acute Code(s): D64.9 - ANEMIA, UNSPECIFIED SNOMED Code(s): 895221684 Comment: - Stable, add on iron studies non urgent (9) DVT prophylaxis Current Visit: Yes Status: Acute Priority: Low Code(s): Z29.9 - ENCOUNTER FOR PROPHYLACTIC MEASURES, UNSPECIFIED SNOMED Code(s): 133200981 Comment: - SC heparin (10) Full code status Current Visit: Yes Status: Acute Code(s): Z78.9 - OTHER SPECIFIED HEALTH STATUS SNOMED Code(s): 119618316 Status and Disposition: Inpatient Lines: PIV Tubes: no gerardo Diet: Regular, pureed and nectar thick Case Mgmt: May need rehab, will order PT/OT to start 01/06
[2020-01-06] MEDS: Metoprolol Tartrate TAB* 50 mg PO SCH ×2 (09:04→20:19)
[2020-01-06] MEDS: Polyethylene Glycol 3350* 17 GM PACKET PO SCH (09:04)
[2020-01-06] MEDS: Magnesium Oxide TAB* 400 MG PO SCH ×2 (09:04→20:20)
[2020-01-06] MEDS: Aspirin 81 mg CHEW TAB* 81 MG TAB.CHEW PO SCH (09:04)
[2020-01-06] MEDS: Cetirizine* 10 MG TAB PO SCH (09:04)
[2020-01-06] MEDS: Atorvastatin* 40 MG TAB PO SCH (17:53)
[2020-01-06] MEDS: Senna TAB 8.6 mg* TAB PO SCH (20:21)
[2020-01-07] MEDS: Albuterol/Ipratropium NEB.SOL* Albuterol 2.5 MG/Ipratropium 0.5 MG 3 ML INH SCH ×5 (01:36→19:09)
[2020-01-07] MEDS: Meropenem 1 GM PREMIX(*) 1 GM/50 ML BAG IV SCH ×3 (01:53→17:05)
[2020-01-07] MEDS: methylPREDNISolone SOD 40 MG* 1 ML VIAL IV SCH ×3 (06:02→20:03)
[2020-01-07] MEDS: Levothyroxine TAB* 112 MCG TAB PO SCH (06:02)
[2020-01-07] MEDS: Heparin VIAL(*) 5000 UNITS/ML VIAL (FIVE THOUSAND) SUBCUT SCH ×3 (06:02→20:03)
[2020-01-07 06:21] LABS: Hematocrit 30 % (42-52); Hemoglobin 9.8 g/dL (14.0-18.0); Mean Corpuscular HGB Conc 33 g/dL (31-36); Mean Corpuscular Hemoglobin 29 pg (27-31); Mean Corpuscular Volume 90 fL (80-94); Mean Platelet Volume 8.9 fL (7.4-10.4); Platelet Count 269 10^3/uL (150-450); Red Blood Count 3.36 10^6 /uL (4.18-5.48); Red Cell Distribution Width 15 % (10-15); White Blood Count 29.2 10^3/uL (3.5-10.8)
[2020-01-07 06:22] LABS: ABS Basophils 0.1 10^3/ul (0-0.2); ABS Lymphocytes 0.3 10^3/ul (1.0-4.8); ABS Monocytes 0.9 10^3/ul (0-0.8); Lymphocyte % 0.9 %
[2020-01-07 06:36] LABS: BUN/Creatinine Ratio 29.9 (8-20); Calcium 9.1 mg/dL (8.6-10.3); EGFR African American 140.7 (>60); EGFR Non-African American 116.3 (>60); Potassium 4.4 mmol/L (3.5-5.0)
[2020-01-07 07:56] LABS: Magnesium 2.4 mg/dL (1.9-2.7)
[2020-01-07] MEDS: Acetylcysteine INHALATION SOL* 200 MG/ML NEB.SOLN 10 ML INH SCH ×3 (08:02→19:09)
[2020-01-07] MEDS: SPIRIVA Respimat* (tiotropium) 2.5 mcg/inh Inhaler INH SCH (08:06)
[2020-01-07] MEDS: Mometasone/Formoter 200/5 MDI INH SCH ×2 (08:06→19:09)
[2020-01-07] MEDS ORDERED: Furosemide IV* 10 MG/ML VIAL (40 MG) IV SCH (09:00)
[2020-01-07] MEDS: Metoprolol Tartrate TAB* 50 mg PO SCH ×3 (09:42→20:13)
[2020-01-07] MEDS: Cetirizine* 10 MG TAB PO SCH (10:06)
[2020-01-07] MEDS: Furosemide IV* 10 MG/ML 2 ML VIAL (20 MG) IV SCH (10:06)
[2020-01-07] MEDS: Magnesium Oxide TAB* 400 MG PO SCH ×2 (10:06→20:13)
[2020-01-07] MEDS: Aspirin 81 mg CHEW TAB* 81 MG TAB.CHEW PO SCH (10:06)
--- NOTE | 2020-01-07 10:16 | PN ---
Progress Note - Progress Note Date of Service: 01/07/20 SOAP: Subjective: CC: PNA HPI: Mr. Navarrete is a 74 yo male with PMH significant for right lung cancer s/p right pneumonectomy, COPD, hx cardiac arrest, CAD with CABG and stent placement ; who presented to the emergency room with complaints of shortness of breath and acute on chronic hypoxic respiratory failure. Denies fever, chills, nausea, vomiting, or diarrhea. He reports increased shortness of breath since yesterday. He feels that the increased SOB is secondary to the oxygen being turned down and being unable to move mucous in his chest today. Now on 4 L O2 via NC. Objective: Vital Signs - 8 hr 01/07/20 01/07/20 01/07/20 03:07 03:50 07:45 Temperature 97.4 F 98.3 F Pulse Rate 103 108 116 Respiratory 20 20 22 Rate Blood Pressure 100/52 108/65 (mmHg) O2 Sat by Pulse 86 95 94 Oximetry Physical Exam: General: NAD, sitting up in a chair Neurological: Alert and Oriented HEENT: Moist MM Cardiovascular: Heart rate regular Respiratory: Lung sounds clear, diminished. Lung sounds absent on the right Abdominal: Bowel sounds present; ABD soft, non tender and non distended Skin: No rash Laboratory Results - last 24 hr 01/07/20 01/07/20 01/07/20 04:21 05:52 05:52 WBC 29.2 H RBC 3.36 L Hgb 9.8 L Hct 30 L MCV 90 MCH 29 MCHC 33 RDW 15 Plt Count 269 MPV 8.9 Neut % (Auto) 95.7 Lymph % (Auto) 0.9 [place] % (Auto) 3.2 Eos % (Auto) 0.0 Baso % (Auto) 0.2 Absolute Neuts (auto) 28.0 H Absolute Lymphs (auto) 0.3 L Absolute Monos (auto) 0.9 H Absolute Eos (auto) 0.0 Absolute Basos (auto) 0.1 Absolute Nucleated RBC 0.0 Nucleated RBC % 0.0 ABG pH 7.41 ABG pCO2 79 H* ABG pO2 167 H ABG HCO3 41.1 H* ABG O2 Saturation 100.0 H ABG Base Excess 20.7 H Sodium 139 Potassium 4.4 Chloride 91 L Carbon Dioxide 45 H* Anion Gap 3 BUN 20 Creatinine 0.67 Est GFR ( Amer) 140.7 Est GFR (Non-Af Amer) 116.3 BUN/Creatinine Ratio 29.9 H Glucose 142 H Calcium 9.1 Magnesium 2.4 Iron 66 Ferritin 202.0 Microbiology 12/28/19 12:08 Aerobic Blood Culture - Final Blood Venous No Growth Day 5 Anaerobic Blood Culture - Final No Growth Day 5 12/28/19 12:10 Aerobic Blood Culture - Final Blood Venous No Growth Day 5 Anaerobic Blood Culture - Final No Growth Day 5 12/28/19 11:50 Gram Stain - Final Sputum Expectorated Sputum Culture - Final Pseudomonas Aeruginosa Normal Margaux 12/26/19 10:30 Nasal Screen MRSA (PCR) - Final Nasal Mrsa Not Detected 12/26/19 10:55 Legionella Urinary Antigen - Final Urine Negative Legionella Antigen Streptococcus pneumoniae Ag Screen - Final Negative S. pneumo Antigen Assessment: 1. Pseudomonas PNA. Sputum culture with MDR pseudomonas. Blood cultures with no growth. Urine antigens negative for s. pneumo and legionella. Noted to have tachycardia and intermittent tachypnea. Afebrile and leukocytosis significantly elevated yesterday but is trending down today. 2. Acute on chronic hypoxic respiratory failure. Baseline O2 is 2L via NC, currently on 4 L via NC 3. Leukocytosis. Noted to have elevation in WBC count yesterday. Differential Dx : New infection, C-diff, worsening infection, or reaction to steroids. Denies ABD pain or diarrhea, low suspicion for C-diff. Denies urinary symptoms. Was started on steroids 01/05/20, ? secondary to steroids. 4. History of right lung cancer, S/P right pneumonectomy. Plan: Continue Meropenum, was extended by Hospital Medicine Provider over the weekend , day 07/10. Continue to follow WBC.
[2020-01-07] MEDS: Polyethylene Glycol 3350* 17 GM PACKET PO SCH (10:21)
--- NOTE | 2020-01-07 14:42 | PN ---
Subjective Date of Service: 01/07/20 Interval History: HD 14 on 01/06 74M PMH lung Ca s/p R lobectomy, COPD and chronic hypoxic resp failure on 2-3L NC at baseline, sp AVR, CAD s/p CABG, hypothyroid, with recent outside hospital cardiac arrest and ROSC with resultant HFpEF (?) EF 75%-poor study on prior to representing for hypoxic/hypercarbic resp failure 12/02 to pseudomonas PNA and COPD exacerbation requiring BiPAP and ICU. Transferred to floor on 01/02, stay c/b tenuous resp status. Overnight; DID not wear BiPAP as he felt uncomfortable and stated that mask was leaky; desat to 80's; cam back to normal after breathing treatment Patient seen and examined at bedside. Patient states he had rough night. he says that he is still coughing and has some difficulty in breathing. He denies chest pain and palpitation and dizziness. Objective Active Medications: Acetylcysteine (Mucomyst Inhalation Marilynn*) 400 mg INH [id number] AWAKE [facility] Stop: 01/07/20 19:01 Last Admin: 01/07/20 13:51 Dose: 400 mg Albuterol/Ipratropium (Duoneb (Albuterol 2.5 Mg/Ipratropium 0.5 Mg)) 1 neb INH [id number] AWAKE [facility] Last Admin: 01/07/20 13:51 Dose: 1 neb Aspirin (Aspirin 81 Mg Chew Tab*) 81 mg PO DAILY [facility] Last Admin: 01/07/20 10:06 Dose: 81 mg Atorvastatin Calcium (Lipitor*) 40 mg PO QPM [facility] Last Admin: 01/06/20 17:53 Dose: 40 mg Bisacodyl (Dulcolax Supp*) 10 mg [place] DAILY PRN PRN Reason: CONSTIPATION Cetirizine HCl (Zyrtec*) 10 mg PO DAILY [facility] Last Admin: 01/07/20 10:06 Dose: 10 mg Furosemide (Lasix Iv*) 20 mg IV DAILY [facility] Last Admin: 01/07/20 10:06 Dose: 20 mg Heparin Sodium (Porcine) (Heparin Vial(*)) 5,000 units SUBCUT Q8HR [facility] Last Admin: 01/07/20 06:02 Dose: 5,000 units Meropenem (Merrem 1 Gm Premix(*)) 1 gm in 50 mls @ 100 mls/hr IV Q8H [facility]; Protocol Stop: 01/08/20 16:59 Last Admin: 01/07/20 10:07 Dose: 100 mls/hr Levothyroxine Sodium (Synthroid Tab*) 112 mcg PO 0600 [facility] Last Admin: 01/07/20 06:02 Dose: 112 mcg Magnesium Oxide (Magox 400 Tab*) 400 mg PO BID [facility] Last Admin: 01/07/20 10:06 Dose: 400 mg Methylprednisolone Sodium Succinate (Solu-Medrol 40 Mg) 20 mg IV Q8H [facility] Last Admin: 01/07/20 12:09 Dose: 20 mg Metoprolol Tartrate (Lopressor Iv*) 5 mg IV Q6H PRN PRN Reason: TACHYCARDIA Last Admin: 01/01/20 19:30 Dose: 5 mg Metoprolol Tartrate (Lopressor Tab*) 25 mg PO BID [facility] Last Admin: 01/07/20 11:07 Dose: 25 mg Mometasone Furoate/Formoterol Fumar (Dulera 200/5 Mdi*) 2 puff INH BID [facility] Last Admin: 01/07/20 08:06 Dose: 2 puff Polyethylene Glycol/Electrolytes (Miralax (17 Gm Dose Oliver)) 17 gm PO DAILY [facility] Last Admin: 01/07/20 10:21 Dose: Not Given Senna (Senokot 8.6 Mg Tab*) 1 tab PO BEDTIME [facility] Last Admin: 01/06/20 20:21 Dose: Not Given Tiotropium [place] (Spiriva Respimat 2.5 Mcg) 2 puff INH DAILY [facility] Last Admin: 01/07/20 08:06 Dose: 2 puff Vital Signs - 8 hr 01/07/20 01/07/20 01/07/20 07:45 08:00 08:08 Temperature 98.3 F Pulse Rate 116 115 Respiratory 22 18 18 Rate Blood Pressure 108/65 (mmHg) O2 Sat by Pulse 94 98 Oximetry 01/07/20 01/07/20 01/07/20 09:40 11:04 11:20 Temperature 97.4 F Pulse Rate 133 135 137 Respiratory 20 Rate Blood Pressure 80/58 100/60 (mmHg) O2 Sat by Pulse 97 99 Oximetry 01/07/20 13:55 Temperature Pulse Rate 110 Respiratory 18 Rate Blood Pressure (mmHg) O2 Sat by Pulse 95 Oximetry Oxygen Devices in Use Now: Nasal Cannula Exam: Oxygen Devices in Use Now: Nasal Cannula Appearance: Pleasant man in NAD, mildly SOB with conversation and after coughing Eyes: No Scleral Icterus, PERRLA Ears/Nose/Mouth/Throat: NL Teeth, Lips, Gums, Mucous Membranes Moist Neck: NL Appearance and Movements; NL JVP Respiratory: Symmetrical Chest Expansion - - Diffuse rhonchi, blt crackles, no wheezing Cardiovascular: NL Sounds; No Murmurs; No JVD, RRR Abdominal: NL Sounds; No Tenderness; No Distention, No Hepatosplenomegaly Lymphatic: No Cervical Adenopathy Extremities: pitting Edema Skin: No Rash or Ulcers Neurological: Alert and Oriented x 3 - Nutrition: Malnutrition Diagnosis/Plan Malnutrition Assessment by Registered Dietitian: Malnutrition Assessment Clinical Characteristics Chronic,Severe Malnutrition Assessment: - wt loss from 185# to 145# (21.6%) in past six Criteria months - severe temporal and clavicular wasting Malnutrition Assessment: - regular unrestricted diet Interventions - pureed textures, honey-thick liquids; follow - follow HATCHERY ATTENDANT progress notes for ability to upgrade (or need to downgrade) - Ensure pudding @ B-L-D; extra sauce and LS gravy for meats - follow labs, weights Malnutrition Assessment: Goals 1. adequate intake to support hydration and lean body mass without add'l wt loss 2. ideally, gradual 20# repletion of wt and lean body mass 3. maintain serum electrolytes WNL; no s/sx refeeding syndrome 4. regulation of bowel pattern; no c/o constipation (or diarrhea) Result Diagrams: 01/07/20 05:52 01/07/20 05:52 Additional Lab and Data: Laboratory Tests 01/03/20 01/03/20 06:04 06:04 Calcium 9.2 Ionized Calcium 1.15 L Total Bilirubin 1.70 H Microbiology and Other Data: Microbiology 12/28/19 12:08 Aerobic Blood Culture - Final Blood Venous No Growth Day 5 Anaerobic Blood Culture - Final No Growth Day 5 12/28/19 12:10 Aerobic Blood Culture - Final Blood Venous No Growth Day 5 Anaerobic Blood Culture - Final No Growth Day 5 12/28/19 11:50 Gram Stain - Final Sputum Expectorated Sputum Culture - Final Pseudomonas Aeruginosa Normal Margaux 12/26/19 10:30 Nasal Screen MRSA (PCR) - Final Nasal Mrsa Not Detected 12/26/19 10:55 Legionella Urinary Antigen - Final Urine Negative Legionella Antigen Streptococcus pneumoniae Ag Screen - Final Negative S. pneumo Antigen Diagnostic Imaging: Echo 12/26 Conclusions Summary: - Procedure narrative: The study was technically limited due to poor acoustic window availability, heart shifted to the right. - Left ventricle: The cavity size is moderately reduced. Wall thickness is normal. Systolic function is vigorous. The estimated ejection fraction is 70-75%. - Right ventricle: Systolic function is low normal. - Tricuspid valve: There is trace to mild regurgitation. - Pulmonary arteries: Systolic pressure is within the normal range. The peak pressure during systole by Doppler is 30.0 mm Hg. CTA IMPRESSION: 1. No CT of evidence of pulmonary embolism in the remaining left pulmonary arteries. 2. There is a small left-sided pleural effusion with adjacent compressive atelectasis of the left lower lobe. 3. Extensive chronic, degenerative and postsurgical changes. 12/29 No DVT Assess/Plan/Problems-Billing Assessment: 74M PMH lung Ca s/p R lobectomy, COPD and chronic hypoxic resp failure on 2-3L NC at baseline, sp AVR, CAD s/p CABG, hypothyroid, with recent outside hospital cardiac arrest and ROSC with resultant HFpEF (?) EF 75%-poor study on prior to representing for hypoxic/hypercarbic resp failure 12/02 to pseudomonas PNA and COPD exacerbation requiring BiPAP and ICU. Transferred to floor on 01/02, stay c/b tenuous resp status. - Patient Problems (1) Acute and chronic respiratory failure with hypercapnia Current Visit: Yes Status: Acute Priority: High Code(s): J96.22 - ACUTE AND CHRONIC RESPIRATORY FAILURE WITH HYPERCAPNIA SNOMED Code(s): 9524177064958 Comment: - Chronic failure likely from COPD and heart failure --this acute episode likely multifactorial-PNA, COPD exacerbation in setting of poor reserve, ? volume overload - QHS BIPAP, Metanebs, Steroids, Lasix - Was on Pred 40mg, changed to Methylpred IV Q 8 on 01/04, Day 14 of steroids, continue LAMA, LABA neb tx, appreciate pulm - Meropenem Day 06/09 (extended) on 01/05 --give lasix judiciously as Bp can handle --will add acetazolamide as retaining Co2. (2) Pneumonia due to Pseudomonas Current Visit: Yes Status: Acute Comment: - Sputum- pseudomonas sensitive to meropenem - Will need 10 days meropenem, changed order in computer, will finish 01/07 (3) CAD (coronary artery disease) Current Visit: Yes Status: Acute Code(s): I25.10 - ATHSCL HEART DISEASE OF [place] CORONARY ARTERY W/O ANG PCTRS SNOMED Code(s): 57571454 Comment: - On BB, asa, statin - Recent outside arrest, keep K>4, Mag>2 - No RWMA on echo, though poor study with such sig sinus tachycardia (4) Sinus tachycardia Current Visit: Yes Status: Acute Code(s): R00.0 - TACHYCARDIA, UNSPECIFIED SNOMED Code(s): 65418347 Comment: - Suspect reactive, no e/o arrythmia, monitor on tele - Remains on Metoprolol 25 BID, PRN IV >130 sustained, attempted to increase to 50mg, though did not tolerate (5) COPD (chronic obstructive pulmonary disease) Current Visit: Yes Status: Acute Code(s): J44.9 - CHRONIC OBSTRUCTIVE PULMONARY DISEASE, UNSPECIFIED SNOMED Code(s): 75726397 Comment: - On home 2-3L NC - Appreciate pulmonary consultation, added back high dose steroids, on metanebs , and mucolytics on 01/06 -flutter valve (6) Hypothyroid Current Visit: Yes Status: Acute Code(s): E03.9 - HYPOTHYROIDISM, UNSPECIFIED SNOMED Code(s): 34890491 Comment: - Continue levothryoxine (7) Normocytic anemia Current Visit: Yes Status: Acute Code(s): D64.9 - ANEMIA, UNSPECIFIED SNOMED Code(s): 302601267 Comment: - Stable, - Iron and ferritin normal (8) DVT prophylaxis Current Visit: Yes Status: Acute Priority: Low Code(s): Z29.9 - ENCOUNTER FOR PROPHYLACTIC MEASURES, UNSPECIFIED SNOMED Code(s): 012917769 Comment: - SC heparin (9) Full code status Current Visit: Yes Status: Acute Code(s): Z78.9 - OTHER SPECIFIED HEALTH STATUS SNOMED Code(s): 416908523 Status and Disposition: Inpatient Lines: PIV Tubes: no gerardo Diet: Regular, pureed and nectar thick Case Mgmt: May need rehab, will order PT/OT to start 01/06 Attending: Guillermina Craig Attestation Attending/Supervising Physician Comment: Agree with resident findings, note, exam, assessment and plan. 74M PMH lung Ca s/p R lobectomy, COPD and chronic hypoxic resp failure on 2-3L NC at baseline, sp AVR, CAD s/p CABG, hypothyroid, with recent outside hospital cardiac arrest and ROSC with resultant HFpEF (?) EF 75%-poor study on prior to representing for hypoxic/hypercarbic resp failure 12/02 to pseudomonas PNA and COPD exacerbation requiring BiPAP and ICU. Today, added Mucomyst, slow recovery. Does better with lasix for his hypoxia though limited by soft BP as to how aggressive we can diurese him. Spoke with pt today about goals of care in general given his most recent decline in health after his cardiac arrest. Discussed his code status and if he would want the same interventions he had during arrest again. At this point he says he does but wants to talk about it with his family, which is very reasonable. Otherwise watchful waiting and aggressive maximal pulm care as we are offering. Appreciate pulm and ID
--- NOTE | 2020-01-07 15:01 | PN ---
Progress Note - Progress Note Date of Service: 01/07/20 - Pulm f/u note Note: Pt seen and examined at bedside. Reports still having SOB, has not been able to expectorate much phleghm. Active Medications Generic Name Dose Route Start Last Admin Trade Name Freq PRN Reason Stop Dose Admin Acetazolamide 250 mg 01/07/20 21:00 Diamox Tab* PO 01/08/20 10:00 BID JARED Acetylcysteine 400 mg 01/07/20 09:00 01/07/20 13:51 Mucomyst Inhalation Marilynn* INH 01/07/20 19:01 400 mg [id number] AWAKE JARED Administration Albuterol/Ipratropium 1 neb 01/06/20 13:00 01/07/20 13:51 Duoneb (Albuterol 2.5 Mg/Ipratropium 0.5 Mg) INH 1 neb [id number] AWAKE JARED Administration Aspirin 81 mg 12/28/19 09:00 01/07/20 10:06 Aspirin 81 Mg Chew Tab* PO 81 mg DAILY JARED Administration Atorvastatin Calcium 40 mg 12/27/19 18:00 01/06/20 17:53 Lipitor* PO 40 mg QPM JARED Administration Bisacodyl 10 mg 12/26/19 10:55 Dulcolax Supp* [place] DAILY PRN CONSTIPATION Cetirizine HCl 10 mg 12/27/19 09:00 01/07/20 10:06 Zyrtec* PO 10 mg DAILY JARED Administration Furosemide 20 mg 01/07/20 10:00 01/07/20 10:06 Lasix Iv* IV 20 mg DAILY JARED Administration Heparin Sodium (Porcine) 5,000 units 12/26/19 14:00 01/07/20 14:51 Heparin Vial(*) SUBCUT 5,000 units Q8HR JARED Administration Meropenem 1 gm in 50 mls @ 100 mls/hr 01/06/20 17:00 01/07/20 10:07 Merrem 1 Gm Premix(*) IV 01/08/20 16:59 100 mls/hr Q8H JARED Administration Protocol Levothyroxine Sodium 112 mcg 12/27/19 09:00 01/07/20 06:02 Synthroid Tab* PO 112 mcg 0600 JARED Administration Magnesium Oxide 400 mg 01/03/20 21:00 01/07/20 10:06 Magox 400 Tab* PO 400 mg BID JARED Administration Methylprednisolone Sodium Succinate 20 mg 01/05/20 12:00 01/07/20 12:09 Solu-Medrol 40 Mg IV 20 mg Q8H JARED Administration Metoprolol Tartrate 5 mg 12/26/19 17:15 01/01/20 19:30 Lopressor Iv* IV 5 mg Q6H PRN Administration TACHYCARDIA Metoprolol Tartrate 25 mg 01/06/20 09:00 01/07/20 11:07 Lopressor Tab* PO 25 mg BID JARED Administration Mometasone Furoate/Formoterol Fumar 2 puff 12/27/19 21:00 01/07/20 08:06 Dulera 200/5 Mdi* INH 2 puff BID JARED Administration Polyethylene Glycol/Electrolytes 17 gm 12/27/19 09:00 01/07/20 10:21 Miralax (17 Gm Dose Oliver) PO Not Given DAILY JARED Senna 1 tab 12/26/19 21:00 01/06/20 20:21 Senokot 8.6 Mg Tab* PO Not Given BEDTIME JARED Tiotropium [place] 2 puff 12/27/19 09:00 01/07/20 08:06 Spiriva Respimat 2.5 Mcg INH 2 puff DAILY JARED Administration Vital Signs Temp Pulse Resp BP Pulse Ox 97.4 F 110 18 100/60 95 01/07/20 11:20 01/07/20 13:55 01/07/20 13:55 01/07/20 11:04 01/07/20 13:55 O/E: Pt in NAD HEENT: PERRLA Lungs: Diminished air entry, wheeze improved CVS: S1, S2+ Abd: Soft, BS+ Ext: Normal ROM Neuro: NO focal deficits Laboratory Results - last 24 hr 01/07/20 01/07/20 01/07/20 04:21 05:52 05:52 WBC 29.2 H RBC 3.36 L Hgb 9.8 L Hct 30 L MCV 90 MCH 29 MCHC 33 RDW 15 Plt Count 269 MPV 8.9 Neut % (Auto) 95.7 Lymph % (Auto) 0.9 Cole % (Auto) 3.2 Eos % (Auto) 0.0 Baso % (Auto) 0.2 Absolute Neuts (auto) 28.0 H Absolute Lymphs (auto) 0.3 L Absolute Monos (auto) 0.9 H Absolute Eos (auto) 0.0 Absolute Basos (auto) 0.1 Absolute Nucleated RBC 0.0 Nucleated RBC % 0.0 ABG pH 7.41 ABG pCO2 79 H* ABG pO2 167 H ABG HCO3 41.1 H* ABG O2 Saturation 100.0 H ABG Base Excess 20.7 H Sodium 139 Potassium 4.4 Chloride 91 L Carbon Dioxide 45 H* Anion Gap 3 BUN 20 Creatinine 0.67 Est GFR ( Amer) 140.7 Est GFR (Non-Af Amer) 116.3 BUN/Creatinine Ratio 29.9 H Glucose 142 H Calcium 9.1 Magnesium 2.4 Iron 66 Ferritin 202.0 I/R: 74M PMH lung Ca s/p R lobectomy, COPD and chronic hypoxic resp failure on 2-3L NC at baseline, sp AVR, CAD s/p CABG, hypothyroid, with recent outside hospital cardiac arrest and ROSC with resultant HFpEF (?) EF 75%-poor study on prior to representing for hypoxic/hypercarbic resp failure 12/02 to pseudomonas PNA and COPD exacerbation requiring BiPAP and ICU. Pt reports no improvement in breathing Wheezing is improved c/w mucomyst, able to expectorate some phleghm c/w metanebs c/w abx c/w flutter device OOBto chair as tolerated
[2020-01-07] MEDS: Atorvastatin* 40 MG TAB PO SCH (17:05)
[2020-01-07] MEDS: Senna TAB 8.6 mg* TAB PO SCH (20:02)
[2020-01-07] MEDS: acetaZOLAMIDE TAB* 250 MG PO SCH (20:14)
[2020-01-08] MEDS: Albuterol/Ipratropium NEB.SOL* Albuterol 2.5 MG/Ipratropium 0.5 MG 3 ML INH SCH ×4 (00:25→19:34)
[2020-01-08] MEDS: Meropenem 1 GM PREMIX(*) 1 GM/50 ML BAG IV SCH ×2 (01:07→08:47)
[2020-01-08] MEDS: methylPREDNISolone SOD 40 MG* 1 ML VIAL IV SCH (04:55)
[2020-01-08] MEDS: Heparin VIAL(*) 5000 UNITS/ML VIAL (FIVE THOUSAND) SUBCUT SCH ×3 (04:55→20:38)
[2020-01-08] MEDS: Levothyroxine TAB* 112 MCG TAB PO SCH (04:55)
[2020-01-08 05:54] LABS: Hematocrit 30 % (42-52); Hemoglobin 9.8 g/dL (14.0-18.0); Mean Corpuscular HGB Conc 33 g/dL (31-36); Mean Corpuscular Hemoglobin 30 pg (27-31); Mean Corpuscular Volume 91 fL (80-94); Mean Platelet Volume 8.9 fL (7.4-10.4); Platelet Count 252 10^3/uL (150-450); Red Cell Distribution Width 16 % (10-15); White Blood Count 44.4 10^3/uL (3.5-10.8)
[2020-01-08 06:11] LABS: BUN/Creatinine Ratio 29.7 (8-20); Calcium 9.2 mg/dL (8.6-10.3); EGFR African American 125.5 (>60); EGFR Non-African American 103.7 (>60); Potassium 4.8 mmol/L (3.5-5.0)
[2020-01-08 07:45] LABS: ABS Basophils 0.2 10^3/ul (0-0.2); ABS Lymphocytes 0.3 10^3/ul (1.0-4.8); ABS Monocytes 1.3 10^3/ul (0-0.8); ABS Neutrophils 42.7 10^3/ul (1.5-7.7); Lymphocyte % 0.7 %
[2020-01-08] MEDS: Mometasone/Formoter 200/5 MDI INH SCH ×2 (08:03→19:33)
[2020-01-08] MEDS: SPIRIVA Respimat* (tiotropium) 2.5 mcg/inh Inhaler INH SCH (08:03)
--- NOTE | 2020-01-08 08:24 | PN ---
Progress Note - Progress Note Date of Service: 01/08/20 SOAP: Subjective: CC: PNA HPI: Mr. Navarrete is a 74 yo male with PMH significant for right lung cancer s/p right pneumonectomy, COPD, hx cardiac arrest, CAD with CABG and stent placement ; who presented to the emergency room with complaints of shortness of breath and acute on chronic hypoxic respiratory failure. Denies fever, chills, ABD pain , nausea, vomiting, diarrhea, joint pain, back or neck pain, or urinary symptoms. Shortness of breath is improved today compared to yesterday. Objective: Vital Signs - 8 hr 01/08/20 01/08/20 02:59 08:00 Temperature 98.0 F Pulse Rate 108 123 Respiratory 16 18 Rate Blood Pressure 100/64 (mmHg) O2 Sat by Pulse 99 100 Oximetry Physical Exam: General: NAD, sitting up in bed Neurological: Alert and Oriented HEENT: Moist MM Cardiovascular: Heart rate regular Respiratory: Lung sounds clear, diminished Abdominal: Bowel sounds present; ABD soft, non tender and non distended MSK: No swollen joints or crepitus in bilateral knees, ankles, hips, wrists, elbows, or shoulders, all joints with full ROM. No tenderness with palpation of the neck, back or spine Skin: No rash Laboratory Results - last 24 hr 01/08/20 01/08/20 05:40 05:40 WBC 44.4 H RBC 3.30 L Hgb 9.8 L Hct 30 L MCV 91 MCH 30 MCHC 33 RDW 16 H Plt Count 252 MPV 8.9 Neut % (Auto) 96.2 Lymph % (Auto) 0.7 [place] % (Auto) 2.8 Eos % (Auto) 0.0 Baso % (Auto) 0.3 Absolute Neuts (auto) 42.7 H Absolute Lymphs (auto) 0.3 L Absolute Monos (auto) 1.3 H Absolute Eos (auto) 0.0 Absolute Basos (auto) 0.2 Absolute Nucleated RBC 0.0 Nucleated RBC % 0.0 Sodium 140 Potassium 4.8 Chloride 94 L Carbon Dioxide 45 H* Anion Gap 1 L BUN 22 Creatinine 0.74 Est GFR ( Amer) 125.5 Est GFR (Non-Af Amer) 103.7 BUN/Creatinine Ratio 29.7 H Glucose 127 H Calcium 9.2 Microbiology 12/28/19 12:08 Aerobic Blood Culture - Final Blood Venous No Growth Day 5 Anaerobic Blood Culture - Final No Growth Day 5 12/28/19 12:10 Aerobic Blood Culture - Final Blood Venous No Growth Day 5 Anaerobic Blood Culture - Final No Growth Day 5 12/28/19 11:50 Gram Stain - Final Sputum Expectorated Sputum Culture - Final Pseudomonas Aeruginosa Normal Margaux 12/26/19 10:30 Nasal Screen MRSA (PCR) - Final Nasal Mrsa Not Detected 12/26/19 10:55 Legionella Urinary Antigen - Final Urine Negative Legionella Antigen Streptococcus pneumoniae Ag Screen - Final Negative S. pneumo Antigen Assessment: 1. Pseudomonas PNA. Sputum culture with MDR pseudomonas. Blood cultures with no growth. Urine antigens negative for s. pneumo and legionella. Noted to have tachycardia and intermittent tachypnea. Afebrile and leukocytosis significantly elevated yesterday but is trending down today. 2. Acute on chronic hypoxic respiratory failure. Baseline O2 is 2L via NC, currently on 5 L via NC 3. Leukocytosis. Noted to have elevation in WBC count yesterday. Differential Dx : New infection, C-diff, worsening infection, or reaction to steroids. Denies ABD pain or diarrhea, low suspicion for C-diff. Denies urinary symptoms. No other signs of infection. Was started on steroids 01/05/20, suspect secondary to steroids. 4. History of right lung cancer, S/P right pneumonectomy. Plan: Continue Meropenum, was extended by Hospital Medicine Provider over the weekend , day 08/09.
[2020-01-08] MEDS: Cetirizine* 10 MG TAB PO SCH (08:43)
[2020-01-08] MEDS: Aspirin 81 mg CHEW TAB* 81 MG TAB.CHEW PO SCH (08:43)
[2020-01-08] MEDS: acetaZOLAMIDE TAB* 250 MG PO SCH (08:43)
[2020-01-08] MEDS: Magnesium Oxide TAB* 400 MG PO SCH ×2 (08:43→20:38)
[2020-01-08] MEDS: Metoprolol Tartrate TAB* 50 mg PO SCH ×2 (08:44→20:39)
[2020-01-08] MEDS: Polyethylene Glycol 3350* 17 GM PACKET PO SCH (08:46)
[2020-01-08] MEDS: Furosemide IV* 10 MG/ML 2 ML VIAL (20 MG) IV SCH (08:46)
--- NOTE | 2020-01-08 11:57 | PN ---
Subjective Date of Service: 01/08/20 Interval History: HD 15 on 01/07 74M PMH lung Ca s/p R lobectomy, COPD and chronic hypoxic resp failure on 2-3L NC at baseline, sp AVR, CAD s/p CABG, hypothyroid, with recent outside hospital cardiac arrest and ROSC with resultant HFpEF (?) EF 75%-poor study on prior to representing for hypoxic/hypercarbic resp failure 12/02 to pseudomonas PNA and COPD exacerbation requiring BiPAP and ICU. Transferred to floor on 01/02, stay c/b tenuous resp status. Overnight: No acute overnight events; used Bipap Patient seen and examined at bedside. patient is feeling better today. No on 4 L of oxygen; saturating well. patient is encouraged and motivated today. Has cough though. WBC increasing. . Objective Active Medications: Acetylcysteine (Mucomyst Inhalation Marilynn*) 400 mg INH [id number] AWAKE [facility] Albuterol/Ipratropium (Duoneb (Albuterol 2.5 Mg/Ipratropium 0.5 Mg)) 1 neb INH [id number] AWAKE [facility] Last Admin: 01/08/20 08:03 Dose: 1 neb Aspirin (Aspirin 81 Mg Chew Tab*) 81 mg PO DAILY [facility] Last Admin: 01/08/20 08:43 Dose: 81 mg Atorvastatin Calcium (Lipitor*) 40 mg PO QPM [facility] Last Admin: 01/07/20 17:05 Dose: 40 mg Bisacodyl (Dulcolax Supp*) 10 mg NC DAILY PRN PRN Reason: CONSTIPATION Cetirizine HCl (Zyrtec*) 10 mg PO DAILY [facility] Last Admin: 01/08/20 08:43 Dose: 10 mg Furosemide (Lasix Iv*) 20 mg IV DAILY [facility] Last Admin: 01/08/20 08:46 Dose: 20 mg Heparin Sodium (Porcine) (Heparin Vial(*)) 5,000 units SUBCUT Q8HR [facility] Last Admin: 01/08/20 04:55 Dose: 5,000 units Meropenem (Merrem 1 Gm Premix(*)) 1 gm in 50 mls @ 100 mls/hr IV Q8H [facility]; Protocol Stop: 01/08/20 16:59 Last Admin: 01/08/20 08:47 Dose: 100 mls/hr Levothyroxine Sodium (Synthroid Tab*) 112 mcg PO 0600 [facility] Last Admin: 01/08/20 04:55 Dose: 112 mcg Magnesium Oxide (Magox 400 Tab*) 400 mg PO BID [facility] Last Admin: 01/08/20 08:43 Dose: 400 mg Methylprednisolone Sodium Succinate (Solu-Medrol 40 Mg) 20 mg IV BID [facility] Metoprolol Tartrate (Lopressor Iv*) 5 mg IV Q6H PRN PRN Reason: TACHYCARDIA Last Admin: 01/01/20 19:30 Dose: 5 mg Metoprolol Tartrate (Lopressor Tab*) 25 mg PO BID [facility] Last Admin: 01/08/20 08:44 Dose: 25 mg Mometasone Furoate/Formoterol Fumar (Dulera 200/5 Mdi*) 2 puff INH BID [facility] Last Admin: 01/08/20 08:03 Dose: 2 puff Polyethylene Glycol/Electrolytes (Miralax (17 Gm Dose Oliver)) 17 gm PO DAILY [facility] Last Admin: 01/08/20 08:46 Dose: Not Given Senna (Senokot 8.6 Mg Tab*) 1 tab PO BEDTIME [facility] Last Admin: 01/07/20 20:02 Dose: Not Given Tiotropium [place] (Spiriva Respimat 2.5 Mcg) 2 puff INH DAILY [facility] Last Admin: 01/08/20 08:03 Dose: 2 puff Vital Signs - 8 hr 01/08/20 08:00 Pulse Rate 123 Respiratory 18 Rate O2 Sat by Pulse 100 Oximetry Oxygen Devices in Use Now: Nasal Cannula Exam: Oxygen Devices in Use Now: Nasal Cannula Appearance: Pleasant man in NAD, mildly SOB with conversation and after coughing Eyes: No Scleral Icterus, PERRLA Ears/Nose/Mouth/Throat: NL Teeth, Lips, Gums, Mucous Membranes Moist Neck: NL Appearance and Movements; NL JVP Respiratory: Symmetrical Chest Expansion - - Diffuse rhonchi, blt crackles, no wheezing Cardiovascular: NL Sounds; No Murmurs; No JVD, RRR Abdominal: NL Sounds; No Tenderness; No Distention, No Hepatosplenomegaly Lymphatic: No Cervical Adenopathy Extremities: pitting Edema Skin: No Rash or Ulcers Neurological: Alert and Oriented x 3 - Nutrition: Malnutrition Diagnosis/Plan Malnutrition Assessment by Registered Dietitian: Malnutrition Assessment Clinical Characteristics Chronic,Severe Malnutrition Assessment: - wt loss from 185# to 145# (21.6%) in past six Criteria months - severe temporal and clavicular wasting Malnutrition Assessment: - regular unrestricted diet Interventions - pureed textures, honey-thick liquids; follow - follow [employer] progress notes for ability to upgrade (or need to downgrade) - Ensure pudding @ B-L-D; extra sauce and LS gravy for meats - follow labs, weights Malnutrition Assessment: Goals 1. adequate intake to support hydration and lean body mass without add'l wt loss 2. ideally, gradual 20# repletion of wt and lean body mass 3. maintain serum electrolytes WNL; no s/sx refeeding syndrome 4. regulation of bowel pattern; no c/o constipation (or diarrhea) Result Diagrams: 01/08/20 05:40 01/08/20 05:40 Additional Lab and Data: Laboratory Tests 01/03/20 01/03/20 06:04 06:04 Calcium 9.2 Ionized Calcium 1.15 L Total Bilirubin 1.70 H Microbiology and Other Data: Microbiology 12/28/19 12:08 Aerobic Blood Culture - Final Blood Venous No Growth Day 5 Anaerobic Blood Culture - Final No Growth Day 5 12/28/19 12:10 Aerobic Blood Culture - Final Blood Venous No Growth Day 5 Anaerobic Blood Culture - Final No Growth Day 5 12/28/19 11:50 Gram Stain - Final Sputum Expectorated Sputum Culture - Final Pseudomonas Aeruginosa Normal Margaux 12/26/19 10:30 Nasal Screen MRSA (PCR) - Final Nasal Mrsa Not Detected 12/26/19 10:55 Legionella Urinary Antigen - Final Urine Negative Legionella Antigen Streptococcus pneumoniae Ag Screen - Final Negative S. pneumo Antigen Diagnostic Imaging: Echo 12/26 Conclusions Summary: - Procedure narrative: The study was technically limited due to poor acoustic window availability, heart shifted to the right. - Left ventricle: The cavity size is moderately reduced. Wall thickness is normal. Systolic function is vigorous. The estimated ejection fraction is 70-75%. - Right ventricle: Systolic function is low normal. - Tricuspid valve: There is trace to mild regurgitation. - Pulmonary arteries: Systolic pressure is within the normal range. The peak pressure during systole by Doppler is 30.0 mm Hg. CTA IMPRESSION: 1. No CT of evidence of pulmonary embolism in the remaining left pulmonary arteries. 2. There is a small left-sided pleural effusion with adjacent compressive atelectasis of the left lower lobe. 3. Extensive chronic, degenerative and postsurgical changes. 12/29 No DVT Assess/Plan/Problems-Billing Assessment: 74M PMH lung Ca s/p R lobectomy, COPD and chronic hypoxic resp failure on 2-3L NC at baseline, sp AVR, CAD s/p CABG, hypothyroid, with recent outside hospital cardiac arrest and ROSC with resultant HFpEF (?) EF 75%-poor study on prior to representing for hypoxic/hypercarbic resp failure 12/02 to pseudomonas PNA and COPD exacerbation requiring BiPAP and ICU. Transferred to floor on 01/02, stay c/b tenuous resp status and leukocytosis - Patient Problems (1) Acute and chronic respiratory failure with hypercapnia Current Visit: Yes Status: Acute Priority: High Code(s): J96.22 - ACUTE AND CHRONIC RESPIRATORY FAILURE WITH HYPERCAPNIA SNOMED Code(s): 0608587843091 Comment: - Chronic failure likely from COPD and heart failure - this acute episode likely multifactorial-PNA, COPD exacerbation in setting of poor reserve, ? volume overload - QHS BIPAP, Metanebs, Steroids, Lasix - Was on Pred 40mg, changed to Methylpred IV Q 8 on 01/04, lower to BID on 01/07, Day 15 of steroids, continue LAMA, LABA neb tx, appreciate pulm -Meropenem last day today; complete on 01/07 -Lasix 20mg IV daily, judiciously as BP can handle -Continue mucolytic inhalers (2) Pneumonia due to Pseudomonas Current Visit: Yes Status: Acute Comment: - Sputum- pseudomonas sensitive to meropenem - Will need 10 days meropenem, changed order in computer, will finish 01/07 evening - Increasing WBC count; secondary to steroids; no other signs of infection and patient does not look septic. - Decreased steroids to BID; change to PO tomorrow (3) CAD (coronary artery disease) Current Visit: Yes Status: Acute Code(s): I25.10 - ATHSCL HEART DISEASE OF [place] CORONARY ARTERY W/O ANG PCTRS SNOMED Code(s): 81780476 Comment: - On BB, asa, statin - Recent outside arrest, keep K>4, Mag>2 - No RWMA on echo, though poor study with such sig sinus tachycardia (4) Sinus tachycardia Current Visit: Yes Status: Acute Code(s): R00.0 - TACHYCARDIA, UNSPECIFIED SNOMED Code(s): 58880201 Comment: - Suspect reactive, no e/o arrythmia, monitor on tele - Remains on Metoprolol 25 BID, PRN IV >130 sustained, attempted to increase to 50mg, though did not tolerate (5) COPD (chronic obstructive pulmonary disease) Current Visit: Yes Status: Acute Code(s): J44.9 - CHRONIC OBSTRUCTIVE PULMONARY DISEASE, UNSPECIFIED SNOMED Code(s): 13882435 Comment: - On home 2-3L NC - Appreciate pulmonary consultation, on steroids, on metanebs, and mucolytics on 01/06 - flutter valve - steroids dose decreased to BID 01/07 (6) Hypothyroid Current Visit: Yes Status: Acute Code(s): E03.9 - HYPOTHYROIDISM, UNSPECIFIED SNOMED Code(s): 96587549 Comment: - Continue levothryoxine (7) Normocytic anemia Current Visit: Yes Status: Acute Code(s): D64.9 - ANEMIA, UNSPECIFIED SNOMED Code(s): 603010191 Comment: - Stable, - Iron and ferritin normal (8) DVT prophylaxis Current Visit: Yes Status: Acute Priority: Low Code(s): Z29.9 - ENCOUNTER FOR PROPHYLACTIC MEASURES, UNSPECIFIED SNOMED Code(s): 379827322 Comment: - SC heparin (9) Full code status Current Visit: Yes Status: Acute Code(s): Z78.9 - OTHER SPECIFIED HEALTH STATUS SNOMED Code(s): 513975476 Status and Disposition: Inpatient Lines: PIV Tubes: no gerardo Diet: Regular, pureed and nectar thick Case Mgmt: May need rehab Attending: Guillermina Craig Attestation Attending/Supervising Physician Comment: Agree with resident findings, note, exam, assessment and plan. 74M PMH lung Ca s/p R lobectomy, COPD and chronic hypoxic resp failure on 2-3L NC at baseline, sp AVR, CAD s/p CABG, hypothyroid, with recent outside hospital cardiac arrest and ROSC with resultant HFpEF (?) EF 75%-poor study on prior to representing for hypoxic/hypercarbic resp failure 12/02 to pseudomonas PNA and COPD exacerbation requiring BiPAP and ICU. Today, prominent leukocytosis, thought to be steroid related as pt is acutally improving, slow recovery. Does better with lasix for his hypoxia though limited by soft BP as to how aggressive we can diurese him. Plan today: -Wean steroids -Continue aggressive tx -Had GOC discussion with him on 01/06, still very clear on full code and well educated Otherwise watchful waiting and aggressive maximal pulm care as we are offering. Appreciate pulm and ID
[2020-01-08] MEDS: Acetylcysteine INHALATION SOL* 200 MG/ML NEB.SOLN 10 ML INH SCH ×2 (14:09→19:34)
[2020-01-08] MEDS: Atorvastatin* 40 MG TAB PO SCH (17:55)
--- NOTE | 2020-01-08 18:07 | PN ---
Progress Note - Progress Note Date of Service: 01/08/20 - Pulm f/u note Note: Pt seen and examined at bedside. Reports feeling slightly better. Still having trouble expectorating secretions Active Medications Generic Name Dose Route Start Last Admin Trade Name Freq PRN Reason Stop Dose Admin Acetylcysteine 400 mg 01/08/20 13:00 01/08/20 14:09 Mucomyst Inhalation Marilynn* INH Not Given [id number] AWAKE [facility] Albuterol/Ipratropium 1 neb 01/06/20 13:00 01/08/20 14:09 Duoneb (Albuterol 2.5 Mg/Ipratropium 0.5 Mg) INH Not Given [id number] AWAKE [facility] Aspirin 81 mg 12/28/19 09:00 01/08/20 08:43 Aspirin 81 Mg Chew Tab* PO 81 mg DAILY [facility] Administration Atorvastatin Calcium 40 mg 12/27/19 18:00 01/08/20 17:55 Lipitor* PO 40 mg QPM [facility] Administration Bisacodyl 10 mg 12/26/19 10:55 Dulcolax Supp* DC DAILY PRN CONSTIPATION Cetirizine HCl 10 mg 12/27/19 09:00 01/08/20 08:43 Zyrtec* PO 10 mg DAILY [facility] Administration Furosemide 20 mg 01/07/20 10:00 01/08/20 08:46 Lasix Iv* IV 20 mg DAILY [facility] Administration Heparin Sodium (Porcine) 5,000 units 12/26/19 14:00 01/08/20 15:13 Heparin Vial(*) SUBCUT 5,000 units Q8HR [facility] Administration Levothyroxine Sodium 112 mcg 12/27/19 09:00 01/08/20 04:55 Synthroid Tab* PO 112 mcg 0600 [facility] Administration Magnesium Oxide 400 mg 01/03/20 21:00 01/08/20 08:43 Magox 400 Tab* PO 400 mg BID [facility] Administration Methylprednisolone Sodium Succinate 20 mg 01/08/20 21:00 Solu-Medrol 40 Mg IV BID [facility] Metoprolol Tartrate 5 mg 12/26/19 17:15 01/01/20 19:30 Lopressor Iv* IV 5 mg Q6H PRN Administration TACHYCARDIA Metoprolol Tartrate 25 mg 01/06/20 09:00 01/08/20 08:44 Lopressor Tab* PO 25 mg BID [facility] Administration Mometasone Furoate/Formoterol Fumar 2 puff 12/27/19 21:00 01/08/20 08:03 Dulera 200/5 Mdi* INH 2 puff BID [facility] Administration Polyethylene Glycol/Electrolytes 17 gm 12/27/19 09:00 01/08/20 08:46 Miralax (17 Gm Dose Oliver) PO Not Given DAILY [facility] Senna 1 tab 12/26/19 21:00 01/07/20 20:02 Senokot 8.6 Mg Tab* PO Not Given BEDTIME [facility] Tiotropium [place] 2 puff 12/27/19 09:00 01/08/20 08:03 Spiriva Respimat 2.5 Mcg INH 2 puff DAILY [facility] Administration Vital Signs Temp Pulse Resp BP Pulse Ox 97.5 F 120 20 90/51 100 01/08/20 16:00 01/08/20 16:00 01/08/20 16:00 01/08/20 16:00 01/08/20 16:00 Laboratory Results - last 24 hr 01/08/20 01/08/20 05:40 05:40 WBC 44.4 H RBC 3.30 L Hgb 9.8 L Hct 30 L MCV 91 MCH 30 MCHC 33 RDW 16 H Plt Count 252 MPV 8.9 Neut % (Auto) 96.2 Lymph % (Auto) 0.7 [place] % (Auto) 2.8 Eos % (Auto) 0.0 Baso % (Auto) 0.3 Absolute Neuts (auto) 42.7 H Absolute Lymphs (auto) 0.3 L Absolute Monos (auto) 1.3 H Absolute Eos (auto) 0.0 Absolute Basos (auto) 0.2 Absolute Nucleated RBC 0.0 Nucleated RBC % 0.0 Sodium 140 Potassium 4.8 Chloride 94 L Carbon Dioxide 45 H* Anion Gap 1 L BUN 22 Creatinine 0.74 Est GFR ( Amer) 125.5 Est GFR (Non-Af Amer) 103.7 BUN/Creatinine Ratio 29.7 H Glucose 127 H Calcium 9.2 O/E: Pt in NAD, sitting in chair HEENT: PERRLA, no accessory muscle usage Lungs: Diminished air entry b/l CVS: S1, S2+ Abd: Soft, BS+ Ext: Normal ROM Neuro: NO focal deficits Skin: No rash I/R: 74 y o m with Pseudomonal PNA with hypercapnic and hypoxic reps failure Pt with mild improvement with mucomyst, will continue c/w metanebs c/w steroids and abx Will hold off on bronchoscopy for now c/w BiPAP at night
[2020-01-08] MEDS: Senna TAB 8.6 mg* TAB PO SCH (20:46)
[2020-01-08] MEDS ORDERED: methylPREDNISolone SOD 40 MG* 1 ML VIAL IV SCH (21:00)
[2020-01-09] MEDS: Acetylcysteine INHALATION SOL* 200 MG/ML NEB.SOLN 10 ML INH SCH ×4 (01:13→20:10)
[2020-01-09] MEDS: Albuterol/Ipratropium NEB.SOL* Albuterol 2.5 MG/Ipratropium 0.5 MG 3 ML INH SCH ×6 (01:13→23:15)
[2020-01-09 04:29] LABS: Hematocrit 29 % (42-52); Hemoglobin 9.4 g/dL (14.0-18.0); Mean Corpuscular HGB Conc 33 g/dL (31-36); Mean Corpuscular Hemoglobin 30 pg (27-31); Mean Corpuscular Volume 90 fL (80-94); Mean Platelet Volume 9.3 fL (7.4-10.4); Platelet Count 250 10^3/uL (150-450); Red Blood Count 3.16 10^6 /uL (4.18-5.48); Red Cell Distribution Width 16 % (10-15); White Blood Count 26.9 10^3/uL (3.5-10.8)
[2020-01-09 04:36] LABS: ABS Lymphocytes 0.2 10^3/ul (1.0-4.8); ABS Monocytes 0.5 10^3/ul (0-0.8); ABS Neutrophils 26.1 10^3/ul (1.5-7.7); Lymphocyte % 0.9 %
[2020-01-09 04:44] LABS: BUN/Creatinine Ratio 37.5 (8-20); Calcium 9.2 mg/dL (8.6-10.3); EGFR African American 148.3 (>60); EGFR Non-African American 122.6 (>60); Potassium 3.9 mmol/L (3.5-5.0)
[2020-01-09] MEDS: Heparin VIAL(*) 5000 UNITS/ML VIAL (FIVE THOUSAND) SUBCUT SCH ×3 (05:12→21:17)
[2020-01-09] MEDS: Levothyroxine TAB* 112 MCG TAB PO SCH (05:12)
[2020-01-09] MEDS: SPIRIVA Respimat* (tiotropium) 2.5 mcg/inh Inhaler INH SCH (07:48)
[2020-01-09] MEDS: Mometasone/Formoter 200/5 MDI INH SCH ×2 (07:48→21:46)
[2020-01-09] MEDS: Magnesium Oxide TAB* 400 MG PO SCH ×2 (09:23→19:45)
[2020-01-09] MEDS: Aspirin 81 mg CHEW TAB* 81 MG TAB.CHEW PO SCH (09:23)
[2020-01-09] MEDS: Cetirizine* 10 MG TAB PO SCH (09:23)
[2020-01-09] MEDS: Metoprolol Tartrate TAB* 50 mg PO SCH ×2 (09:24→19:45)
[2020-01-09] MEDS: Polyethylene Glycol 3350* 17 GM PACKET PO SCH (09:26)
[2020-01-09] MEDS: Furosemide IV* 10 MG/ML 2 ML VIAL (20 MG) IV SCH (09:28)
--- NOTE | 2020-01-09 10:15 | PN ---
Subjective Date of Service: 01/09/20 Interval History: HD 16 on 01/08 74M PMH lung Ca s/p R lobectomy, COPD and chronic hypoxic resp failure on 2-3L NC at baseline, sp AVR, CAD s/p CABG, hypothyroid, with recent outside hospital cardiac arrest and ROSC with resultant HFpEF (?) EF 75%-poor study on prior to representing for hypoxic/hypercarbic resp failure 12/02 to pseudomonas PNA and COPD exacerbation requiring BiPAP and ICU. Transferred to floor on 01/02, stay c/b tenuous resp status. Overnight: No acute overnight events; used Bipap Patient seen and examined at bedside. Patient feeling better. Patient having productive cough but no blood. Patient denies chest pain and palpitation. Says he feels great after inhalation treatment. On 3 L of oxygen which is baseline. Objective Active Medications: Acetylcysteine (Mucomyst Inhalation Marilynn*) 400 mg INH [id number] [facility] Stop: 01/12/20 23:59 Last Admin: 01/09/20 07:47 Dose: 400 mg Albuterol/Ipratropium (Duoneb (Albuterol 2.5 Mg/Ipratropium 0.5 Mg)) 1 neb INH [id number] [facility] Aspirin (Aspirin 81 Mg Chew Tab*) 81 mg PO DAILY [facility] Last Admin: 01/09/20 09:23 Dose: 81 mg Atorvastatin Calcium (Lipitor*) 40 mg PO QPM [facility] Last Admin: 01/08/20 17:55 Dose: 40 mg Bisacodyl (Dulcolax Supp*) 10 mg [place] DAILY PRN PRN Reason: CONSTIPATION Cetirizine HCl (Zyrtec*) 10 mg PO DAILY [facility] Last Admin: 01/09/20 09:23 Dose: 10 mg Furosemide (Lasix Tab*) 40 mg PO DAILY [facility] Heparin Sodium (Porcine) (Heparin Vial(*)) 5,000 units SUBCUT Q8HR [facility] Last Admin: 01/09/20 05:12 Dose: 5,000 units Levothyroxine Sodium (Synthroid Tab*) 112 mcg PO 0600 [facility] Last Admin: 01/09/20 05:12 Dose: 112 mcg Magnesium Oxide (Magox 400 Tab*) 400 mg PO BID [facility] Last Admin: 01/09/20 09:23 Dose: 400 mg Metoprolol Tartrate (Lopressor Tab*) 25 mg PO BID [facility] Last Admin: 01/09/20 09:24 Dose: 25 mg Mometasone Furoate/Formoterol Fumar (Dulera 200/5 Mdi*) 2 puff INH BID [facility] Last Admin: 01/09/20 07:48 Dose: 2 puff Polyethylene Glycol/Electrolytes (Miralax (17 Gm Dose Oliver)) 17 gm PO DAILY [facility] Last Admin: 01/09/20 09:26 Dose: Not Given Prednisone (Deltasone 50 Mg Tab) 50 mg PO DAILY [facility] Last Admin: 01/09/20 09:23 Dose: 50 mg Senna (Senokot 8.6 Mg Tab*) 1 tab PO BEDTIME [facility] Last Admin: 01/08/20 20:46 Dose: Not Given Tiotropium [place] (Spiriva Respimat 2.5 Mcg) 2 puff INH DAILY [facility] Last Admin: 01/09/20 07:48 Dose: 2 puff Vital Signs - 8 hr 01/09/20 01/09/20 03:42 07:55 Temperature 97.5 F Pulse Rate 103 115 Respiratory 16 17 Rate Blood Pressure 102/63 (mmHg) O2 Sat by Pulse 99 94 Oximetry Oxygen Devices in Use Now: Nasal Cannula Exam: Oxygen Devices in Use Now: Nasal Cannula Appearance: Pleasant man in NAD, mildly SOB with conversation and after coughing Eyes: No Scleral Icterus, PERRLA Ears/Nose/Mouth/Throat: NL Teeth, Lips, Gums, Mucous Membranes Moist Neck: NL Appearance and Movements; NL JVP Respiratory: Symmetrical Chest Expansion - - Diffuse rhonchi, no wheezing Cardiovascular: NL Sounds; No Murmurs; No JVD, RRR Abdominal: NL Sounds; No Tenderness; No Distention, No Hepatosplenomegaly Lymphatic: No Cervical Adenopathy Extremities: pitting Edema Skin: No Rash or Ulcers Neurological: Alert and Oriented x 3 - Nutrition: Malnutrition Diagnosis/Plan Malnutrition Assessment by Registered Dietitian: Malnutrition Assessment Clinical Characteristics Chronic,Severe Malnutrition Assessment: - wt loss from 185# to 145# (21.6%) in past six Criteria months - severe temporal and clavicular wasting Malnutrition Assessment: - regular unrestricted diet Interventions - pureed textures, honey-thick liquids; follow - follow CHEF MANAGER progress notes for ability to upgrade (or need to downgrade) - Ensure pudding @ B-L-D; extra sauce and LS gravy for meats - follow labs, weights Malnutrition Assessment: Goals 1. adequate intake to support hydration and lean body mass without add'l wt loss 2. ideally, gradual 20# repletion of wt and lean body mass 3. maintain serum electrolytes WNL; no s/sx refeeding syndrome 4. regulation of bowel pattern; no c/o constipation (or diarrhea) Result Diagrams: 01/09/20 03:58 01/09/20 03:58 Additional Lab and Data: Laboratory Tests 01/03/20 01/03/20 06:04 06:04 Calcium 9.2 Ionized Calcium 1.15 L Total Bilirubin 1.70 H Microbiology and Other Data: Microbiology 12/28/19 12:08 Aerobic Blood Culture - Final Blood Venous No Growth Day 5 Anaerobic Blood Culture - Final No Growth Day 5 12/28/19 12:10 Aerobic Blood Culture - Final Blood Venous No Growth Day 5 Anaerobic Blood Culture - Final No Growth Day 5 12/28/19 11:50 Gram Stain - Final Sputum Expectorated Sputum Culture - Final Pseudomonas Aeruginosa Normal Margaux 12/26/19 10:30 Nasal Screen MRSA (PCR) - Final Nasal Mrsa Not Detected 12/26/19 10:55 Legionella Urinary Antigen - Final Urine Negative Legionella Antigen Streptococcus pneumoniae Ag Screen - Final Negative S. pneumo Antigen Diagnostic Imaging: Echo 12/26 Conclusions Summary: - Procedure narrative: The study was technically limited due to poor acoustic window availability, heart shifted to the right. - Left ventricle: The cavity size is moderately reduced. Wall thickness is normal. Systolic function is vigorous. The estimated ejection fraction is 70-75%. - Right ventricle: Systolic function is low normal. - Tricuspid valve: There is trace to mild regurgitation. - Pulmonary arteries: Systolic pressure is within the normal range. The peak pressure during systole by Doppler is 30.0 mm Hg. CTA IMPRESSION: 1. No CT of evidence of pulmonary embolism in the remaining left pulmonary arteries. 2. There is a small left-sided pleural effusion with adjacent compressive atelectasis of the left lower lobe. 3. Extensive chronic, degenerative and postsurgical changes. 12/29 No DVT Assess/Plan/Problems-Billing Assessment: 74M PMH lung Ca s/p R lobectomy, COPD and chronic hypoxic resp failure on 2-3L NC at baseline, sp AVR, CAD s/p CABG, hypothyroid, with recent outside hospital cardiac arrest and ROSC with resultant HFpEF (?) EF 75%-poor study on prior to representing for hypoxic/hypercarbic resp failure 12/02 to pseudomonas PNA and COPD exacerbation requiring BiPAP and ICU. Transferred to floor on 01/02, stay c/b tenuous resp status and leukocytosis. Completed course of meropenem - Patient Problems (1) Acute and chronic respiratory failure with hypercapnia Current Visit: Yes Status: Acute Priority: High Code(s): J96.22 - ACUTE AND CHRONIC RESPIRATORY FAILURE WITH HYPERCAPNIA SNOMED Code(s): 5066664050525 Comment: - Chronic failure likely from COPD and heart failure - this acute episode likely multifactorial-PNA, COPD exacerbation in setting of poor reserve, ? volume overload - Metanebs, Steroids, Lasix - Continue steroids- changed to oral 50 mg daily - continue LAMA, LABA neb tx, appreciate pulm - Meropenem course completed -Continue lasix 40 PO - Continue mucolytic inhalers - will do a trial off of Bipap today and see how he does tomorrow - ABG in AM to see if he can get BiPAP at home (2) Pneumonia due to Pseudomonas Current Visit: Yes Status: Acute Comment: - Sputum- pseudomonas sensitive to meropenem - Completed course of meropenem. - Increasing WBC count; secondary to steroids; no other signs of infection and patient does not look septic. - steroid PO- 50 mg, taper as able (3) CAD (coronary artery disease) Current Visit: Yes Status: Acute Code(s): I25.10 - ATHSCL HEART DISEASE OF [place] CORONARY ARTERY W/O ANG PCTRS SNOMED Code(s): 20581149 Comment: - On BB, asa, statin - Recent outside arrest, keep K>4, Mag>2 - No RWMA on echo, though poor study with such sig sinus tachycardia (4) Sinus tachycardia Current Visit: Yes Status: Acute Code(s): R00.0 - TACHYCARDIA, UNSPECIFIED SNOMED Code(s): 86912735 Comment: - Suspect reactive, no e/o arrythmia, monitor on tele - Remains on Metoprolol 25 BID, attempted to increase to 50mg, though did not tolerate (5) COPD (chronic obstructive pulmonary disease) Current Visit: Yes Status: Acute Code(s): J44.9 - CHRONIC OBSTRUCTIVE PULMONARY DISEASE, UNSPECIFIED SNOMED Code(s): 47967252 Comment: - On home 2-3L NC - Appreciate pulmonary consultation, on steroids, on metanebs, and mucolytics on 01/06 - flutter valve - ON oral prednisone 50 mg 01/08 (6) Hypothyroid Current Visit: Yes Status: Acute Code(s): E03.9 - HYPOTHYROIDISM, UNSPECIFIED SNOMED Code(s): 36012733 Comment: - Continue levothryoxine (7) Normocytic anemia Current Visit: Yes Status: Acute Code(s): D64.9 - ANEMIA, UNSPECIFIED SNOMED Code(s): 295549468 Comment: - Stable, - Iron and ferritin normal (8) DVT prophylaxis Current Visit: Yes Status: Acute Priority: Low Code(s): Z29.9 - ENCOUNTER FOR PROPHYLACTIC MEASURES, UNSPECIFIED SNOMED Code(s): 072190732 Comment: - SC heparin (9) Full code status Current Visit: Yes Status: Acute Code(s): Z78.9 - OTHER SPECIFIED HEALTH STATUS SNOMED Code(s): 720770345 Status and Disposition: Inpatient Lines: PIV Tubes: no gerardo Diet: Regular, pureed and nectar thick Case Mgmt: May need rehab Attending: Guillermina Craig Attestation Attending/Supervising Physician Comment: Agree with resident findings, note, exam, assessment and plan. 74M PMH lung Ca s/p R lobectomy, COPD and chronic hypoxic resp failure on 2-3L NC at baseline, sp AVR, CAD s/p CABG, hypothyroid, with recent outside hospital cardiac arrest and ROSC with resultant HFpEF (?) EF 75%-poor study on prior to representing for hypoxic/hypercarbic resp failure 12/02 to pseudomonas PNA and COPD exacerbation requiring BiPAP and ICU. Today, patient slowly improvement. Has a very limited reserve and a tenuous status, he has only 1 lung and his other lung has sig COPD exacerbation along with PNA, coupled with his recent arrest he is frail and at high risk for re admission. While he is back at his home O2 status, he gets very SOB and fatigued easily. He may benefit from BiPAP correction for his correction chronic hypercarbic respiratory failure Plan today: -Wean steroids -Will trial off BiPAP tonight and ABG in AM -Continue aggressive tx -Had GOC discussion with him on 01/06, still very clear on full code and well educated Otherwise watchful waiting and aggressive maximal pulm care as we are offering. Appreciate pulm and ID
--- NOTE | 2020-01-09 12:43 | PN ---
Progress Note - Progress Note Date of Service: 01/09/20 SOAP: Subjective: CC: PNA HPI: Mr. Navarrete is a 74 yo male with PMH significant for right lung cancer s/p right pneumonectomy, COPD, hx cardiac arrest, CAD with CABG and stent placement ; who presented to the emergency room with complaints of shortness of breath and acute on chronic hypoxic respiratory failure. Denies fever, chills, ABD pain , nausea, vomiting, diarrhea, joint pain, back or neck pain, or urinary symptoms. Shortness of breath was improved this AM, but now after a walk in the hallway his breathing is worse. Objective: Vital Signs - 8 hr 01/09/20 01/09/20 01/09/20 07:55 08:00 13:21 Temperature 97.5 F Pulse Rate 115 115 115 Respiratory 17 18 20 Rate Blood Pressure 94/66 (mmHg) O2 Sat by Pulse 94 100 96 Oximetry Physical Exam: General: NAD, sitting up in bed Neurological: Alert and Oriented HEENT: Moist MM Cardiovascular: Heart rate regular Respiratory: Lung sounds with bilateral scattered rhonchi Abdominal: Bowel sounds present; ABD soft, non tender and non distended Skin: No rash Laboratory Results - last 24 hr 01/09/20 01/09/20 03:58 03:58 WBC 26.9 H RBC 3.16 L Hgb 9.4 L Hct 29 L MCV 90 MCH 30 MCHC 33 RDW 16 H Plt Count 250 MPV 9.3 Neut % (Auto) 97.0 Lymph % (Auto) 0.9 [place]ell % (Auto) 2.0 Eos % (Auto) 0.0 Baso % (Auto) 0.1 Absolute Neuts (auto) 26.1 H Absolute Lymphs (auto) 0.2 L Absolute Monos (auto) 0.5 Absolute Eos (auto) 0.0 Absolute Basos (auto) 0.0 Absolute Nucleated RBC 0.0 Nucleated RBC % 0.0 Sodium 141 Potassium 3.9 Chloride 98 L Carbon Dioxide 41 H* Anion Gap 2 BUN 24 Creatinine 0.64 L Est GFR ( Amer) 148.3 Est GFR (Non-Af Amer) 122.6 BUN/Creatinine Ratio 37.5 H Glucose 136 H Calcium 9.2 Microbiology 12/28/19 12:08 Aerobic Blood Culture - Final Blood Venous No Growth Day 5 Anaerobic Blood Culture - Final No Growth Day 5 12/28/19 12:10 Aerobic Blood Culture - Final Blood Venous No Growth Day 5 Anaerobic Blood Culture - Final No Growth Day 5 12/28/19 11:50 Gram Stain - Final Sputum Expectorated Sputum Culture - Final Pseudomonas Aeruginosa Normal Margaux 12/26/19 10:30 Nasal Screen MRSA (PCR) - Final Nasal Mrsa Not Detected 12/26/19 10:55 Legionella Urinary Antigen - Final Urine Negative Legionella Antigen Streptococcus pneumoniae Ag Screen - Final Negative S. pneumo Antigen Assessment: 1. Pseudomonas PNA. Sputum culture with MDR pseudomonas. Blood cultures with no growth. Urine antigens negative for s. pneumo and legionella. Noted to have tachycardia and intermittent tachypnea. Afebrile and leukocytosis trending down today. Completed course of meropenum yesterday. 2. Acute on chronic hypoxic respiratory failure. Baseline O2 is 2L via NC, currently on 3 L via NC 3. Leukocytosis. Noted to have elevation in WBC count since 01/05, now trending back down. Differential Dx: New infection, C-diff, worsening infection, or reaction to steroids. Denies ABD pain or diarrhea, low suspicion for C-diff. Denies urinary symptoms. No other signs of infection. Was started on steroids 01/05/20, suspect secondary to steroids. 4. History of right lung cancer, S/P right pneumonectomy. Plan: Completed a 10 day course of meropenum yesterday.
--- NOTE | 2020-01-09 15:47 | PN ---
Progress Note - Progress Note Date of Service: 01/09/20 - Pulm f/u note Note: Pt seen and examined at bedside. Pt reports feeling slightly better. Able to expectorate phleghm Active Medications Generic Name Dose Route Start Last Admin Trade Name Freq PRN Reason Stop Dose Admin Acetylcysteine 400 mg 01/08/20 13:00 01/09/20 13:16 Mucomyst Inhalation Marilynn* INH 01/12/20 23:59 400 mg [id number] [facility]WAKE JARED Administration Albuterol/Ipratropium 1 neb 01/09/20 11:00 01/09/20 13:16 Duoneb (Albuterol 2.5 Mg/Ipratropium 0.5 Mg) INH 1 neb [id number] [facility]KE JARED Administration Aspirin 81 mg 12/28/19 09:00 01/09/20 09:23 Aspirin 81 Mg Chew Tab* PO 81 mg DAILY JARED Administration Atorvastatin Calcium 40 mg 12/27/19 18:00 01/08/20 17:55 Lipitor* PO 40 mg QPM JARED Administration Bisacodyl 10 mg 12/26/19 10:55 Dulcolax Supp* [place] DAILY PRN CONSTIPATION Cetirizine HCl 10 mg 12/27/19 09:00 01/09/20 09:23 Zyrtec* PO 10 mg DAILY JARED Administration Furosemide 40 mg 01/10/20 09:00 Lasix Tab* PO DAILY JARED Heparin Sodium (Porcine) 5,000 units 12/26/19 14:00 01/09/20 14:53 Heparin Vial(*) SUBCUT 5,000 units Q8HR JARED Administration Levothyroxine Sodium 112 mcg 12/27/19 09:00 01/09/20 05:12 Synthroid Tab* PO 112 mcg 0600 JARED Administration Magnesium Oxide 400 mg 01/03/20 21:00 01/09/20 09:23 Magox 400 Tab* PO 400 mg BID JARED Administration Metoprolol Tartrate 25 mg 01/06/20 09:00 01/09/20 09:24 Lopressor Tab* PO 25 mg BID JARED Administration Mometasone Furoate/Formoterol Fumar 2 puff 12/27/19 21:00 01/09/20 07:48 Dulera 200/5 Mdi* INH 2 puff BID JARED Administration Polyethylene Glycol/Electrolytes 17 gm 12/27/19 09:00 01/09/20 09:26 Miralax (17 Gm Dose Oliver) PO Not Given DAILY JARED Prednisone 50 mg 01/09/20 09:00 01/09/20 09:23 Deltasone 50 Mg Tab PO 50 mg DAILY JARED Administration Senna 1 tab 12/26/19 21:00 01/08/20 20:46 Senokot 8.6 Mg Tab* PO Not Given BEDTIME JARED Tiotropium [place] 2 puff 12/27/19 09:00 01/09/20 07:48 Spiriva Respimat 2.5 Mcg INH 2 puff DAILY JARED Administration Vital Signs Temp Pulse Resp BP Pulse Ox 97.5 F 115 20 94/66 96 01/09/20 08:00 01/09/20 13:21 01/09/20 13:21 01/09/20 08:00 01/09/20 13:21 O/E: Pt in NAD HEENT: PERRLA Lungs: Diminished, scaterred wheeze+ CVS: S1, S2+ Abd: Soft, BS+ Ext: Normal ROM Skin: No rash Neuro: No focal deficits Laboratory Results - last 24 hr 01/09/20 01/09/20 03:58 03:58 WBC 26.9 H RBC 3.16 L Hgb 9.4 L Hct 29 L MCV 90 MCH 30 MCHC 33 RDW 16 H Plt Count 250 MPV 9.3 Neut % (Auto) 97.0 Lymph % (Auto) 0.9 [place] % (Auto) 2.0 Eos % (Auto) 0.0 Baso % (Auto) 0.1 Absolute Neuts (auto) 26.1 H Absolute Lymphs (auto) 0.2 L Absolute Monos (auto) 0.5 Absolute Eos (auto) 0.0 Absolute Basos (auto) 0.0 Absolute Nucleated RBC 0.0 Nucleated RBC % 0.0 Sodium 141 Potassium 3.9 Chloride 98 L Carbon Dioxide 41 H* Anion Gap 2 BUN 24 Creatinine 0.64 L Est GFR ( Amer) 148.3 Est GFR (Non-Af Amer) 122.6 BUN/Creatinine Ratio 37.5 H Glucose 136 H Calcium 9.2 I/R: 74 y o m with COPD with Pseudomonal PNA, acute on chronic hypoxic and hyper capnic resp failure Pt with slow improvement Finally able to expectorate phleghm with mucomyst and metanebs Intermittent wheeze+ c/w bronchodialtors and steroids Will start steroid taper tomorrow To have ABG in am c/w O2 OOB to chair Possible d/c on Tuesday if continues to improve
[2020-01-09] MEDS: Atorvastatin* 40 MG TAB PO SCH (17:56)
[2020-01-09] MEDS: Senna TAB 8.6 mg* TAB PO SCH ×2 (19:45→19:56)
[2020-01-09] MEDS ORDERED: Furosemide IV* 10 MG/ML 2 ML VIAL (20 MG) IV SLOW PU ONE (20:47)
[2020-01-10] MEDS: Acetylcysteine INHALATION SOL* 200 MG/ML NEB.SOLN 10 ML INH SCH ×4 (01:44→19:02)
[2020-01-10] MEDS: Albuterol/Ipratropium NEB.SOL* Albuterol 2.5 MG/Ipratropium 0.5 MG 3 ML INH SCH ×3 (05:35→19:01)
[2020-01-10] MEDS: Mometasone/Formoter 200/5 MDI INH SCH ×3 (05:45→19:02)
[2020-01-10] MEDS: SPIRIVA Respimat* (tiotropium) 2.5 mcg/inh Inhaler INH SCH ×2 (05:46→11:07)
[2020-01-10] MEDS: Levothyroxine TAB* 112 MCG TAB PO SCH (05:51)
[2020-01-10] MEDS: Heparin VIAL(*) 5000 UNITS/ML VIAL (FIVE THOUSAND) SUBCUT SCH ×3 (05:51→21:11)
[2020-01-10 06:46] LABS: ABS Lymphocytes 0.4 10^3/ul (1.0-4.8); ABS Monocytes 1.3 10^3/ul (0-0.8); ABS Neutrophils 17.7 10^3/ul (1.5-7.7); Hematocrit 30 % (42-52); Hemoglobin 9.9 g/dL (14.0-18.0); Lymphocyte % 2.2 %; Mean Corpuscular HGB Conc 33 g/dL (31-36); Mean Corpuscular Hemoglobin 30 pg (27-31); Mean Corpuscular Volume 90 fL (80-94); Mean Platelet Volume 9.3 fL (7.4-10.4); Platelet Count 249 10^3/uL (150-450); Red Blood Count 3.34 10^6 /uL (4.18-5.48); Red Cell Distribution Width 16 % (10-15); White Blood Count 19.4 10^3/uL (3.5-10.8)
[2020-01-10 06:53] LABS: Calcium 9.4 mg/dL (8.6-10.3); EGFR African American 127.4 (>60); EGFR Non-African American 105.3 (>60); Potassium 3.6 mmol/L (3.5-5.0)
[2020-01-10] MEDS: Polyethylene Glycol 3350* 17 GM PACKET PO SCH (09:14)
[2020-01-10] MEDS: Metoprolol Tartrate TAB* 50 mg PO SCH ×2 (09:14→19:26)
[2020-01-10] MEDS: Cetirizine* 10 MG TAB PO SCH (09:15)
[2020-01-10] MEDS: Magnesium Oxide TAB* 400 MG PO SCH ×2 (09:15→21:11)
[2020-01-10] MEDS: Furosemide TAB* 40 MG PO SCH (09:15)
[2020-01-10] MEDS: Aspirin 81 mg CHEW TAB* 81 MG TAB.CHEW PO SCH (09:15)
--- NOTE | 2020-01-10 14:27 | PN ---
Subjective Date of Service: 01/10/20 Interval History: HD 17 on 01/09 74M PMH lung Ca s/p R lobectomy, COPD and chronic hypoxic resp failure on 2-3L NC at baseline, sp AVR, CAD s/p CABG, hypothyroid, with recent outside hospital cardiac arrest and ROSC with resultant HFpEF (?) EF 75%-poor study on prior to representing for hypoxic/hypercarbic resp failure 12/02 to pseudomonas PNA and COPD exacerbation requiring BiPAP and ICU. Transferred to floor on 01/02, stay c/b tenuous resp status. Overnight: received extra lasix 20 mg IV Patient seen and examine at bedside. Patient states that he is going good except sometimes when his secretions bothers him as he can't get them out. Otherwise he is doing fine- no chest pain, shortness of breath. Patient was off Bipap overnight for a trial. Objective Active Medications: Acetylcysteine (Mucomyst Inhalation Marilynn*) 400 mg INH [id number] [facility]KE [facility] Stop: 01/12/20 23:59 Last Admin: 01/10/20 05:35 Dose: 400 mg Albuterol/Ipratropium (Duoneb (Albuterol 2.5 Mg/Ipratropium 0.5 Mg)) 1 neb INH [id number] [facility] Last Admin: 01/10/20 05:35 Dose: 1 neb Aspirin (Aspirin 81 Mg Chew Tab*) 81 mg PO DAILY [facility] Last Admin: 01/10/20 09:15 Dose: 81 mg Atorvastatin Calcium (Lipitor*) 40 mg PO QPM [facility] Last Admin: 01/09/20 17:56 Dose: 40 mg Bisacodyl (Dulcolax Supp*) 10 mg [place] DAILY PRN PRN Reason: CONSTIPATION Cetirizine HCl (Zyrtec*) 10 mg PO DAILY [facility] Last Admin: 01/10/20 09:15 Dose: 10 mg Furosemide (Lasix Tab*) 40 mg PO DAILY [facility] Last Admin: 01/10/20 09:15 Dose: 40 mg Heparin Sodium (Porcine) (Heparin Vial(*)) 5,000 units SUBCUT Q8HR [facility] Last Admin: 01/10/20 13:39 Dose: 5,000 units Levothyroxine Sodium (Synthroid Tab*) 112 mcg PO 0600 [facility] Last Admin: 01/10/20 05:51 Dose: 112 mcg Magnesium Oxide (Magox 400 Tab*) 400 mg PO BID [facility] Last Admin: 01/10/20 09:15 Dose: 400 mg Metoprolol Tartrate (Lopressor Tab*) 25 mg PO BID [facility] Last Admin: 01/10/20 09:14 Dose: 25 mg Mometasone Furoate/Formoterol Fumar (Dulera 200/5 Mdi*) 2 puff INH BID [facility] Last Admin: 01/10/20 11:06 Dose: Not Given Polyethylene Glycol/Electrolytes (Miralax (17 Gm Dose Oliver)) 17 gm PO DAILY [facility] Last Admin: 01/10/20 09:14 Dose: 17 gm Prednisone (Deltasone 20 Mg Tab) 40 mg PO DAILY [facility] Senna (Senokot 8.6 Mg Tab*) 1 tab PO BEDTIME [facility] Last Admin: 01/09/20 19:56 Dose: Not Given Tiotropium [place] (Spiriva Respimat 2.5 Mcg) 2 puff INH DAILY [facility] Last Admin: 01/10/20 11:07 Dose: Not Given Vital Signs - 8 hr 01/10/20 01/10/20 07:39 08:00 Temperature 97.5 F 97.8 F Pulse Rate 116 108 Respiratory 21 20 Rate Blood Pressure 103/60 108/86 (mmHg) O2 Sat by Pulse 92 99 Oximetry Oxygen Devices in Use Now: Nasal Cannula Exam: Oxygen Devices in Use Now: Nasal Cannula Appearance: Pleasant man in NAD, Eyes: No Scleral Icterus, PERRLA Ears/Nose/Mouth/Throat: NL Teeth, Lips, Gums, Mucous Membranes Moist Neck: NL Appearance and Movements; NL JVP Respiratory: Symmetrical Chest Expansion - -clear with no added sounds on left side Cardiovascular: NL Sounds; No Murmurs; No JVD, RRR Abdominal: NL Sounds; No Tenderness; No Distention, No Hepatosplenomegaly Lymphatic: No Cervical Adenopathy Extremities: pitting Edema- improving Skin: No Rash or Ulcers Neurological: Alert and Oriented x 3 - Nutrition: Malnutrition Diagnosis/Plan Malnutrition Assessment by Registered Dietitian: Malnutrition Assessment Clinical Characteristics Chronic,Severe Malnutrition Assessment: - wt loss from 185# to 145# (21.6%) in past six Criteria months - severe temporal and clavicular wasting Malnutrition Assessment: - regular unrestricted diet Interventions - pureed textures, honey-thick liquids; follow - 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 adequate intake to support hydration and lean body mass without add'l wt loss 2. ideally, gradual 20# repletion of wt and lean body mass 3. maintain serum electrolytes WNL; no s/sx refeeding syndrome 4. regulation of bowel pattern; no c/o constipation (or diarrhea) Result Diagrams: 01/10/20 06:13 01/10/20 06:13 Additional Lab and Data: Laboratory Tests 01/03/20 01/03/20 06:04 06:04 Calcium 9.2 Ionized Calcium 1.15 L Total Bilirubin 1.70 H Microbiology and Other Data: Microbiology 12/28/19 12:08 Aerobic Blood Culture - Final Blood Venous No Growth Day 5 Anaerobic Blood Culture - Final No Growth Day 5 12/28/19 12:10 Aerobic Blood Culture - Final Blood Venous No Growth Day 5 Anaerobic Blood Culture - Final No Growth Day 5 12/28/19 11:50 Gram Stain - Final Sputum Expectorated Sputum Culture - Final Pseudomonas Aeruginosa Normal Margaux 12/26/19 10:30 Nasal Screen MRSA (PCR) - Final Nasal Mrsa Not Detected 12/26/19 10:55 Legionella Urinary Antigen - Final Urine Negative Legionella Antigen Streptococcus pneumoniae Ag Screen - Final Negative S. pneumo Antigen Diagnostic Imaging: Echo 12/26 Conclusions Summary: - Procedure narrative: The study was technically limited due to poor acoustic window availability, heart shifted to the right. - Left ventricle: The cavity size is moderately reduced. Wall thickness is normal. Systolic function is vigorous. The estimated ejection fraction is 70-75%. - Right ventricle: Systolic function is low normal. - Tricuspid valve: There is trace to mild regurgitation. - Pulmonary arteries: Systolic pressure is within the normal range. The peak pressure during systole by Doppler is 30.0 mm Hg. CTA IMPRESSION: 1. No CT of evidence of pulmonary embolism in the remaining left pulmonary arteries. 2. There is a small left-sided pleural effusion with adjacent compressive atelectasis of the left lower lobe. 3. Extensive chronic, degenerative and postsurgical changes. 12/29 No DVT Assess/Plan/Problems-Billing Assessment: 74M PMH lung Ca s/p R lobectomy, COPD and chronic hypoxic resp failure on 2-3L NC at baseline, sp AVR, CAD s/p CABG, hypothyroid, with recent outside hospital cardiac arrest and ROSC with resultant HFpEF (?) EF 75%-poor study on prior to representing for hypoxic/hypercarbic resp failure 12/02 to pseudomonas PNA and COPD exacerbation requiring BiPAP and ICU. Transferred to floor on 01/02, stay c/b tenuous resp status and leukocytosis. Completed course of meropenem - Patient Problems (1) Acute and chronic respiratory failure with hypercapnia Current Visit: Yes Status: Acute Priority: High Code(s): J96.22 - ACUTE AND CHRONIC RESPIRATORY FAILURE WITH HYPERCAPNIA SNOMED Code(s): 7726921742310 Comment: - Chronic failure likely from COPD and heart failure - this acute episode likely multifactorial-PNA, COPD exacerbation in setting of poor reserve, ? volume overload - Metanebs, Steroids, Lasix - tapering steroids slowly- now on 40 mg daily - continue LAMA, LABA neb tx, appreciate pulm - Meropenem course completed -Continue lasix 40 PO - Continue mucolytic inhalers - ABG showing retention of Co2. (2) Pneumonia due to Pseudomonas Current Visit: Yes Status: Acute Comment: - Sputum- pseudomonas sensitive to meropenem - Completed course of meropenem. - Increased WBC count-secondary to steroids, now improving; no other signs of infection and patient does not look septic. - steroid PO- 40 mg, taper as able (3) CAD (coronary artery disease) Current Visit: Yes Status: Acute Code(s): I25.10 - ATHSCL HEART DISEASE OF [place] CORONARY ARTERY W/O ANG PCTRS SNOMED Code(s): 37360061 Comment: - On BB, asa, statin - Recent outside arrest, keep K>4, Mag>2 - No RWMA on echo, though poor study with such sig sinus tachycardia (4) Sinus tachycardia Current Visit: Yes Status: Acute Code(s): R00.0 - TACHYCARDIA, UNSPECIFIED SNOMED Code(s): 67823549 Comment: - Suspect reactive, no e/o arrythmia, monitor on tele - Remains on Metoprolol 25 BID, attempted to increase to 50mg, though did not tolerate -R/O PE (5) COPD (chronic obstructive pulmonary disease) Current Visit: Yes Status: Acute Code(s): J44.9 - CHRONIC OBSTRUCTIVE PULMONARY DISEASE, UNSPECIFIED SNOMED Code(s): 11478428 Comment: - On home 2-3L NC - Appreciate pulmonary consultation, on steroids, on metanebs, and mucolytics on 01/06 - flutter valve - tapering steroids (6) Hypothyroid Current Visit: Yes Status: Acute Code(s): E03.9 - HYPOTHYROIDISM, UNSPECIFIED SNOMED Code(s): 98469761 Comment: - Continue levothryoxine (7) Normocytic anemia Current Visit: Yes Status: Acute Code(s): D64.9 - ANEMIA, UNSPECIFIED SNOMED Code(s): 861092939 Comment: - Stable, - Iron and ferritin normal (8) DVT prophylaxis Current Visit: Yes Status: Acute Priority: Low Code(s): Z29.9 - ENCOUNTER FOR PROPHYLACTIC MEASURES, UNSPECIFIED SNOMED Code(s): 329153178 Comment: - SC heparin (9) Full code status Current Visit: Yes Status: Acute Code(s): Z78.9 - OTHER SPECIFIED HEALTH STATUS SNOMED Code(s): 109984414 Status and Disposition: Inpatient Lines: PIV Tubes: no gerardo Diet: Regular, pureed and nectar thick Attending: Guillermina Craig Attestation Documenting Resident: Julio Byrd Supervising Physician: Guillermina Craig Attending/Supervising Physician Comment: Agree with resident findings, note, exam, assessment and plan. 74M PMH lung Ca s/p R lobectomy, COPD and chronic hypoxic resp failure on 2-3L NC at baseline, sp AVR, CAD s/p CABG, hypothyroid, with recent outside hospital cardiac arrest and ROSC with resultant HFpEF (?) EF 75%-poor study on prior to representing for hypoxic/hypercarbic resp failure 12/02 to pseudomonas PNA and COPD exacerbation requiring BiPAP and ICU. Interim: Today, still some mild improvement. Has a very limited reserve and a tenuous status, he has only 1 lung and his other lung has sig COPD exacerbation along with PNA, coupled with his recent arrest he is frail and at high risk for re admission. Trying to optimize him by getting Trilogy at home. Plan today: -Continue steroid wean -Continue BiPAP as he is CLEARLY retaining -Continue aggressive tx -Had GOC discussion with him on 01/06, still very clear on full code and well educated Otherwise watchful waiting and aggressive maximal pulm care as we are offering. Appreciate pulm and ID Will attempt to update family, may be able to be d/c to home soon Attestation: This service has been performed in part by a resident under the direction of a teaching physician.I, Guillermina Craig, performed the service, or was physically present during the critical, or ford portions of the service, furnished by the resident. I participated in the management of the patient.
[2020-01-10] MEDS: Atorvastatin* 40 MG TAB PO SCH (17:56)
[2020-01-10] MEDS: Senna TAB 8.6 mg* TAB PO SCH (21:11)
[2020-01-11] MEDS: Albuterol/Ipratropium NEB.SOL* Albuterol 2.5 MG/Ipratropium 0.5 MG 3 ML INH SCH ×4 (02:10→20:59)
[2020-01-11] MEDS: Acetylcysteine INHALATION SOL* 200 MG/ML NEB.SOLN 10 ML INH SCH ×4 (02:10→20:59)
[2020-01-11 05:31] LABS: Hematocrit 32 % (42-52); Hemoglobin 10.1 g/dL (14.0-18.0); Mean Corpuscular HGB Conc 32 g/dL (31-36); Mean Corpuscular Hemoglobin 29 pg (27-31); Mean Corpuscular Volume 92 fL (80-94); Mean Platelet Volume 9.2 fL (7.4-10.4); Platelet Count 261 10^3/uL (150-450); Red Blood Count 3.44 10^6 /uL (4.18-5.48); Red Cell Distribution Width 17 % (10-15); White Blood Count 29.6 10^3/uL (3.5-10.8)
[2020-01-11 05:50] LABS: Calcium 9.5 mg/dL (8.6-10.3); EGFR African American 131.6 (>60); EGFR Non-African American 108.8 (>60); Potassium 4.2 mmol/L (3.5-5.0)
[2020-01-11 06:01] LABS: ABS Eosinophils 0.1 10^3/ul (0-0.6); ABS Lymphocytes 0.4 10^3/ul (1.0-4.8); ABS Monocytes 1.6 10^3/ul (0-0.8); ABS Neutrophils 27.6 10^3/ul (1.5-7.7); Eosinophil % 0.2 %; Lymphocyte % 1.3 %
[2020-01-11] MEDS: Heparin VIAL(*) 5000 UNITS/ML VIAL (FIVE THOUSAND) SUBCUT SCH ×3 (06:13→21:12)
[2020-01-11] MEDS: Levothyroxine TAB* 112 MCG TAB PO SCH (06:13)
--- NOTE | 2020-01-11 07:00 | PN ---
Subjective Date of Service: 01/11/20 Interval History: HD 18 on 01/10 74M PMH lung Ca s/p R lobectomy, COPD and chronic hypoxic resp failure on 2-3L NC at baseline, sp AVR, CAD s/p CABG, hypothyroid, with recent outside hospital cardiac arrest and ROSC with resultant HFpEF (?) EF 75%-poor study on prior to representing for hypoxic/hypercarbic resp failure 12/02 to pseudomonas PNA and COPD exacerbation requiring BiPAP and ICU. Transferred to floor on 01/02, stay c/b tenuous resp status. Overnight: No acute overnight events VVSS-stable hypotension and sinus tachycardia Patient seen and examined at bedside. He feels short of breath and has air hunger, more comfortable on BiPAP. He has no CP, no GI or MSK sx Objective Active Medications: Acetylcysteine (Mucomyst Inhalation Marilynn*) 400 mg INH [id number] AWAKE [facility] Stop: 01/12/20 23:59 Last Admin: 01/11/20 05:32 Dose: 400 mg Albuterol/Ipratropium (Duoneb (Albuterol 2.5 Mg/Ipratropium 0.5 Mg)) 1 neb INH [id number] AWAKE [facility] Last Admin: 01/11/20 05:31 Dose: 1 neb Aspirin (Aspirin 81 Mg Chew Tab*) 81 mg PO DAILY [facility] Last Admin: 01/10/20 09:15 Dose: 81 mg Atorvastatin Calcium (Lipitor*) 40 mg PO QPM [facility] Last Admin: 01/10/20 17:56 Dose: 40 mg Bisacodyl (Dulcolax Supp*) 10 mg [place] DAILY PRN PRN Reason: CONSTIPATION Cetirizine HCl (Zyrtec*) 10 mg PO DAILY [facility] Last Admin: 01/10/20 09:15 Dose: 10 mg Furosemide (Lasix Tab*) 40 mg PO DAILY [facility] Last Admin: 01/10/20 09:15 Dose: 40 mg Heparin Sodium (Porcine) (Heparin Vial(*)) 5,000 units SUBCUT Q8HR [facility] Last Admin: 01/11/20 06:13 Dose: 5,000 units Levothyroxine Sodium (Synthroid Tab*) 112 mcg PO 0600 [facility] Last Admin: 01/11/20 06:13 Dose: 112 mcg Magnesium Oxide (Magox 400 Tab*) 400 mg PO BID [facility] Last Admin: 01/10/20 21:11 Dose: 400 mg Metoprolol Tartrate (Lopressor Tab*) 25 mg PO BID [facility] Last Admin: 01/10/20 19:26 Dose: 25 mg Mometasone Furoate/Formoterol Fumar (Dulera 200/5 Mdi*) 2 puff INH BID [facility] Last Admin: 01/10/20 19:02 Dose: 2 puff Polyethylene Glycol/Electrolytes (Miralax (17 Gm Dose Oliver)) 17 gm PO DAILY [facility] Last Admin: 01/10/20 09:14 Dose: 17 gm Prednisone (Deltasone 20 Mg Tab) 40 mg PO DAILY [facility] Senna (Senokot 8.6 Mg Tab*) 1 tab PO BEDTIME [facility] Last Admin: 01/10/20 21:11 Dose: 1 tab Tiotropium [place] (Spiriva Respimat 2.5 Mcg) 2 puff INH DAILY [facility] Last Admin: 01/10/20 11:07 Dose: Not Given Vital Signs - 8 hr 01/11/20 01/11/20 01/11/20 00:00 03:36 05:38 Temperature 97.1 F 97.6 F Pulse Rate 110 114 112 Respiratory 18 22 18 Rate Blood Pressure 97/64 97/54 (mmHg) O2 Sat by Pulse 100 93 94 Oximetry Oxygen Devices in Use Now: Nasal Cannula Exam: Tachypneic man in mild resp distress Rhonchi in L lung, absent R Sinus tachycardia Soft NT ND NABS 1+ pitting edema blt - Nutrition: Malnutrition Diagnosis/Plan Malnutrition Assessment by Registered Dietitian: Malnutrition Assessment Clinical Characteristics Chronic,Severe Malnutrition Assessment: - wt loss from 185# to 145# (21.6%) in past six Criteria months - severe temporal and clavicular wasting Malnutrition Assessment: - regular unrestricted diet Interventions - pureed textures, honey-thick liquids; follow - 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 adequate intake to support hydration and lean body mass without add'l wt loss 2. ideally, gradual 20# repletion of wt and lean body mass 3. maintain serum electrolytes WNL; no s/sx refeeding syndrome 4. regulation of bowel pattern; no c/o constipation (or diarrhea) Result Diagrams: 01/11/20 05:11 01/11/20 05:11 Additional Lab and Data: Laboratory Tests 01/03/20 01/03/20 06:04 06:04 Calcium 9.2 Ionized Calcium 1.15 L Total Bilirubin 1.70 H Microbiology and Other Data: Microbiology 12/28/19 12:08 Aerobic Blood Culture - Final Blood Venous No Growth Day 5 Anaerobic Blood Culture - Final No Growth Day 5 12/28/19 12:10 Aerobic Blood Culture - Final Blood Venous No Growth Day 5 Anaerobic Blood Culture - Final No Growth Day 5 12/28/19 11:50 Gram Stain - Final Sputum Expectorated Sputum Culture - Final Pseudomonas Aeruginosa Normal Margaux 12/26/19 10:30 Nasal Screen MRSA (PCR) - Final Nasal Mrsa Not Detected 12/26/19 10:55 Legionella Urinary Antigen - Final Urine Negative Legionella Antigen Streptococcus pneumoniae Ag Screen - Final Negative S. pneumo Antigen Diagnostic Imaging: Echo 12/26 Conclusions Summary: - Procedure narrative: The study was technically limited due to poor acoustic window availability, heart shifted to the right. - Left ventricle: The cavity size is moderately reduced. Wall thickness is normal. Systolic function is vigorous. The estimated ejection fraction is 70-75%. - Right ventricle: Systolic function is low normal. - Tricuspid valve: There is trace to mild regurgitation. - Pulmonary arteries: Systolic pressure is within the normal range. The peak pressure during systole by Doppler is 30.0 mm Hg. CTA IMPRESSION: 1. No CT of evidence of pulmonary embolism in the remaining left pulmonary arteries. 2. There is a small left-sided pleural effusion with adjacent compressive atelectasis of the left lower lobe. 3. Extensive chronic, degenerative and postsurgical changes. 12/29 No DVT Assess/Plan/Problems-Billing Assessment: 74M PMH lung Ca s/p R lobectomy, COPD and chronic hypoxic resp failure on 2-3L NC at baseline, sp AVR, CAD s/p CABG, hypothyroid, with recent outside hospital cardiac arrest and ROSC with resultant HFpEF (?) EF 75%-poor study on prior to representing for hypoxic/hypercarbic resp failure 12/02 to pseudomonas PNA and COPD exacerbation requiring BiPAP and ICU. Transferred to floor on 01/02, stay c/b tenuous resp status and leukocytosis. Completed course of meropenem. - Patient Problems (1) Acute and chronic respiratory failure with hypercapnia Current Visit: Yes Status: Acute Priority: High Code(s): J96.22 - ACUTE AND CHRONIC RESPIRATORY FAILURE WITH HYPERCAPNIA SNOMED Code(s): 9084704960894 Comment: - Chronic failure likely from COPD and heart failure - This acute episode likely multifactorial-PNA, COPD exacerbation in setting of poor reserve, ? volume overload - Metanebs, Steroids, Lasix - tapering steroids slowly- now on 40 mg daily - continue LAMA, LABA neb tx, appreciate pulm, who feels continuing to discuss palliative and optimizing underlying as much as we can - Meropenem course completed -Continue lasix 40 PO - Continue mucolytic inhalers - ABG showing retention of Co2. - He has chronic respiratory failure secondary to COPD. He has advanced disease and has right pneumonectomy. He will benefit from a non-invasive ventilator at home to reduce work of breathing and improve pulmonary status. - We have tried BiPaP and it was uneffective as the morning ABG on 01/06 showed PCO2 of 79. (2) Air hunger Current Visit: Yes Status: Acute Code(s): R09.89 - OTH SYMPTOMS AND SIGNS INVOLVING THE CIRC AND RESP SYSTEMS SNOMED Code(s): 075484855 Comment: - Add fan - Consider low dose morphine (3) Pneumonia due to Pseudomonas Current Visit: Yes Status: Acute Comment: - Sputum- pseudomonas sensitive to meropenem - Completed course of meropenem. - Increased WBC count-secondary to steroids, now improving; no other signs of infection and patient does not look septic. - NO indication for inhaled abx - steroid PO- 40 mg, taper as able (4) CAD (coronary artery disease) Current Visit: Yes Status: Acute Code(s): I25.10 - ATHSCL HEART DISEASE OF [place] CORONARY ARTERY W/O ANG PCTRS SNOMED Code(s): 80772206 Comment: - On BB, asa, statin - Recent outside arrest, keep K>4, Mag>2 - No RWMA on echo, though poor study with such sig sinus tachycardia (5) Sinus tachycardia Current Visit: Yes Status: Acute Code(s): R00.0 - TACHYCARDIA, UNSPECIFIED SNOMED Code(s): 80700104 Comment: - Suspect reactive, no e/o arrythmia, monitor on tele - Remains on Metoprolol 25 BID, attempted to increase to 50mg, though did not tolerate -R/O PE (6) COPD (chronic obstructive pulmonary disease) Current Visit: Yes Status: Acute Code(s): J44.9 - CHRONIC OBSTRUCTIVE PULMONARY DISEASE, UNSPECIFIED SNOMED Code(s): 41035292 Comment: - On home 2-3L NC - Appreciate pulmonary consultation, on steroids, on metanebs, and mucolytics on 01/06 - flutter valve - tapering steroids (7) Hypothyroid Current Visit: Yes Status: Acute Code(s): E03.9 - HYPOTHYROIDISM, UNSPECIFIED SNOMED Code(s): 09913781 Comment: - Continue levothryoxine (8) Normocytic anemia Current Visit: Yes Status: Acute Code(s): D64.9 - ANEMIA, UNSPECIFIED SNOMED Code(s): 352997308 Comment: - Stable, - Iron and ferritin normal (9) DVT prophylaxis Current Visit: Yes Status: Acute Priority: Low Code(s): Z29.9 - ENCOUNTER FOR PROPHYLACTIC MEASURES, UNSPECIFIED SNOMED Code(s): 239014751 Comment: - SC heparin (10) Full code status Current Visit: Yes Status: Acute Code(s): Z78.9 - OTHER SPECIFIED HEALTH STATUS SNOMED Code(s): 291694604 Comment: - Will continue ongoing discussions Status and Disposition: Inpatient Lines: PIV Tubes: no gerardo Diet: Regular, pureed and nectar thick Attestation Documenting Resident: Julio Byrd Supervising Physician: Guillermina Craig Attending/Supervising Physician Comment: Agree with resident findings, note, exam, assessment and plan. 74M PMH lung Ca s/p R lobectomy, COPD and chronic hypoxic resp failure on 2-3L NC at baseline, sp AVR, CAD s/p CABG, hypothyroid, with recent outside hospital cardiac arrest and ROSC with resultant HFpEF (?) EF 75%-poor study on prior to representing for hypoxic/hypercarbic resp failure 12/02 to pseudomonas PNA and COPD exacerbation requiring BiPAP and ICU. Interim: Today, improvement has platued. Has a very limited reserve and a tenuous status , he has only 1 lung and his other lung has sig COPD exacerbation along with PNA , coupled with his recent arrest he is frail and at high risk for re admission. Trying to optimize him by getting Astral at home, though I think he will face a difficult future course with his advanced resp failure and needs to begin to steer towards palliative care, I will continue discussions and involve Dr. Grace Plan today: -Continue steroid wean -Continue BiPAP as he is CLEARLY retaining, appreciate social -Continue aggressive tx -Had GOC discussion with him on 01/06, still very clear on full code and well educated though we want to continue to discuss enhancing quality of life Otherwise watchful waiting and aggressive maximal pulm care as we are offering. Appreciate pulm and ID Will attempt to update family, may be able to be d/c to home soon Attestation: This service has been performed in part by a resident under the direction of a teaching physician.I, Guillermina Craig, performed the service, or was physically present during the critical, or ford portions of the service, furnished by the resident. I participated in the management of the patient.
[2020-01-11] MEDS ORDERED: Furosemide IV* 10 MG/ML VIAL (40 MG) IV ONE (09:22)
[2020-01-11] MEDS: Mometasone/Formoter 200/5 MDI INH SCH ×2 (09:31→21:39)
[2020-01-11] MEDS: SPIRIVA Respimat* (tiotropium) 2.5 mcg/inh Inhaler INH SCH (09:31)
[2020-01-11] MEDS: Aspirin 81 mg CHEW TAB* 81 MG TAB.CHEW PO SCH (09:41)
[2020-01-11] MEDS: Metoprolol Tartrate TAB* 50 mg PO SCH ×2 (09:41→21:12)
[2020-01-11] MEDS: Magnesium Oxide TAB* 400 MG PO SCH ×2 (09:41→21:12)
[2020-01-11] MEDS: Cetirizine* 10 MG TAB PO SCH (09:42)
[2020-01-11] MEDS: Polyethylene Glycol 3350* 17 GM PACKET PO SCH (10:06)
[2020-01-11] MEDS: Furosemide TAB* 40 MG PO SCH (10:07)
[2020-01-11] MEDS: Atorvastatin* 40 MG TAB PO SCH (17:16)
--- NOTE | 2020-01-11 18:45 | PN ---
Hospitalist Progress Note Date of Service: 01/11/20 [facility] Discussion The primary team, myself and Dr. Byrd met with pt, his and daughter today to discuss his care plan and goals of care. We discussed that he has platued in his improvemnt and he continues to look uncomfortable and have a tenuous resp status. We discuss he has been MAXIMALLY treated with medical therapy with agressive nebs, steroids, lasix, IV meropenem and NIPPV and continued to not improve and that this was a reflection of his poor reserve having only one lung and that his body was likely weakned by his recent cardiac arrest with miraculous ROSC. We discuss that in consultation with pulm today that there is little more medical therapy therapy to add (such as inhaled abx, which I inquired about). Pulm and primary opinion is that this represents terminal end stage hypercarbic and hypoxic resp failure 2/2 to COPD and only having one lung. Esdras tells us he is tired, he expresses that he initially wanted to keep trying but given such a mild to moderate improvement he wants to focus on being comfortable. 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 I discussed the case with Gretel Grace and I made a referral for hospice His family was in full agreeance and want to respect his wishes to at home.
[2020-01-11] MEDS ORDERED: Morphine ORAL CONCENTRATE* 5 MG/0.25 ML ORAL.SYRIN SL PRN (18:46)
--- NOTE | 2020-01-11 19:24 | CONSULT ---
Palliative / Hospice Consult Ordering Provider: Guillermina Craig - PCP-[facility] Referal Reason: Goals of care/senna. PEG & dulcolax/MS - Subjective Code Status: DNR Advance Directives Location: No Advance Directives - History or Present Illness History or Present Illness: 74yo male with end stage COPD and CAD presents to ER with SOB. PMH is significant for COPD on 2 liters at home, h/o lung cancer s/p R pneumonectomy, s /p bovine aortic valve, CAD s/p 3 stent(RCA,LAD,CIRC), s/p CABG, cardiac arrest 6wks ago and hypothyroidism. PSHx ex smoker, no etoh no drugs, lives with but has family nearby is HCP but no document on chart. Studies CXR new LM & LL pneumonia, small pleural effusion & R pneumonectomy, ECHO-EF 70-75%, EKG- nsr, CTA no PE, venous doppler neg, WBC 29.6, H/H 10.1/32, BUN/Cr 27/.71, egfr 108.8, alb 3.4, INR 1.11, BC neg and sputum P. Aeruginosa. Pt admitted to ICU with acute on chronic hypoxic and hypercapnic respiratory failure. All history is from pt, family and medical record. Lab Values: Abnormal Lab Results 01/11/20 01/11/20 05:11 05:11 WBC 29.6 H RBC 3.44 L Hgb 10.1 L Hct 32 L MCV 92 MCH 29 MCHC 32 RDW 17 H Plt Count 261 MPV 9.2 Neut % (Auto) 93.1 Lymph % (Auto) 1.3 [place] % (Auto) 5.4 Eos % (Auto) 0.2 Baso % (Auto) 0.0 Absolute Neuts (auto) 27.6 H Absolute Lymphs (auto) 0.4 L Absolute Monos (auto) 1.6 H Absolute Eos (auto) 0.1 Absolute Basos (auto) 0.0 Absolute Nucleated RBC 0.0 Nucleated RBC % 0.0 Sodium 144 Potassium 4.2 Chloride 98 L Carbon Dioxide 45 H* Anion Gap 1 L BUN 27 H Creatinine 0.71 Est GFR ( Amer) 131.6 Est GFR (Non-Af Amer) 108.8 BUN/Creatinine Ratio 38.0 H Glucose 114 H Calcium 9.5 Laboratory Last Values WBC 29.6 10^3/uL (3.5-10.8) H 01/11/20 05:11 RBC 3.44 10^6 /uL (4.18-5.48) L 01/11/20 05:11 Hgb 10.1 g/dL (14.0-18.0) L 01/11/20 05:11 Hct 32 % (42-52) L 01/11/20 05:11 MCV 92 fL (80-94) 01/11/20 05:11 MCH 29 pg (27-31) 01/11/20 05:11 MCHC 32 g/dL (31-36) 01/11/20 05:11 RDW 17 % (10-15) H 01/11/20 05:11 Plt Count 261 10^3/uL (150-450) 01/11/20 05:11 MPV 9.2 fL (7.4-10.4) 01/11/20 05:11 Neut % (Auto) 93.1 % 01/11/20 05:11 Lymph % (Auto) 1.3 % 01/11/20 05:11 [place] % (Auto) 5.4 % 01/11/20 05:11 Eos % (Auto) 0.2 % 01/11/20 05:11 Baso % (Auto) 0.0 % 01/11/20 05:11 Absolute Neuts (auto) 27.6 10^3/ul (1.5-7.7) H 01/11/20 05:11 Absolute Lymphs (auto) 0.4 10^3/ul (1.0-4.8) L 01/11/20 05:11 Absolute Monos (auto) 1.6 10^3/ul (0-0.8) H 01/11/20 05:11 Absolute Eos (auto) 0.1 10^3/ul (0-0.6) 01/11/20 05:11 Absolute Basos (auto) 0.0 10^3/ul (0-0.2) 01/11/20 05:11 Absolute Nucleated RBC 0.0 10^3/ul 01/11/20 05:11 Nucleated RBC % 0.0 01/11/20 05:11 INR (Anticoag Therapy) 1.11 (0.82-1.09) H 02/26/20 10:20 Patient Temperature Not Reportable 01/10/20 05:35 ABG pH 7.45 (7.35-7.45) 01/10/20 05:35 ABG pH (Temp Correct) Not Reportable 01/10/20 05:35 ABG pCO2 64 mmHg (35-45) H 01/10/20 05:35 ABG pCO2 (Temp Corrct Not Reportable 01/10/20 05:35 ABG pO2 78 mmHg (80-100) L 01/10/20 05:35 ABG pO2 (Temp Correct Not Reportable 01/10/20 05:35 ABG HCO3 38.1 mmol/L (19-31) H 01/10/20 05:35 ABG O2 Saturation 98.2 % (94.0-98.0) H 01/10/20 05:35 ABG Base Excess 17.0 mmol/L (-2.0-2.0) H 01/10/20 05:35 Respiration Rate Not Reportable 01/10/20 05:35 O2 Delivery Device nasal cannula 01/10/20 05:35 Ventilator Type Not Reportable 01/10/20 05:35 Vent Mode Not Reportable 01/10/20 05:35 FiO2 28 01/10/20 05:35 Inspiratory Time Not Reportable 01/10/20 05:35 PEEP Not Reportable 01/10/20 05:35 Pressure Support Not Reportable 01/10/20 05:35 Pressure Control Not Reportable 01/10/20 05:35 EPAP Not Reportable 01/10/20 05:35 IPAP Not Reportable 01/10/20 05:35 BiPAP Not Reportable 01/10/20 05:35 Sodium 144 mmol/L (135-145) 01/11/20 05:11 Potassium 4.2 mmol/L (3.5-5.0) 01/11/20 05:11 Chloride 98 mmol/L (101-111) L 01/11/20 05:11 Carbon Dioxide 45 mmol/L (22-32) H* 01/11/20 05:11 Anion Gap 1 mmol/L (2-11) L 01/11/20 05:11 BUN 27 mg/dL (6-24) H 01/11/20 05:11 Creatinine 0.71 mg/dL (0.67-1.17) 01/11/20 05:11 Est GFR ( Amer) 131.6 (>60) 01/11/20 05:11 Est GFR (Non-Af Amer) 108.8 (>60) 01/11/20 05:11 BUN/Creatinine Ratio 38.0 (8-20) H 01/11/20 05:11 Glucose 114 mg/dL (70-100) H 01/11/20 05:11 POC Glucose (mg/dL) 101 mg/dL (70-100) H 12/27/19 12:13 Lactic Acid 1.7 mmol/L (0.5-2.0) 12/26/19 10:20 Calcium 9.5 mg/dL (8.6-10.3) 01/11/20 05:11 Ionized Calcium 1.15 mmol/L (1.16-1.32) L 01/03/20 06:04 Phosphorus 2.6 mg/dL (2.5-5.0) 01/03/20 06:04 Magnesium 2.4 mg/dL (1.9-2.7) 01/07/20 05:52 Iron 66 ug/dL (50-212) 01/07/20 05:52 Ferritin 202.0 ng/mL (24-336) 01/07/20 05:52 Total Bilirubin 1.60 mg/dL (0.2-1.0) H 01/04/20 06:55 Direct Bilirubin 0.20 mg/dL (0.03-0.18) H 12/27/19 04:37 Indirect Bilirubin 1.1 mg/dL (0.3-1.0) H 12/27/19 04:37 AST 23 U/L (13-39) 01/04/20 06:55 ALT 45 U/L (7-52) 01/04/20 06:55 Alkaline Phosphatase 73 U/L (34-104) 01/04/20 06:55 Troponin I 0.04 ng/mL (<0.03) H* 12/27/19 04:37 B-Natriuretic Peptide 273 pg/mL (<=100) H 12/27/19 04:37 Total Protein 5.5 g/dL (6.4-8.9) L 01/04/20 06:55 Albumin 3.2 g/dL (3.2-5.2) 01/04/20 06:55 Globulin 2.3 g/dL (2-4) 01/04/20 06:55 Albumin/Globulin Ratio 1.4 (1-3) 01/04/20 06:55 TSH 0.36 mcIU/mL (0.34-5.60) 12/28/19 04:13 Free T4 1.04 ng/dL (0.61-1.12) 12/29/19 04:20 Total T3 47 ng/dL (87-178) L 12/29/19 04:20 Urine Color Yellow 12/26/19 10:55 Urine Appearance Clear 12/26/19 10:55 Urine pH 6.0 (5-9) 12/26/19 10:55 Ur Specific [place] 1.009 (1.010-1.030) L 12/26/19 10:55 Urine Protein Negative (Negative) 12/26/19 10:55 Urine Ketones Negative (Negative) 12/26/19 10:55 Urine Blood Negative (Negative) 12/26/19 10:55 Urine Nitrate Negative (Negative) 12/26/19 10:55 Urine Bilirubin Negative (Negative) 12/26/19 10:55 Urine Urobilinogen Negative (Negative) 12/26/19 10:55 Ur Leukocyte Esterase Negative (Negative) 12/26/19 10:55 Urine Glucose Negative (Negative) 12/26/19 10:55 Influenza A (Rapid) Negative (Negative) 12/26/19 10:37 Influenza B (Rapid) Negative (Negative) 12/26/19 10:37 - Objective Active Medications: Acetylcysteine (Mucomyst Inhalation Marilynn*) 400 mg INH RT.[id number] AWAKE [facility] Stop: 01/12/20 23:59 Last Admin: 01/11/20 13:07 Dose: 400 mg Albuterol/Ipratropium (Duoneb (Albuterol 2.5 Mg/Ipratropium 0.5 Mg)) 1 neb INH RT.[id number] AWAKE [facility] Last Admin: 01/11/20 13:07 Dose: 1 neb Aspirin (Aspirin 81 Mg Chew Tab*) 81 mg PO DAILY [facility] Last Admin: 01/11/20 09:41 Dose: 81 mg Atorvastatin Calcium (Lipitor*) 40 mg PO QPM [facility] Last Admin: 01/11/20 17:16 Dose: 40 mg Bisacodyl (Dulcolax Supp*) 10 mg [place] DAILY PRN PRN Reason: CONSTIPATION Cetirizine HCl (Zyrtec*) 10 mg PO DAILY [facility] Last Admin: 01/11/20 09:42 Dose: 10 mg Furosemide (Lasix Tab*) 40 mg PO DAILY [facility] Heparin Sodium (Porcine) (Heparin Vial(*)) 5,000 units SUBCUT Q8HR [facility] Last Admin: 01/11/20 14:13 Dose: 5,000 units Levothyroxine Sodium (Synthroid Tab*) 112 mcg PO 0600 [facility] Last Admin: 01/11/20 06:13 Dose: 112 mcg Magnesium Oxide (Magox 400 Tab*) 400 mg PO BID [facility] Last Admin: 01/11/20 09:41 Dose: 400 mg Metoprolol Tartrate (Lopressor Tab*) 25 mg PO BID [facility] Last Admin: 01/11/20 09:41 Dose: 25 mg Mometasone Furoate/Formoterol Fumar (Dulera 200/5 Mdi*) 2 puff INH BID [facility] Last Admin: 01/11/20 09:31 Dose: 2 puff Morphine Sulfate (Morphine Oral Concentrate*) 5 mg SL Q8H PRN PRN Reason: Shortness of breath Polyethylene Glycol/Electrolytes (Miralax (17 Gm Dose [place])) 17 gm PO DAILY [facility] Last Admin: 01/11/20 10:06 Dose: Not Given Prednisone (Deltasone 20 Mg Tab) 40 mg PO DAILY [facility] Last Admin: 01/11/20 09:42 Dose: 40 mg Senna (Senokot 8.6 Mg Tab*) 1 tab PO BEDTIME [facility] Last Admin: 01/10/20 21:11 Dose: 1 tab Tiotropium [place] (Spiriva Respimat 2.5 Mcg) 2 puff INH DAILY [facility] Last Admin: 01/11/20 09:31 Dose: 2 puff Vital Signs: Vital Signs: Temp Pulse Resp BP Pulse Ox 98.2 F 123 22 103/59 94 01/11/20 16:00 01/11/20 16:00 01/11/20 16:00 01/11/20 16:00 01/11/20 16:00 Patient Weight: Weight 57.7 kg Intake and Output: Intake & Output 01/09/20 01/10/20 01/11/20 01/12/20 06:59 06:59 06:59 06:59 Intake Total 680 840 120 120 Output Total 1050 1100 450 100 Balance -370 -260 -330 20 Intake: Oral 680 840 120 120 Output: Urine 1050 1100 450 100 Other: Estimated Void Medium Small # Bowel Movements 0 1 0 Estimated Stool Amount Small # Voids 1 2 0 ADLs: Meal Record Start: 12/26/19 10: 11 Freq: 09,13,18 Status: Complete Protocol: Created 12/26/19 10:11 System (Rec: 12/26/19 10:11 System ICU-M28) Document 12/26/19 13:00 [id number] (Rec: 12/26/19 13:12 PHS0129 ICU-C15) Document 12/26/19 18:00 VAH3056 (Rec: 12/26/19 18:50 VXN5326 ICU-C15) Document 12/27/19 09:00 ALR0473 (Rec: 12/27/19 13:35 GFJ0959 ICU-C15) Document 12/27/19 13:00 EJH7331 (Rec: 12/27/19 14:19 ACG3682 ICU-L03) Document 12/27/19 18:00 YGI7584 (Rec: 12/27/19 19:07 FTT5331 ICU-L03) Document 12/28/19 09:00 HYR7554 (Rec: 12/28/19 10:01 DGD2079 ICU-C06) Document 12/28/19 13:00 LDJ1933 (Rec: 12/28/19 13:55 RUJ9758 ICU-M28) Document 12/28/19 18:00 LUG5739 (Rec: 12/28/19 18:21 IIX6743 ICU-M28) Document 12/29/19 09:00 JOJ5889 (Rec: 12/29/19 18:11 SNI9224 ICU-C15) Document 12/29/19 13:00 ZAT3264 (Rec: 12/29/19 18:11 XNK3694 ICU-C15) Document 12/29/19 18:00 QFQ2099 (Rec: 12/29/19 21:57 OCC7488 ICU-C15) Document 12/30/19 09:00 CGE2494 (Rec: 12/30/19 09:25 ONB1704 ICU-C16) Document 12/30/19 13:00 FBK3245 (Rec: 12/30/19 15:43 VFO7293 ICU-C06) Document 12/30/19 18:00 MNE3933 (Rec: 12/30/19 18:49 SUH4140 ICU-C06) Document 12/31/19 09:00 UBR5276 (Rec: 12/31/19 15:56 GQZ9005 ICU-C15) Document 12/31/19 13:00 CIL8816 (Rec: 12/31/19 15:56 AMG0506 ICU-C15) Document 12/31/19 18:00 LJR7766 (Rec: 12/31/19 20:48 LXL4887 ICU-C15) Document 01/01/20 09:00 YQO9152 (Rec: 01/01/20 10:14 KRC6313 ICU-C11) Document 01/01/20 13:00 FOC6849 (Rec: 01/01/20 14:20 AJH0772 ICU-C15) Document 01/01/20 18:00 ZRN5294 (Rec: 01/01/20 18:55 WFL7145 ICU-C15) Document 01/02/20 09:00 KAQ0073 (Rec: 01/02/20 09:41 NGU4554 ICU-C15) Document 01/02/20 13:00 PRW2289 (Rec: 01/02/20 13:20 YCZ0483 ICU-M28) ADLs: Meal Record Start: 01/02/20 14: 19 Freq: DAILY@0900,1400,1800 Status: Active Protocol: Created 01/02/20 14:19 FUR9103 (Rec: 01/02/20 14:19 CWL5236 ICU-C15) Document 01/02/20 18:00 SWS4381 (Rec: 01/02/20 18:56 QTU2113 MED-C09) Document 01/03/20 09:00 IQK9858 (Rec: 01/03/20 09:21 MHK9729 MED-C11) Document 01/03/20 13:58 JQM7731 (Rec: 01/03/20 13:58 YUE6609 MED-C09) Document 01/03/20 18:00 FXZ6299 (Rec: 01/03/20 18:40 MVT1811 MED-C09) Document 01/04/20 09:00 ODE5030 (Rec: 01/04/20 09:38 VSI3080 MED-C11) Document 01/04/20 14:19 PAD2741 (Rec: 01/04/20 14:19 FHN9299 TELE-M20) Document 01/04/20 18:00 JCE9641 (Rec: 01/04/20 18:37 PSK0042 MED-C11) Document 01/05/20 09:00 QYD0377 (Rec: 01/05/20 16:35 WXH0271 MED-C11) Document 01/05/20 14:00 LOR1747 (Rec: 01/05/20 16:35 JCN3773 MED-C11) Document 01/05/20 18:00 UZU0365 (Rec: 01/05/20 19:02 PJS3595 MED-C09) Document 01/06/20 09:00 EHI4524 (Rec: 01/06/20 09:29 EJC4649 MED-C09) Document 01/06/20 14:00 TPU8418 (Rec: 01/06/20 14:08 TNF5409 MED-C11) Document 01/06/20 18:00 JMS7781 (Rec: 01/06/20 18:01 YMF6147 MED-M28) Document 01/07/20 09:00 SBA5625 (Rec: 01/07/20 09:07 GFH1755 MED-C11) Document 01/07/20 14:00 HVT6437 (Rec: 01/07/20 14:09 HLD7478 MED-C11) Document 01/08/20 09:00 DQR0325 (Rec: 01/08/20 10:53 TYX8212 MED-C11) Document 01/08/20 14:00 OBY0387 (Rec: 01/08/20 14:18 GRY7732 MED-C14) Document 01/08/20 18:40 XVY9737 (Rec: 01/08/20 18:40 UKB6185 MED-C11) Document 01/09/20 09:00 ATJ3426 (Rec: 01/09/20 10:05 GVC9070 MED-C09) Document 01/09/20 13:17 ABJ9567 (Rec: 01/09/20 13:18 VSJ7592 MED-C11) Document 01/09/20 18:00 DNE8576 (Rec: 01/09/20 19:49 SIW6185 MED-C11) Document 01/10/20 09:00 RTS3673 (Rec: 01/10/20 09:30 JEM1039 MED-C11) Document 01/10/20 14:00 IRH6538 (Rec: 01/10/20 14:43 UGX0877 MED-C11) Document 01/11/20 09:00 OLI4177 (Rec: 01/11/20 10:16 MAF2895 MED-C11) Intake and Output Start: 12/26/19 10: 11 Freq: 06,14,2200 Status: Complete Protocol: Created 12/26/19 10:11 System (Rec: 12/26/19 10:11 System ICU-M28) Document 12/26/19 11:00 YHJ5896 (Rec: 12/26/19 11:13 NID9884 ICU-C15) Document 12/26/19 12:00 RRU9517 (Rec: 12/26/19 12:37 KLS5477 ICU-C15) Document 12/26/19 13:00 UCT3391 (Rec: 12/26/19 13:08 CIJ8480 ICU-C15) Document 12/26/19 13:08 GMG8529 (Rec: 12/26/19 13:08 YRI5524 ICU-C15) Document 12/26/19 14:00 DNP5019 (Rec: 12/26/19 14:35 BFT5483 ICU-C15) Document 12/26/19 15:19 XTZ5230 (Rec: 12/26/19 15:20 VJB4594 ICU-C15) Document 12/26/19 21:36 GCF6779 (Rec: 12/26/19 21:37 FTD1632 ICU-C12) Document 12/27/19 04:44 IBC7667 (Rec: 12/27/19 04:44 VZU9180 ICU-C12) Document 12/27/19 05:58 YKK3229 (Rec: 12/27/19 05:58 WGV7111 ICU-C12) Document 12/27/19 08:00 PHF9612 (Rec: 12/27/19 08:36 AZC8657 ICU-L03) Document 12/27/19 14:00 EFM7831 (Rec: 12/27/19 14:33 NJT1995 ICU-L03) Document 12/27/19 22:00 BOU7362 (Rec: 12/27/19 22:01 UWF3574 ICU-C15) Document 12/27/19 22:20 BFK1408 (Rec: 12/27/19 22:20 LKY5118 ICU-C11) Document 12/28/19 06:00 RBN8633 (Rec: 12/28/19 06:10 DQY1142 ICU-C15) Document 12/28/19 12:00 JDH9180 (Rec: 12/28/19 12:37 WZR4377 ICU-M28) Document 12/28/19 18:21 FET8636 (Rec: 12/28/19 18:21 OFJ3793 ICU-M28) Document 12/28/19 22:00 XPN2939 (Rec: 12/28/19 23:10 CIS9827 ICU-C12) Document 12/29/19 06:00 GMA8071 (Rec: 12/29/19 06:10 INS3182 ICU-C12) Document 12/29/19 14:00 HVR1929 (Rec: 12/29/19 18:13 RFD5925 ICU-C15) Document 12/29/19 22:00 BKV5838 (Rec: 12/29/19 22:15 ALI5553 ICU-C15) Document 12/29/19 23:28 USC3249 (Rec: 12/29/19 23:28 JXR3490 ICU-C15) Document 12/30/19 00:19 EBK8781 (Rec: 12/30/19 00:19 ANS0876 ICU-C15) Document 12/30/19 02:55 KCZ6430 (Rec: 12/30/19 02:55 DZX8754 ICU-C15) Document 12/30/19 06:00 TNI1180 (Rec: 12/30/19 06:37 MQH8086 ICU-C15) Document 12/30/19 14:00 KDU2503 (Rec: 12/30/19 14:22 DML6667 ICU-C16) Document 12/30/19 22:00 NLN4125 (Rec: 12/30/19 23:05 KGI3298 ICU-C15) Document 12/31/19 06:00 ZUR0152 (Rec: 12/31/19 06:10 JSW9640 ICU-C15) Document 12/31/19 09:00 OTO5187 (Rec: 12/31/19 11:17 EXI3621 ICU-C15) Document 12/31/19 15:00 BGU2063 (Rec: 12/31/19 16:17 UVS2392 ICU-C15) Document 12/31/19 22:00 BTW3454 (Rec: 12/31/19 22:50 FMM8487 ICU-C15) Document 01/01/20 05:55 GFD1575 (Rec: 01/01/20 05:56 HQG3012 ICU-C15) Document 01/01/20 22:00 CJM3331 (Rec: 01/01/20 22:06 IAA6177 ICU-C15) Document 01/02/20 02:29 OUB0247 (Rec: 01/02/20 02:29 HPE1999 ICU-C15) Document 01/02/20 06:00 KNO4061 (Rec: 01/02/20 07:47 UYG5637 ICU-C15) Intake and Output Start: 01/02/20 14: 19 Freq: DAILY@0600,1400,2200 Status: Active Protocol: Created 01/02/20 14:19 UWW9058 (Rec: 01/02/20 14:19 XUN5972 ICU-C15) Document 01/02/20 22:00 HUK3528 (Rec: 01/02/20 22:24 ZMP1356 MED-C09) Document 01/03/20 05:31 SOE4751 (Rec: 01/03/20 05:32 JFS1276 MED-C11) Document 01/03/20 05:52 LMM9866 (Rec: 01/03/20 05:52 KOM5721 MED-M28) Document 01/03/20 05:54 BYU3163 (Rec: 01/03/20 05:54 IZU6465 MED-M28) Document 01/03/20 14:00 GVO5862 (Rec: 01/03/20 14:01 KII1868 MED-C09) Document 01/03/20 21:16 UXI5110 (Rec: 01/03/20 21:17 DHX1240 MED-M28) Document 01/03/20 22:00 YIY8827 (Rec: 01/03/20 22:54 DXR4131 MED-C07) Document 01/04/20 05:40 LQM8729 (Rec: 01/04/20 05:40 QAT9259 MED-M28) Document 01/04/20 05:44 QMM0092 (Rec: 01/04/20 05:44 RKP3664 MED-C07) Document 01/04/20 14:00 QXG8412 (Rec: 01/04/20 15:02 ISC3935 MED-C11) Document 01/04/20 14:00 LZV3412 (Rec: 01/04/20 16:01 JQP0145 MED-C13) Document 01/04/20 16:58 SGH3658 (Rec: 01/04/20 16:59 IIC6403 TELE-M20) Document 01/04/20 22:00 KEZ7191 (Rec: 01/04/20 22:31 PKG3921 MED-C11) Document 01/05/20 05:24 EJO3896 (Rec: 01/05/20 05:26 HJQ1949 MED-C11) Document 01/05/20 14:00 WMU5991 (Rec: 01/05/20 16:35 YTJ3734 MED-C11) Document 01/05/20 19:17 DBF6004 (Rec: 01/05/20 19:17 RMJ2223 MED-C09) Document 01/06/20 05:21 SHV4377 (Rec: 01/06/20 05:22 IXF0073 MED-C11) Document 01/06/20 14:00 ACC8192 (Rec: 01/06/20 14:09 BIW6104 MED-C11) Document 01/06/20 18:10 XIM2231 (Rec: 01/06/20 18:11 VXE0194 MED-C11) Document 01/06/20 22:00 WJO3047 (Rec: 01/07/20 00:20 YUW7292 MED-C02) Document 01/07/20 05:21 THS2264 (Rec: 01/07/20 05:21 LLI9700 MED-C02) Document 01/07/20 11:05 WJJ9074 (Rec: 01/07/20 12:08 YUK9367 MED-M01) Document 01/07/20 14:00 FLM0114 (Rec: 01/07/20 14:18 GQY8427 MED-C11) Document 01/08/20 06:00 FFL0193 (Rec: 01/08/20 06:03 OUL4603 MED-C09) Document 01/08/20 14:00 EQX3682 (Rec: 01/08/20 14:18 UNG4481 MED-C14) Document 01/08/20 22:00 YET2224 (Rec: 01/08/20 23:25 SHM0402 MED-C11) Document 01/09/20 04:55 GAZ0626 (Rec: 01/09/20 04:55 VGV5658 MED-C11) Document 01/09/20 13:18 DMC5066 (Rec: 01/09/20 13:18 JYJ5345 MED-C11) Document 01/09/20 14:39 MMZ1251 (Rec: 01/09/20 14:39 ADS1522 MED-C11) Document 01/09/20 22:00 DBM4854 (Rec: 01/09/20 23:33 JVW0098 MED-C09) Document 01/10/20 05:10 BFN5166 (Rec: 01/10/20 05:11 CGC8594 MED-C09) Document 01/10/20 14:00 BJM8525 (Rec: 01/10/20 14:43 WUE0721 MED-C11) Document 01/10/20 21:48 XEE3200 (Rec: 01/10/20 21:49 RGD9743 MED-C14) Document 01/11/20 06:00 KZM9195 (Rec: 01/11/20 06:02 GKE2651 MED-C09) Document 01/11/20 14:00 JMY6174 (Rec: 01/11/20 14:30 NFH0988 MED-C11) Eyes: No Scleral Icterus, PERRLA Ears/Nose/Mouth/Throat: NL Teeth, Lips, Gums, Mucous Membranes Moist Neck: NL Appearance and Movements; NL JVP Cardiovascular: NL Sounds; No Murmurs; No JVD, RRR Abdominal: NL Sounds; No Tenderness; No Distention, No Hepatosplenomegaly Extremities: No Edema Neurological: Alert and Oriented x 3 - Assessment Assessment: 74yo male with end stage COPD and CAD requesting hospice - Plan Consult Plan (MU): Hospice Plan: Long discussion with pt about goals of care. Pt has decided to be on comfort care and pursue home hospice. Left message with daughter in law who called back later, on family conference call and relayed same information about hospice and what to expect. Pt is at peace with his decision to switch to comfort. Hospice information/brochure given. He will need hospital bed and commode. Recommended having same day sign on and he agrees. Also discussed if his condition changes and it is not safe to transport him he may in the hospital. Pt would prefer to at home. Pt has weight loss of 30-40pds in last 1-2 months. He is tired of living like this, last few weeks have been torture now wants to focus on being comfortable. Hospice eligibility is based on diagnosis of end stage COPD and CAD. KPS 30%, PPS 40% - Time On Unit Date of Evaluation: 01/11/20 Hospice Consult Time in: 18:30 Hospice Consult Time Out: 19:30 Hospice Consult Time Total: 60 > 50% of Time Spend In Counseling or Coordinating Care: Yes
[2020-01-11] MEDS: Senna TAB 8.6 mg* TAB PO SCH (21:12)
[2020-01-12] MEDS: Albuterol/Ipratropium NEB.SOL* Albuterol 2.5 MG/Ipratropium 0.5 MG 3 ML INH SCH ×4 (02:42→20:57)
[2020-01-12] MEDS: Acetylcysteine INHALATION SOL* 200 MG/ML NEB.SOLN 10 ML INH SCH ×4 (02:42→20:57)
[2020-01-12] MEDS: Levothyroxine TAB* 112 MCG TAB PO SCH (06:12)
[2020-01-12] MEDS: Heparin VIAL(*) 5000 UNITS/ML VIAL (FIVE THOUSAND) SUBCUT SCH ×3 (06:12→21:18)
--- NOTE | 2020-01-12 07:25 | PN ---
Subjective Date of Service: 01/12/20 Interval History: HD 19 on 01/10 74M PMH lung Ca s/p R lobectomy, COPD and chronic hypoxic resp failure on 2-3L NC at baseline, sp AVR, CAD s/p CABG, hypothyroid, with recent outside hospital cardiac arrest and ROSC with resultant HFpEF (?) EF 75%-poor study on prior to representing for hypoxic/hypercarbic resp failure 12/02 to pseudomonas PNA and COPD exacerbation requiring BiPAP and ICU. Transferred to floor on 01/02, stay c/b tenuous resp status. Now on comfort measures. OVernight: NO acute overnight events VS: stable hypotension and sinus tachycardia Patient seen and examined at bedside. Patient having trouble breathing-oxygen increased to 10 L on face-mask. Patient feeling more comfortable on increased oxygen. Family on bedside and has been updated. Objective Active Medications: Acetylcysteine (Mucomyst Inhalation Marilynn*) 400 mg INH [id number] [facility] Stop: 01/12/20 23:59 Last Admin: 01/12/20 02:42 Dose: Not Given Albuterol/Ipratropium (Duoneb (Albuterol 2.5 Mg/Ipratropium 0.5 Mg)) 1 neb INH [id number] [facility] Last Admin: 01/12/20 02:42 Dose: Not Given Aspirin (Aspirin 81 Mg Chew Tab*) 81 mg PO DAILY [facility] Last Admin: 01/11/20 09:41 Dose: 81 mg Atorvastatin Calcium (Lipitor*) 40 mg PO QPM [facility] Last Admin: 01/11/20 17:16 Dose: 40 mg Bisacodyl (Dulcolax Supp*) 10 mg [place] DAILY PRN PRN Reason: CONSTIPATION Cetirizine HCl (Zyrtec*) 10 mg PO DAILY [facility] Last Admin: 01/11/20 09:42 Dose: 10 mg Furosemide (Lasix Tab*) 40 mg PO DAILY [facility] Heparin Sodium (Porcine) (Heparin Vial(*)) 5,000 units SUBCUT Q8HR [facility] Last Admin: 01/12/20 06:12 Dose: 5,000 units Levothyroxine Sodium (Synthroid Tab*) 112 mcg PO 0600 [facility] Last Admin: 01/12/20 06:12 Dose: 112 mcg Magnesium Oxide (Magox 400 Tab*) 400 mg PO BID [facility] Last Admin: 01/11/20 21:12 Dose: 400 mg Metoprolol Tartrate (Lopressor Tab*) 25 mg PO BID [facility] Last Admin: 01/11/20 21:12 Dose: 25 mg Mometasone Furoate/Formoterol Fumar (Dulera 200/5 Mdi*) 2 puff INH BID [facility] Last Admin: 01/11/20 21:39 Dose: 2 puff Morphine Sulfate (Morphine Oral Concentrate*) 5 mg SL Q8H PRN PRN Reason: Shortness of breath Polyethylene Glycol/Electrolytes (Miralax (17 Gm Dose Oliver)) 17 gm PO DAILY [facility] Last Admin: 01/11/20 10:06 Dose: Not Given Prednisone (Deltasone 20 Mg Tab) 40 mg PO DAILY [facility] Last Admin: 01/11/20 09:42 Dose: 40 mg Senna (Senokot 8.6 Mg Tab*) 1 tab PO BEDTIME [facility] Last Admin: 01/11/20 21:12 Dose: Not Given Tiotropium [place] (Spiriva Respimat 2.5 Mcg) 2 puff INH DAILY [facility] Last Admin: 01/11/20 09:31 Dose: 2 puff Vital Signs - 8 hr 01/11/20 23:58 Temperature 97.8 F Pulse Rate 112 Respiratory 20 Rate Blood Pressure 114/71 (mmHg) O2 Sat by Pulse 90 Oximetry Oxygen Devices in Use Now: Nasal Cannula Exam: General:Tachypneic man in mild resp distress Lungs:Rhonchi in L lung, absent R Heart:Sinus tachycardia Abdomen: Soft NT ND NABS Extremities: 1+ pitting edema blt Neuro: Alert, oriented and co-operative - Nutrition: Malnutrition Diagnosis/Plan Malnutrition Assessment by Registered Dietitian: Malnutrition Assessment Clinical Characteristics Chronic,Severe Malnutrition Assessment: - wt loss from 185# to 145# (21.6%) in past six Criteria months - severe temporal and clavicular wasting Malnutrition Assessment: - regular unrestricted diet Interventions - pureed textures, honey-thick liquids; follow - follow [employer] progress notes for ability to upgrade (or need to downgrade) - Ensure pudding @ B-L-D; extra sauce and LS gravy for meats - follow labs, weights Malnutrition Assessment: Goals 1. adequate intake to support hydration and lean body mass without add'l wt loss 2. ideally, gradual 20# repletion of wt and lean body mass 3. maintain serum electrolytes WNL; no s/sx refeeding syndrome 4. regulation of bowel pattern; no c/o constipation (or diarrhea) Result Diagrams: 01/11/20 05:11 01/11/20 05:11 Additional Lab and Data: Laboratory Tests 01/03/20 01/03/20 06:04 06:04 Calcium 9.2 Ionized Calcium 1.15 L Total Bilirubin 1.70 H Microbiology and Other Data: Microbiology 12/28/19 12:08 Aerobic Blood Culture - Final Blood Venous No Growth Day 5 Anaerobic Blood Culture - Final No Growth Day 5 12/28/19 12:10 Aerobic Blood Culture - Final Blood Venous No Growth Day 5 Anaerobic Blood Culture - Final No Growth Day 5 12/28/19 11:50 Gram Stain - Final Sputum Expectorated Sputum Culture - Final Pseudomonas Aeruginosa Normal Margaux 12/26/19 10:30 Nasal Screen MRSA (PCR) - Final Nasal Mrsa Not Detected 12/26/19 10:55 Legionella Urinary Antigen - Final Urine Negative Legionella Antigen Streptococcus pneumoniae Ag Screen - Final Negative S. pneumo Antigen Diagnostic Imaging: Echo 12/26 Conclusions Summary: - Procedure narrative: The study was technically limited due to poor acoustic window availability, heart shifted to the right. - Left ventricle: The cavity size is moderately reduced. Wall thickness is normal. Systolic function is vigorous. The estimated ejection fraction is 70-75%. - Right ventricle: Systolic function is low normal. - Tricuspid valve: There is trace to mild regurgitation. - Pulmonary arteries: Systolic pressure is within the normal range. The peak pressure during systole by Doppler is 30.0 mm Hg. CTA IMPRESSION: 1. No CT of evidence of pulmonary embolism in the remaining left pulmonary arteries. 2. There is a small left-sided pleural effusion with adjacent compressive atelectasis of the left lower lobe. 3. Extensive chronic, degenerative and postsurgical changes. 12/29 No DVT Assess/Plan/Problems-Billing Assessment: 74M PMH lung Ca s/p R lobectomy, COPD and chronic hypoxic resp failure on 2-3L NC at baseline, sp AVR, CAD s/p CABG, hypothyroid, with recent outside hospital cardiac arrest and ROSC with resultant HFpEF (?) EF 75%-poor study on prior to representing for hypoxic/hypercarbic resp failure 12/02 to pseudomonas PNA and COPD exacerbation requiring BiPAP and ICU. Transferred to floor on 01/02, stay c/b tenuous resp status and leukocytosis. Completed course of meropenem. Now on comfort measures. - Patient Problems (1) Acute and chronic respiratory failure with hypercapnia Current Visit: Yes Status: Acute Priority: High Code(s): J96.22 - ACUTE AND CHRONIC RESPIRATORY FAILURE WITH HYPERCAPNIA SNOMED Code(s): 1596520951583 Comment: - now on comfort care due to having maximized all medical efforts without improvement - Chronic failure likely from COPD and heart failure - This acute episode likely multifactorial-PNA, COPD exacerbation in setting of poor reserve, ? volume overload - Metanebs, Steroids, Lasix - tapering steroids slowly- now on 40 mg daily - continue LAMA, LABA neb tx, appreciate pulm, who feels continuing to discuss palliative and optimizing underlying as much as we can - Meropenem course completed -Continue lasix 40 PO - Continue mucolytic inhalers - ABG showing retention of Co2. - He has chronic respiratory failure secondary to COPD. He has advanced disease and has right pneumonectomy. He will benefit from a non-invasive ventilator at home to reduce work of breathing and improve pulmonary status. - We have tried BiPaP and it was uneffective as the morning ABG on 01/06 showed PCO2 of 79. -patient has not improved well on maximum medical therapy. -oral morphine and cool fan air for air hunger -metaneb and bipap (2) Pneumonia due to Pseudomonas Current Visit: Yes Status: Acute Comment: - Sputum- pseudomonas sensitive to meropenem - Completed course of meropenem. -slowly taper steroids- change to 30 mg tomorrow -comfort measures only -Inhalation Rx for clearing the secretion (3) CAD (coronary artery disease) Current Visit: Yes Status: Acute Code(s): I25.10 - ATHSCL HEART DISEASE OF [place] CORONARY ARTERY W/O ANG PCTRS SNOMED Code(s): 26089584 Comment: - On BB, asa, statin - Recent outside arrest, keep K>4, Mag>2 - No RWMA on echo, though poor study with such sig sinus tachycardia (4) Sinus tachycardia Current Visit: Yes Status: Acute Code(s): R00.0 - TACHYCARDIA, UNSPECIFIED SNOMED Code(s): 39108334 Comment: - Suspect reactive, no e/o arrythmia, monitor on tele - Remains on Metoprolol 25 BID, attempted to increase to 50mg, though did not tolerate -R/O PE -now on comfort measures (5) COPD (chronic obstructive pulmonary disease) Current Visit: Yes Status: Acute Code(s): J44.9 - CHRONIC OBSTRUCTIVE PULMONARY DISEASE, UNSPECIFIED SNOMED Code(s): 38165857 Comment: - On home 2-3L NC - flutter valve - tapering steroids (6) Hypothyroid Current Visit: Yes Status: Acute Code(s): E03.9 - HYPOTHYROIDISM, UNSPECIFIED SNOMED Code(s): 59826160 Comment: - Continue levothryoxine (7) Normocytic anemia Current Visit: Yes Status: Acute Code(s): D64.9 - ANEMIA, UNSPECIFIED SNOMED Code(s): 437466730 Comment: - Stable, - Iron and ferritin normal (8) DVT prophylaxis Current Visit: Yes Status: Acute Priority: Low Code(s): Z29.9 - ENCOUNTER FOR PROPHYLACTIC MEASURES, UNSPECIFIED SNOMED Code(s): 488648326 Comment: - SC heparin (9) Full code status Current Visit: Yes Status: Acute Code(s): Z78.9 - OTHER SPECIFIED HEALTH STATUS SNOMED Code(s): 321815492 Comment: - Will continue ongoing discussions Status and Disposition: Inpatient Lines: PIV Tubes: no gerardo Diet: can eat per wish of patient Dispo: Home hospice; Attending: Tiff Castro Attestation Documenting Resident: Carson Supervising Physician: Matthew Attestation: This service has been performed in part by a resident under the direction of a teaching physician.[email or web address] , performed the service, or was physically present during the critical, or ford portions of the service, furnished by the resident. I participated in the management of the patient.
[2020-01-12] MEDS: Furosemide TAB* 40 MG PO SCH (08:53)
[2020-01-12] MEDS: Magnesium Oxide TAB* 400 MG PO SCH ×2 (08:53→20:08)
[2020-01-12] MEDS: Aspirin 81 mg CHEW TAB* 81 MG TAB.CHEW PO SCH (08:54)
[2020-01-12] MEDS: Cetirizine* 10 MG TAB PO SCH (08:54)
[2020-01-12] MEDS: Metoprolol Tartrate TAB* 50 mg PO SCH ×2 (08:54→20:07)
[2020-01-12] MEDS: Polyethylene Glycol 3350* 17 GM PACKET PO SCH (09:07)
[2020-01-12] MEDS: SPIRIVA Respimat* (tiotropium) 2.5 mcg/inh Inhaler INH SCH (09:15)
[2020-01-12] MEDS: Mometasone/Formoter 200/5 MDI INH SCH ×2 (09:15→21:02)
[2020-01-12] MEDS: Atorvastatin* 40 MG TAB PO SCH (17:12)
[2020-01-12] MEDS: Morphine ORAL CONCENTRATE* 5 MG/0.25 ML ORAL.SYRIN SL PRN ×2 (17:13→21:18)
[2020-01-12] MEDS: Senna TAB 8.6 mg* TAB PO SCH (20:08)
[2020-01-13] MEDS: Morphine ORAL CONCENTRATE* 5 MG/0.25 ML ORAL.SYRIN SL PRN ×3 (00:23→14:30)
[2020-01-13] MEDS: Albuterol/Ipratropium NEB.SOL* Albuterol 2.5 MG/Ipratropium 0.5 MG 3 ML INH SCH ×4 (02:01→21:01)
[2020-01-13] MEDS: Heparin VIAL(*) 5000 UNITS/ML VIAL (FIVE THOUSAND) SUBCUT SCH ×2 (07:08→13:41)
[2020-01-13] MEDS: Levothyroxine TAB* 112 MCG TAB PO SCH (07:08)
[2020-01-13] MEDS: Mometasone/Formoter 200/5 MDI INH SCH ×2 (08:04→23:24)
[2020-01-13] MEDS: SPIRIVA Respimat* (tiotropium) 2.5 mcg/inh Inhaler INH SCH (08:04)
[2020-01-13] MEDS: Cetirizine* 10 MG TAB PO SCH (08:22)
[2020-01-13] MEDS: Magnesium Oxide TAB* 400 MG PO SCH ×2 (08:22→21:02)
[2020-01-13] MEDS: Furosemide TAB* 40 MG PO SCH (08:23)
[2020-01-13] MEDS: Metoprolol Tartrate TAB* 50 mg PO SCH ×2 (08:23→21:03)
[2020-01-13] MEDS: Aspirin 81 mg CHEW TAB* 81 MG TAB.CHEW PO SCH (08:23)
[2020-01-13] MEDS: Polyethylene Glycol 3350* 17 GM PACKET PO SCH (08:24)
--- NOTE | 2020-01-13 14:09 | PN ---
Subjective Date of Service: 01/13/20 Interval History: I saw Mr. Navarrete this morning when he was sleeping comfortably and then came back this afternoon when he was awake and he was feeling quite short of breath. A neb was being started and he requested morphine. Family History: Unchanged from Admission Social History: Unchanged from Admission Past Medical History: Unchanged from Admission Objective Active Medications: Albuterol/Ipratropium (Duoneb (Albuterol 2.5 Mg/Ipratropium 0.5 Mg)) 1 neb INH [id number] [facility] Last Admin: 01/13/20 13:48 Dose: 1 neb Aspirin (Aspirin 81 Mg Chew Tab*) 81 mg PO DAILY [facility] Last Admin: 01/13/20 08:23 Dose: 81 mg Atorvastatin Calcium (Lipitor*) 40 mg PO QPM [facility] Last Admin: 01/12/20 17:12 Dose: Not Given Bisacodyl (Dulcolax Supp*) 10 mg [place] DAILY PRN PRN Reason: CONSTIPATION Cetirizine HCl (Zyrtec*) 10 mg PO DAILY [facility] Last Admin: 01/13/20 08:22 Dose: 10 mg Furosemide (Lasix Tab*) 40 mg PO DAILY [facility] Last Admin: 01/13/20 08:23 Dose: 40 mg Heparin Sodium (Porcine) (Heparin Vial(*)) 5,000 units SUBCUT Q8HR [facility] Last Admin: 01/13/20 13:41 Dose: 5,000 units Levothyroxine Sodium (Synthroid Tab*) 112 mcg PO 0600 [facility] Last Admin: 01/13/20 07:08 Dose: 112 mcg Magnesium Oxide (Magox 400 Tab*) 400 mg PO BID [facility] Last Admin: 01/13/20 08:22 Dose: 400 mg Metoprolol Tartrate (Lopressor Tab*) 25 mg PO BID [facility] Last Admin: 01/13/20 08:23 Dose: 25 mg Mometasone Furoate/Formoterol Fumar (Dulera 200/5 Mdi*) 2 puff INH BID [facility] Last Admin: 01/13/20 08:04 Dose: 2 puff Morphine Sulfate (Morphine Oral Concentrate*) 5 mg SL Q2H PRN PRN Reason: Shortness of breath Last Admin: 01/13/20 08:22 Dose: 5 mg Polyethylene Glycol/Electrolytes (Miralax (17 Gm Dose Oliver)) 17 gm PO DAILY [facility] Last Admin: 01/13/20 08:24 Dose: Not Given Prednisone (Deltasone 20 Mg Tab) 40 mg PO DAILY [facility] Last Admin: 01/13/20 08:23 Dose: 40 mg Senna (Senokot 8.6 Mg Tab*) 1 tab PO BEDTIME [facility] Last Admin: 01/12/20 20:08 Dose: Not Given Tiotropium [place] (Spiriva Respimat 2.5 Mcg) 2 puff INH DAILY [facility] Last Admin: 01/13/20 08:04 Dose: 2 puff Vital Signs - 8 hr 01/13/20 01/13/20 01/13/20 08:00 08:05 08:22 Respiratory 22 20 22 Rate 01/13/20 01/13/20 11:18 13:50 Respiratory 22 20 Rate Oxygen Devices in Use Now: High Flow Nasal Cannula Appearance: alert, tachypneic, pursed lip breathing Eyes: No Scleral Icterus Respiratory: - - diffuse rhonchi on the left; no breath sounds on the right Cardiovascular: RRR Extremities: No Edema, - - feet are cool Neurological: - - moves all extremities - Nutrition: Malnutrition Diagnosis/Plan Malnutrition Assessment by Registered Dietitian: Malnutrition Assessment Clinical Characteristics Chronic,Severe Malnutrition Assessment: - wt loss from 185# to 145# (21.6%) in past six Criteria months - severe temporal and clavicular wasting Malnutrition Assessment: - regular unrestricted diet Interventions - pureed textures, honey-thick liquids; follow - follow [employer]PER[employer]SEMBLER progress notes for ability to upgrade (or need to downgrade) - Ensure pudding @ B-L-D; extra sauce and LS gravy for meats - follow labs, weights Malnutrition Assessment: Goals 1. adequate intake to support hydration and lean body mass without add'l wt loss 2. ideally, gradual 20# repletion of wt and lean body mass 3. maintain serum electrolytes WNL; no s/sx refeeding syndrome 4. regulation of bowel pattern; no c/o constipation (or diarrhea) Result Diagrams: 01/11/20 05:11 01/11/20 05:11 Additional Lab and Data: Laboratory Tests 01/03/20 01/03/20 06:04 06:04 Calcium 9.2 Ionized Calcium 1.15 L Total Bilirubin 1.70 H Microbiology and Other Data: Microbiology 12/28/19 12:08 Aerobic Blood Culture - Final Blood Venous No Growth Day 5 Anaerobic Blood Culture - Final No Growth Day 5 12/28/19 12:10 Aerobic Blood Culture - Final Blood Venous No Growth Day 5 Anaerobic Blood Culture - Final No Growth Day 5 12/28/19 11:50 Gram Stain - Final Sputum Expectorated Sputum Culture - Final Pseudomonas Aeruginosa Normal Margaux 12/26/19 10:30 Nasal Screen MRSA (PCR) - Final Nasal Mrsa Not Detected 12/26/19 10:55 Legionella Urinary Antigen - Final Urine Negative Legionella Antigen Streptococcus pneumoniae Ag Screen - Final Negative S. pneumo Antigen Diagnostic Imaging: Echo 12/26 Conclusions Summary: - Procedure narrative: The study was technically limited due to poor acoustic window availability, heart shifted to the right. - Left ventricle: The cavity size is moderately reduced. Wall thickness is normal. Systolic function is vigorous. The estimated ejection fraction is 70-75%. - Right ventricle: Systolic function is low normal. - Tricuspid valve: There is trace to mild regurgitation. - Pulmonary arteries: Systolic pressure is within the normal range. The peak pressure during systole by Doppler is 30.0 mm Hg. CTA IMPRESSION: 1. No CT of evidence of pulmonary embolism in the remaining left pulmonary arteries. 2. There is a small left-sided pleural effusion with adjacent compressive atelectasis of the left lower lobe. 3. Extensive chronic, degenerative and postsurgical changes. 12/29 No DVT Assess/Plan/Problems-Billing Assessment: 74M PMH lung Ca s/p R lobectomy, COPD and chronic hypoxic resp failure on 2-3L NC at baseline, sp AVR, CAD s/p CABG, hypothyroid, with recent outside hospital cardiac arrest and ROSC with resultant HFpEF (?) EF 75%-poor study on prior to representing for hypoxic/hypercarbic resp failure 12/02 to pseudomonas PNA and COPD exacerbation requiring BiPAP and ICU. Transferred to floor on 01/02, stay c/b tenuous resp status and leukocytosis. Completed course of meropenem. Now on comfort measures. - Patient Problems (1) Comfort measures only status Current Visit: Yes Status: Acute Code(s): Z51.5 - ENCOUNTER FOR PALLIATIVE CARE SNOMED Code(s): 51197619247313 Comment: continue minimal vitals, support from family de-escalate medications today and will continue only medications that support comfort (2) Acute and chronic respiratory failure with hypercapnia Current Visit: Yes Status: Acute Priority: High Code(s): J96.22 - ACUTE AND CHRONIC RESPIRATORY FAILURE WITH HYPERCAPNIA SNOMED Code(s): 4979780543283 Comment: - now on comfort care due to having maximized all medical efforts without improvement - Chronic failure likely from COPD (in only one lung) and heart failure - This acute episode likely multifactorial-PNA, COPD exacerbation in setting of poor reserve, ? volume overload - Metanebs, Steroids, Lasix - tapering steroids slowly- now on 40 mg daily - Meropenem course completed -Continue lasix 40 PO - Continue mucolytic inhalers - He has chronic respiratory failure secondary to COPD. He has advanced disease and has right pneumonectomy. He will benefit from a non-invasive ventilator at home to reduce work of breathing and improve pulmonary status. - We have tried BiPaP and it was uneffective as the morning ABG on 01/06 showed PCO2 of 79. -patient has not improved well on maximum medical therapy. -oral morphine and cool fan air for air hunger (3) Pneumonia due to Pseudomonas Current Visit: Yes Status: Acute Comment: - Sputum- pseudomonas sensitive to meropenem - Completed course of meropenem. -comfort measures only -Inhalation Rx for clearing the secretion (4) CAD (coronary artery disease) Current Visit: Yes Status: Acute Code(s): I25.10 - ATHSCL HEART DISEASE OF [place] CORONARY ARTERY W/O ANG PCTRS SNOMED Code(s): 86518365 Comment: Continue BB for symptoms; DC asa/statin (5) DVT prophylaxis Current Visit: Yes Status: Acute Priority: Low Code(s): Z29.9 - ENCOUNTER FOR PROPHYLACTIC MEASURES, UNSPECIFIED SNOMED Code(s): 976309222 Comment: DC heparin given comfort care Status and Disposition: Awaiting home hospice sign on (hopefully Tuesday if noninvasive ventilation is approved) He will need a wheelchair to assist in ADLs in the home.
[2020-01-13] MEDS: Senna TAB 8.6 mg* TAB PO SCH (23:24)
[2020-01-14] MEDS: Albuterol/Ipratropium NEB.SOL* Albuterol 2.5 MG/Ipratropium 0.5 MG 3 ML INH SCH ×4 (02:52→19:28)
[2020-01-14] MEDS: Morphine ORAL CONCENTRATE* 5 MG/0.25 ML ORAL.SYRIN SL PRN ×7 (05:24→21:05)
[2020-01-14] MEDS: Levothyroxine TAB* 112 MCG TAB PO SCH (05:24)
[2020-01-14] MEDS: Mometasone/Formoter 200/5 MDI INH SCH ×2 (07:09→19:28)
[2020-01-14] MEDS: SPIRIVA Respimat* (tiotropium) 2.5 mcg/inh Inhaler INH SCH (07:09)
[2020-01-14] MEDS: Metoprolol Tartrate TAB* 50 mg PO SCH ×3 (07:53→19:15)
[2020-01-14] MEDS: Furosemide TAB* 40 MG PO SCH (07:53)
[2020-01-14] MEDS: Magnesium Oxide TAB* 400 MG PO SCH ×2 (07:53→21:05)
[2020-01-14] MEDS: Polyethylene Glycol 3350* 17 GM PACKET PO SCH (07:54)
[2020-01-14] MEDS: Cetirizine* 10 MG TAB PO SCH (07:54)
--- NOTE | 2020-01-14 17:46 | PN ---
Subjective Date of Service: 01/14/20 Interval History: HD 21 on 01/13 74M PMH lung Ca s/p R lobectomy, COPD and chronic hypoxic resp failure on 2-3L NC at baseline, sp AVR, CAD s/p CABG, hypothyroid, with recent outside hospital cardiac arrest and ROSC with resultant HFpEF (?) EF 75%-poor study on prior to representing for hypoxic/hypercarbic resp failure 12/02 to pseudomonas PNA and COPD exacerbation requiring BiPAP and ICU. Transferred to floor on 01/02, stay c/b tenuous resp status. Now on comfort measures. OVernight: NO acute overnight events VS: stable hypotension and sinus tachycardia Patient seen and examined at bedside. Patient has right heel and buttock pain, otherwise feels comfortable. Objective Active Medications: Albuterol/Ipratropium (Duoneb (Albuterol 2.5 Mg/Ipratropium 0.5 Mg)) 1 neb INH [id number] AWAKE [facility] Last Admin: 01/14/20 12:24 Dose: 1 neb Bisacodyl (Dulcolax Supp*) 10 mg MO DAILY PRN PRN Reason: CONSTIPATION Cetirizine HCl (Zyrtec*) 10 mg PO DAILY [facility] Last Admin: 01/14/20 07:54 Dose: 10 mg Furosemide (Lasix Tab*) 40 mg PO DAILY [facility] Last Admin: 01/14/20 07:53 Dose: 40 mg Levothyroxine Sodium (Synthroid Tab*) 112 mcg PO 0600 [facility] Last Admin: 01/14/20 05:24 Dose: 112 mcg Magnesium Oxide (Magox 400 Tab*) 400 mg PO BID [facility] Last Admin: 01/14/20 07:53 Dose: 400 mg Metoprolol Tartrate (Lopressor Tab*) 25 mg PO BID [facility] Last Admin: 01/14/20 07:53 Dose: 25 mg Mometasone Furoate/Formoterol Fumar (Dulera 200/5 Mdi*) 2 puff INH BID [facility] Last Admin: 01/14/20 07:09 Dose: 2 puff Morphine Sulfate (Morphine Oral Concentrate*) 5 mg SL Q2H PRN PRN Reason: Shortness of breath Last Admin: 01/14/20 17:12 Dose: 5 mg Polyethylene Glycol/Electrolytes (Miralax (17 Gm Dose Oliver)) 17 gm PO DAILY [facility] Last Admin: 01/14/20 07:54 Dose: Not Given Prednisone (Deltasone 20 Mg Tab) 40 mg PO DAILY [facility] Last Admin: 01/14/20 07:54 Dose: 40 mg Senna (Senokot 8.6 Mg Tab*) 1 tab PO BEDTIME [facility] Last Admin: 01/13/20 23:24 Dose: Not Given Tiotropium [place] (Spiriva Respimat 2.5 Mcg) 2 puff INH DAILY [facility] Last Admin: 01/14/20 07:09 Dose: 2 puff Vital Signs - 8 hr 01/14/20 01/14/20 01/14/20 10:37 12:19 12:28 Pulse Rate 116 Respiratory 22 18 18 Rate O2 Sat by Pulse 92 Oximetry 01/14/20 01/14/20 13:55 17:12 Pulse Rate Respiratory 20 16 Rate O2 Sat by Pulse Oximetry Oxygen Devices in Use Now: Nasal Cannula Exam: General:Tachypneic man Lungs:Rhonchi in L lung, absent R Heart:Sinus tachycardia Abdomen: Soft NT ND NABS Extremities: 1+ pitting edema blt; redness and tenderness on right heel Neuro: Alert, oriented and co-operative - Nutrition: Malnutrition Diagnosis/Plan Malnutrition Assessment by Registered Dietitian: Malnutrition Assessment Clinical Characteristics Chronic,Severe Malnutrition Assessment: - wt loss from 185# to 145# (21.6%) in past six Criteria months - severe temporal and clavicular wasting Malnutrition Assessment: - regular unrestricted diet Interventions - pureed textures, honey-thick liquids; follow - follow [employer] progress notes for ability to upgrade (or need to downgrade) - Ensure pudding @ B-L-D; extra sauce and LS gravy for meats - follow labs, weights Malnutrition Assessment: Goals 1. adequate intake to support hydration and lean body mass without add'l wt loss 2. ideally, gradual 20# repletion of wt and lean body mass 3. maintain serum electrolytes WNL; no s/sx refeeding syndrome 4. regulation of bowel pattern; no c/o constipation (or diarrhea) Result Diagrams: 01/11/20 05:11 01/11/20 05:11 Additional Lab and Data: Laboratory Tests 01/03/20 01/03/20 06:04 06:04 Calcium 9.2 Ionized Calcium 1.15 L Total Bilirubin 1.70 H Microbiology and Other Data: Microbiology 12/28/19 12:08 Aerobic Blood Culture - Final Blood Venous No Growth Day 5 Anaerobic Blood Culture - Final No Growth Day 5 12/28/19 12:10 Aerobic Blood Culture - Final Blood Venous No Growth Day 5 Anaerobic Blood Culture - Final No Growth Day 5 12/28/19 11:50 Gram Stain - Final Sputum Expectorated Sputum Culture - Final Pseudomonas Aeruginosa Normal Margaux 12/26/19 10:30 Nasal Screen MRSA (PCR) - Final Nasal Mrsa Not Detected 12/26/19 10:55 Legionella Urinary Antigen - Final Urine Negative Legionella Antigen Streptococcus pneumoniae Ag Screen - Final Negative S. pneumo Antigen Diagnostic Imaging: Echo 12/26 Conclusions Summary: - Procedure narrative: The study was technically limited due to poor acoustic window availability, heart shifted to the right. - Left ventricle: The cavity size is moderately reduced. Wall thickness is normal. Systolic function is vigorous. The estimated ejection fraction is 70-75%. - Right ventricle: Systolic function is low normal. - Tricuspid valve: There is trace to mild regurgitation. - Pulmonary arteries: Systolic pressure is within the normal range. The peak pressure during systole by Doppler is 30.0 mm Hg. CTA IMPRESSION: 1. No CT of evidence of pulmonary embolism in the remaining left pulmonary arteries. 2. There is a small left-sided pleural effusion with adjacent compressive atelectasis of the left lower lobe. 3. Extensive chronic, degenerative and postsurgical changes. 12/29 No DVT Assess/Plan/Problems-Billing Assessment: 74M PMH lung Ca s/p R lobectomy, COPD and chronic hypoxic resp failure on 2-3L NC at baseline, sp AVR, CAD s/p CABG, hypothyroid, with recent outside hospital cardiac arrest and ROSC with resultant HFpEF (?) EF 75%-poor study on prior to representing for hypoxic/hypercarbic resp failure 12/02 to pseudomonas PNA and COPD exacerbation requiring BiPAP and ICU. Transferred to floor on 01/02, stay c/b tenuous resp status and leukocytosis. Completed course of meropenem. Now on comfort measures. - Patient Problems (1) Acute and chronic respiratory failure with hypercapnia Current Visit: Yes Status: Acute Priority: High Code(s): J96.22 - ACUTE AND CHRONIC RESPIRATORY FAILURE WITH HYPERCAPNIA SNOMED Code(s): 1705020637990 Comment: - now on comfort care due to having maximized all medical efforts without improvement - Chronic failure likely from COPD (in only one lung) and heart failure - This acute episode likely multifactorial-PNA, COPD exacerbation in setting of poor reserve, ? volume overload - Metanebs, Steroids, Lasix - tapering steroids slowly- now on 40 mg daily - Meropenem course completed -Continue lasix 40 PO - Continue mucolytic inhalers - He has chronic respiratory failure secondary to COPD. He has advanced disease and has right pneumonectomy. He will benefit from a non-invasive ventilator at home to reduce work of breathing and improve pulmonary status. - We have tried BiPaP and it was uneffective as the morning ABG on 01/06 showed PCO2 of 79. -patient has not improved well on maximum medical therapy. -oral morphine and cool fan air for air hunger -waiting home hospice approval (2) Pneumonia due to Pseudomonas Current Visit: Yes Status: Acute Comment: - Sputum- pseudomonas sensitive to meropenem - Completed course of meropenem. -comfort measures only -Inhalation Rx for clearing the secretion (3) CAD (coronary artery disease) Current Visit: Yes Status: Acute Code(s): I25.10 - ATHSCL HEART DISEASE OF [place] CORONARY ARTERY W/O ANG PCTRS SNOMED Code(s): 71565003 Comment: Continue BB for symptoms; DC asa/statin (4) Sinus tachycardia Current Visit: Yes Status: Acute Code(s): R00.0 - TACHYCARDIA, UNSPECIFIED SNOMED Code(s): 05245765 Comment: - Suspect reactive, no e/o arrythmia, monitor on tele - Remains on Metoprolol 25 BID, attempted to increase to 50mg, though did not tolerate -R/O PE -now on comfort measures (5) COPD (chronic obstructive pulmonary disease) Current Visit: Yes Status: Acute Code(s): J44.9 - CHRONIC OBSTRUCTIVE PULMONARY DISEASE, UNSPECIFIED SNOMED Code(s): 37564218 Comment: - On home 2-3L NC - flutter valve - tapering steroids (6) Hypothyroid Current Visit: Yes Status: Acute Code(s): E03.9 - HYPOTHYROIDISM, UNSPECIFIED SNOMED Code(s): 52598319 Comment: - Continue levothryoxine (7) Normocytic anemia Current Visit: Yes Status: Acute Code(s): D64.9 - ANEMIA, UNSPECIFIED SNOMED Code(s): 604557552 Comment: - Stable, - Iron and ferritin normal (8) DVT prophylaxis Current Visit: Yes Status: Acute Priority: Low Code(s): Z29.9 - ENCOUNTER FOR PROPHYLACTIC MEASURES, UNSPECIFIED SNOMED Code(s): 367718251 Comment: DC heparin given comfort care (9) DNR (do not resuscitate) Current Visit: Yes Status: Acute Comment: -comfort care only Status and Disposition: Awaiting home hospice sign on (hopefully Tuesday if noninvasive ventilation is approved) He will need a wheelchair to assist in ADLs in the home. Attending: Tiff Castro Attestation Documenting Resident: Carson Supervising Physician: Matthew Attending/Supervising Physician Comment: Appearing uncomfortable this afternoon, using pursed lip breathing after a 3- hour interval between morphine. RN Uzma to administer morphine. Updated family on barriers to discharge ( supplies for home, namely noninvasive ventilator) Addressed the possibility that he may be declining and nearing end of life. They have more family coming. Attestation: This service has been performed in part by a resident under the direction of a teaching physician.IMatthew, performed the service, or was physically present during the critical, or ford portions of the service, furnished by the resident. I participated in the management of the patient.
[2020-01-14] MEDS: Senna TAB 8.6 mg* TAB PO SCH (21:06)
[2020-01-15] MEDS: Morphine ORAL CONCENTRATE* 5 MG/0.25 ML ORAL.SYRIN SL PRN ×8 (00:30→22:15)
[2020-01-15] MEDS: Albuterol/Ipratropium NEB.SOL* Albuterol 2.5 MG/Ipratropium 0.5 MG 3 ML INH SCH ×3 (01:47→14:57)
[2020-01-15] MEDS: Levothyroxine TAB* 112 MCG TAB PO SCH (05:09)
[2020-01-15 07:35] VITALS: BP 92/44
[2020-01-15] MEDS: Metoprolol Tartrate TAB* 50 mg PO SCH ×2 (07:48→20:23)
[2020-01-15] MEDS: Furosemide TAB* 40 MG PO SCH (07:49)
[2020-01-15] MEDS: Polyethylene Glycol 3350* 17 GM PACKET PO SCH (07:52)
[2020-01-15] MEDS: Cetirizine* 10 MG TAB PO SCH (08:56)
[2020-01-15] MEDS: Magnesium Oxide TAB* 400 MG PO SCH ×2 (08:56→20:23)
[2020-01-15] MEDS: Mometasone/Formoter 200/5 MDI INH SCH ×2 (09:06→19:09)
[2020-01-15] MEDS: SPIRIVA Respimat* (tiotropium) 2.5 mcg/inh Inhaler INH SCH (09:09)
[2020-01-15] MEDS ORDERED: LORazepam TAB(*) 0.5 MG PO PRN (09:58)
[2020-01-15] MEDS ORDERED: Scopolamine 1.5 mg* PATCH TRANSDERM SCH (13:00)
[2020-01-15] MEDS ORDERED: Albuterol/Ipratropium NEB.SOL* Albuterol 2.5 MG/Ipratropium 0.5 MG 3 ML INH PRN (14:55)
--- NOTE | 2020-01-15 15:22 | PN ---
Subjective Date of Service: 01/15/20 Interval History: HD 21 on 01/13 74M PMH lung Ca s/p R lobectomy, COPD and chronic hypoxic resp failure on 2-3L NC at baseline, sp AVR, CAD s/p CABG, hypothyroid, with recent outside hospital cardiac arrest and ROSC with resultant HFpEF (?) EF 75%-poor study on prior to representing for hypoxic/hypercarbic resp failure 12/02 to pseudomonas PNA and COPD exacerbation requiring BiPAP and ICU. Transferred to floor on 01/02, stay c/b tenuous resp status. Now on comfort measures. OVernight: Increased morphine to 7.5 VS: stable hypotension and sinus tachycardia Patient seen and examined at bedside; family at bedside. patient is on oxymask and looks comfortable. Reports that he is having difficulty urinating- no pain, has hesitancy and initiating. No prostate issues in past. Objective Active Medications: Albuterol/Ipratropium (Duoneb (Albuterol 2.5 Mg/Ipratropium 0.5 Mg)) 1 neb INH [id number] AWAKE PRN PRN Reason: SOB/WHEEZING Bisacodyl (Dulcolax Supp*) 10 mg DC DAILY PRN PRN Reason: CONSTIPATION Cetirizine HCl (Zyrtec*) 10 mg PO DAILY [facility] Last Admin: 01/15/20 08:56 Dose: 10 mg Furosemide (Lasix Tab*) 40 mg PO DAILY [facility] Last Admin: 01/15/20 07:49 Dose: 40 mg Levothyroxine Sodium (Synthroid Tab*) 112 mcg PO 0600 [facility] Last Admin: 01/15/20 05:09 Dose: 112 mcg Lorazepam (Ativan Tab(*)) 0.5 mg PO Q6H PRN PRN Reason: ANXIETY Magnesium Oxide (Magox 400 Tab*) 400 mg PO BID [facility] Last Admin: 01/15/20 08:56 Dose: 400 mg Metoprolol Tartrate (Lopressor Tab*) 25 mg PO BID [facility] Last Admin: 01/15/20 07:48 Dose: 25 mg Mometasone Furoate/Formoterol Fumar (Dulera 200/5 Mdi*) 2 puff INH BID [facility] Last Admin: 01/15/20 09:06 Dose: 2 puff Morphine Sulfate (Morphine Oral Concentrate*) 7.5 mg SL Q2H PRN PRN Reason: Shortness of breath Last Admin: 01/15/20 13:17 Dose: 7.5 mg Pharmacy Profile Note (Scopolamine Patch Remove*) 1 note PATCH OFF .AFTER 72 HOURS [facility] Polyethylene Glycol/Electrolytes (Miralax (17 Gm Dose Oliver)) 17 gm PO DAILY [facility] Last Admin: 01/15/20 07:52 Dose: Not Given Prednisone (Deltasone 10 Mg Tab) 30 mg PO DAILY [facility] Last Admin: 01/15/20 08:57 Dose: 30 mg Scopolamine (Transderm-Scop 1.5 Mg Patch*) 1 patch TRANSDERM Q72H [facility] Last Admin: 01/15/20 13:16 Dose: 1 patch Senna (Senokot 8.6 Mg Tab*) 1 tab PO BEDTIME [facility] Last Admin: 01/14/20 21:06 Dose: Not Given Tiotropium [place] (Spiriva Respimat 2.5 Mcg) 2 puff INH DAILY [facility] Last Admin: 01/15/20 09:09 Dose: 2 puff Vital Signs - 8 hr 01/15/20 01/15/20 01/15/20 07:34 07:39 07:46 Pulse Rate 136 Respiratory 26 26 26 Rate Blood Pressure 92/44 (mmHg) 01/15/20 01/15/20 01/15/20 08:00 09:05 09:41 Pulse Rate Respiratory 26 24 24 Rate Blood Pressure (mmHg) 01/15/20 01/15/20 01/15/20 09:46 10:06 13:17 Pulse Rate Respiratory 28 26 14 Rate Blood Pressure (mmHg) Oxygen Devices in Use Now: High Flow Nasal Cannula, OxyMask Exam: General:Tachypneic man Lungs:Rhonchi in L lung, absent R Heart:Sinus tachycardia Abdomen: Soft NT ND NABS Extremities: 1+ pitting edema blt; redness and tenderness on right heel Neuro: Alert, oriented and co-operative - Nutrition: Malnutrition Diagnosis/Plan Malnutrition Assessment by Registered Dietitian: Malnutrition Assessment Clinical Characteristics Chronic,Severe Malnutrition Assessment: - wt loss from 185# to 145# (21.6%) in past six Criteria months - severe temporal and clavicular wasting Malnutrition Assessment: - regular unrestricted diet Interventions - pureed textures, honey-thick liquids; follow - follow [employer] progress notes for ability to upgrade (or need to downgrade) - Ensure pudding @ B-L-D; extra sauce and LS gravy for meats - follow labs, weights Malnutrition Assessment: Goals 1. adequate intake to support hydration and lean body mass without add'l wt loss 2. ideally, gradual 20# repletion of wt and lean body mass 3. maintain serum electrolytes WNL; no s/sx refeeding syndrome 4. regulation of bowel pattern; no c/o constipation (or diarrhea) Result Diagrams: 01/11/20 05:11 01/11/20 05:11 Additional Lab and Data: Laboratory Tests 01/03/20 01/03/20 06:04 06:04 Calcium 9.2 Ionized Calcium 1.15 L Total Bilirubin 1.70 H Microbiology and Other Data: Microbiology 12/28/19 12:08 Aerobic Blood Culture - Final Blood Venous No Growth Day 5 Anaerobic Blood Culture - Final No Growth Day 5 12/28/19 12:10 Aerobic Blood Culture - Final Blood Venous No Growth Day 5 Anaerobic Blood Culture - Final No Growth Day 5 12/28/19 11:50 Gram Stain - Final Sputum Expectorated Sputum Culture - Final Pseudomonas Aeruginosa Normal Margaux 12/26/19 10:30 Nasal Screen MRSA (PCR) - Final Nasal Mrsa Not Detected 12/26/19 10:55 Legionella Urinary Antigen - Final Urine Negative Legionella Antigen Streptococcus pneumoniae Ag Screen - Final Negative S. pneumo Antigen Diagnostic Imaging: Echo 12/26 Conclusions Summary: - Procedure narrative: The study was technically limited due to poor acoustic window availability, heart shifted to the right. - Left ventricle: The cavity size is moderately reduced. Wall thickness is normal. Systolic function is vigorous. The estimated ejection fraction is 70-75%. - Right ventricle: Systolic function is low normal. - Tricuspid valve: There is trace to mild regurgitation. - Pulmonary arteries: Systolic pressure is within the normal range. The peak pressure during systole by Doppler is 30.0 mm Hg. CTA IMPRESSION: 1. No CT of evidence of pulmonary embolism in the remaining left pulmonary arteries. 2. There is a small left-sided pleural effusion with adjacent compressive atelectasis of the left lower lobe. 3. Extensive chronic, degenerative and postsurgical changes. 12/29 No DVT Assess/Plan/Problems-Billing Assessment: 74M PMH lung Ca s/p R lobectomy, COPD and chronic hypoxic resp failure on 2-3L NC at baseline, sp AVR, CAD s/p CABG, hypothyroid, with recent outside hospital cardiac arrest and ROSC with resultant HFpEF (?) EF 75%-poor study on prior to representing for hypoxic/hypercarbic resp failure 12/02 to pseudomonas PNA and COPD exacerbation requiring BiPAP and ICU. Transferred to floor on 01/02, stay c/b tenuous resp status and leukocytosis. Completed course of meropenem. Now on comfort measures. - Patient Problems (1) Acute and chronic respiratory failure with hypercapnia Current Visit: Yes Status: Acute Priority: High Code(s): J96.22 - ACUTE AND CHRONIC RESPIRATORY FAILURE WITH HYPERCAPNIA SNOMED Code(s): 5886214603278 Comment: - now on comfort care due to having maximized all medical efforts without improvement - Chronic failure likely from COPD (in only one lung) and heart failure - This acute episode likely multifactorial-PNA, COPD exacerbation in setting of poor reserve, ? volume overload - Metanebs, Steroids, Lasix - tapering steroids slowly- now on 40 mg daily - Meropenem course completed -Continue lasix 40 PO - Continue mucolytic inhalers - He has chronic respiratory failure secondary to COPD. He has advanced disease and has right pneumonectomy. He will benefit from a non-invasive ventilator at home to reduce work of breathing and improve pulmonary status. - We have tried BiPaP and it was uneffective as the morning ABG on 01/06 showed PCO2 of 79. -patient has not improved well on maximum medical therapy. -oral morphine and cool fan air for air hunger -waiting home hospice approval and home needs (2) Pneumonia due to Pseudomonas Current Visit: Yes Status: Acute Comment: - Sputum- pseudomonas sensitive to meropenem - Completed course of meropenem. -comfort measures only -Inhalation Rx for clearing the secretion (3) CAD (coronary artery disease) Current Visit: Yes Status: Acute Code(s): I25.10 - ATHSCL HEART DISEASE OF [place] CORONARY ARTERY W/O ANG PCTRS SNOMED Code(s): 25014012 Comment: Continue BB for symptoms; DC asa/statin (4) Sinus tachycardia Current Visit: Yes Status: Acute Code(s): R00.0 - TACHYCARDIA, UNSPECIFIED SNOMED Code(s): 26745000 Comment: - Remains on Metoprolol 25 BID for symptoms -now on comfort measures (5) COPD (chronic obstructive pulmonary disease) Current Visit: Yes Status: Acute Code(s): J44.9 - CHRONIC OBSTRUCTIVE PULMONARY DISEASE, UNSPECIFIED SNOMED Code(s): 66219792 Comment: - On home 2-3L NC - flutter valve - tapering steroids (6) Hypothyroid Current Visit: Yes Status: Acute Code(s): E03.9 - HYPOTHYROIDISM, UNSPECIFIED SNOMED Code(s): 35336023 Comment: - Continue levothryoxine (7) Urinary retention Current Visit: Yes Status: Acute Code(s): R33.9 - RETENTION OF URINE, UNSPECIFIED SNOMED Code(s): 343215490 Comment: -has obstructive sx -bladder scan showing retention -patient is comfort care; will put him on gerardo (8) Normocytic anemia Current Visit: Yes Status: Acute Code(s): D64.9 - ANEMIA, UNSPECIFIED SNOMED Code(s): 652793259 Comment: - Stable, - Iron and ferritin normal (9) Comfort measures only status Current Visit: Yes Status: Acute Code(s): Z51.5 - ENCOUNTER FOR PALLIATIVE CARE SNOMED Code(s): 15920372903634 Comment: continue minimal vitals, support from family will continue only medications that support comfort (10) DVT prophylaxis Current Visit: Yes Status: Acute Priority: Low Code(s): Z29.9 - ENCOUNTER FOR PROPHYLACTIC MEASURES, UNSPECIFIED SNOMED Code(s): 294905004 Comment: DC heparin given comfort care (11) DNR (do not resuscitate) Current Visit: Yes Status: Acute Comment: -comfort care only Status and Disposition: Awaiting home hospice sign on He will need a wheelchair to assist in ADLs in the home. will also need hospital bed, comode. Attending: Tiff Castro Attestation Documenting Resident: Carson Supervising Physician: Matthew Attending/Supervising Physician Comment: Awaiting arrangements for home hospice enrollment. Attestation: This service has been performed in part by a resident under the direction of a teaching physician.Matthew Hobson, performed the service, or was physically present during the critical, or ford portions of the service, furnished by the resident. I participated in the management of the patient.
[2020-01-15] MEDS: Senna TAB 8.6 mg* TAB PO SCH (20:23)
[2020-01-16] MEDS: Morphine ORAL CONCENTRATE* 5 MG/0.25 ML ORAL.SYRIN SL PRN ×2 (02:15→04:15)
[2020-01-16] MEDS ORDERED: Atropine 1% (ORAL/SL)* 15 ML BTL SL PRN (02:44)
--- NOTE | 2020-01-16 08:34 | DS ---
CC: Dr. Daniel; Dr. Melendez; Dr. Nye* SUMMARY: DATE OF ADMISSION: 12/26/19 DATE OF : 01/16/20 TIME OF : 4:45 a.m. PRIMARY CARE PROVIDER: Dr. Nye from the [facility]. CONSULTING INFECTIOUS DISEASE SPECIALIST: Dr. Daniel. CONSULTING SUPERVISOR CONTACT LENS: Dr. Melendez. MY ATTENDING PHYSICIAN WHILE IN THE HOSPITAL: Lizeth Mcgill MD* (report being dictated by Benita Shwa NP). PRINCIPAL DIAGNOSES: Include acute on chronic respiratory failure due to chronic obstructive pulmonary disease exacerbation secondary to pseudomonas pneumonia. HISTORY OF PRESENTING ILLNESS AND HOSPITAL COURSE: I will refer you to Dr. Pepe' s H and P dictated on 12/26/19 for further details. In short, this was a 74- year-old male patient with a history of lung cancer status post pneumonectomy, status post valve replacement, COPD, CAD, and recent hospitalization with cardiac arrest, who was a direct admit from [facility] in [place] for worsening shortness of breath. He reported shortness of breath getting worse over the past week. He denied cough, fever, or URI symptoms. He had 2 L at baseline and was requiring 4 to 5 L in the past couple of days prior to admission. 911 was called for dyspnea on the day prior. It was found that his oxygen concentrator had not been working. He initially refused to go to the ED after an O2 tank was fixed, but ended up coming because of shortness of breath. He was started on BiPAP, given Zosyn, Solu-Medrol, DuoNeb, and Lasix. His BNP was greater than 100. He ultimately was seen by our retention manager. He was placed on FiO2 of 100%. Approximately 6 weeks prior to this admission, the patient had presented to [facility] in [place] with worsening dyspnea, similar to the current episode. He was transferred to [facility] in [place] per the patient's family's request. He developed sudden respiratory failure and cardiac arrest with ROSC. It was suspected to be the result of an aspiration event. He was in [facility] for 2 weeks and discharged home about 3 weeks ago. The patient again was admitted. He was started on broad- spectrum antibiotics. He was on Vapotherm on the night on 12/27/19. At 4 in the morning, he did have an acute respiratory event. It was felt that he had flash pulmonary edema. He underwent further imaging with CT, CTA of the chest on 12/29/19 and 12/28/19. His respiratory status remained tenuous. He was being weaned down on the Vapotherm on 12/28/19; however, on 12/29/19, he required more support on the Vapotherm. He was found to have multidrug resistant pseudomonas pneumonia on cultures coming back on 12/30/19. He was started on high dose meropenem and he remained on high flow Vapotherm. He was seen in consult by Pulmonology and Dr. Daniel, Infectious Disease. He remained in the ICU until 01/02/20. He was ambulating in the ICU. He was diuresed. He was back on nasal cannula and he was transferred down to the floor. He did well on the first day on the floor, oxygen was continued along with steroids and nebulizers and meropenem was continued. On the night of 01/04, his O2 requirements did increase. He went from 3 to 5 L with significant shortness of breath. Sinus tachycardia was noted. Chest x-ray from 01/03/20 showed left pleural effusion with persistent left lower lobe pneumonia. Labs from 01/04/20 did show significant hypercarbia. He was able to speak in full sentences but with tachypnea, mildly uncomfortable. He was continued again on antibiotics, steroids for the time being. He was given Lasix as there was concern for possible volume overload. His respiratory status continued to be tenuous. Hospital day 13, again he had significant hypercarbia. Meropenem was continued. He had BiPAP at night. He was continued on MetaNeb, steroids, and Lasix for the time being. From the night of 01/07/20, he did not wear his BiPAP overnight. He felt uncomfortable. He said the mask was leaking. His sats dropped into the 80s. He responded to breathing treatment. He was continued on IV steroids after being on p.o. steroids. Diamox was added given the fact he was retaining CO2 and he was given Lasix. Hospital day 15, he was doing a little better, back down to 4 L of nasal cannula. His white count was noted to be increasing, thought secondary to steroids; however, he was continued again on Lasix, steroids, and nebs along with antibiotic therapy. On hospital day 16, he had no acute events overnight. He was on 3 L of oxygen which is his baseline. Steroids were changed back to oral steroids and they were going do to a trial off BiPAP and ABG in the a.m. on hospital 15 to see if BiPAP would be suitable for home. He needed extra Lasix on hospital day 17. The night on 01/14/20 into 01/15/20, he got a 20 mg dose of IV Lasix. Steroids were slowly tapered. His ABG from the day prior showed retention of CO2. He completed his meropenem. It was noted on hospital day 18, he had some sinus tachycardia, he had stable hypotension. He was seen at the bedside. He was feeling short of breath and air hunger. He was more comfortable on BiPAP. Denied chest pain. It was felt that he had advanced COPD, chronic respiratory failure. His disease was advanced and had a right pneumonectomy. It was felt that he would benefit from a noninvasive ventilator at home to help reduce the work of breathing. BiPAP was tried and it was ultimately ineffective as the morning ABG on 01/07/20 showed a pCO2 of 79. Low dose morphine was added for the air hunger. Goals of care had been discussed throughout the hospital stay. It was discussed on 01/07/20. Initially, he was clear. He wanted to be a full code and well educated; however, the patient and the treating physician continued to have discussions about enhancing his quality of life. He was seen later that night on 01/11/20 again. There was a goals of care discussion with the patient and the primary team. It was felt that he was plateauing at his improvement. He continued to look uncomfortable and had a very tenuous respiratory status. He was treated aggressively with nebs, steroids, Lasix, meropenem, and noninvasive positive pressure ventilation and continued to not improve and that was reflection of his poor reserve having only 1 lung and his body was likely weak from the recent cardiac arrest with miraculous ROSC. It was discussed with Pulmonology that there was a little more medical therapy to add such as inhaled antibiotics. It was felt that his condition was terminal with end-stage hypercarbia and hypoxic respiratory failure secondary to COPD and having 1 lung. The patient expressed that he was feeling tired. He initially want to keep trying, but given such a mild- to-moderate improvement, he wanted to focus on being comfortable. He clearly expressed that he wanted to at home. He wanted to liberalize his diet. He wanted to focus on all treatments that bring him comfort. He thought that the BiPAP brings him comfort. He was willing to try low doses of morphine for air hunger. He was encouraged to use the same. He thought nebs help him and he considered letting the Mucomyst fall off. At that point, he signed a DNR/DNI and comfort measures paperwork. He wanted to go home around Tuesday with his mask and enroll in hospice. Hospice saw the patient on 01/11/20. It was felt that he would benefit from hospice and arrangements were made to try to get him home with hospice. He was continued on comfort measures on 01/12/20. Oxygen now was up to 10 L. He was given morphine, Ativan for comfort measures only. He continued to decline in subsequent days. He continued to require increased morphine given the air hunger. He was seen today by the attending on hospital day 21. He looked comfortable. He was on OxyMask. He was not in pain. He was continued on morphine. He was prescribed atropine drops for secretion, and unfortunately, surrounded by family, on 01/16/20 at 4:45, the patient subsequently per his wishes. The family did not want to pursue autopsy. They expressed peace. They were happy with the outcome as the patient 's wishes were met. Again, time of was 4:45. TIME SPENT: Time spent on this discharge was less than 30 minutes, greater than half the time spent [id number] with the patient's family going over postmortem care, the other half time spent implementing the discharge plan. BENITA SHAW NP [id number]/[facility] #: [id number] VASILE
[2020-01-16] MEDS: Mometasone/Formoter 200/5 MDI INH SCH (09:12)
[2020-01-16] MEDS: SPIRIVA Respimat* (tiotropium) 2.5 mcg/inh Inhaler INH SCH (09:13)
[2020-01-18] MEDS ORDERED: Scopolamine PATCH Remove* 1 NOTE MISC PATCH OFF SCH (13:00)
== END 2020-01-16 04:45 | disposition expired | DRG 177 ==
LOC: ICU 10:11 → MED 01-02 17:00
PROVIDERS: ADMIT Surgery Surgical Critical Care; ATTEND Internal Medicine
PROC: 5A09357 Assistance with Respiratory Ventilation, Less than 24 Consecutive Hours, Continuous Positive Airway Pressure (ICD-10-PCS; principal; 2019-12-26)
DX: J15.1 Pneumonia due to Pseudomonas (principal); J96.21 Acute and chronic respiratory failure with hypoxia; J96.22 Acute and chronic respiratory failure with hypercapnia; J44.0 Chronic obstructive pulmonary disease with (acute) lower respiratory infection; J81.1 Chronic pulmonary edema; J44.1 Chronic obstructive pulmonary disease with (acute) exacerbation; J98.11 Atelectasis; Z16.24 Resistance to multiple antibiotics; R00.0 Tachycardia, unspecified; D64.9 Anemia, unspecified; I95.9 Hypotension, unspecified; I50.9 Heart failure, unspecified; Z66 Do not resuscitate; D72.829 Elevated white blood cell count, unspecified; R13.10 Dysphagia, unspecified; Z51.5 Encounter for palliative care; R33.9 Retention of urine, unspecified; E03.9 Hypothyroidism, unspecified; E83.42 Hypomagnesemia; I25.10 Atherosclerotic heart disease of native coronary artery without angina pectoris; Z95.5 Presence of coronary angioplasty implant and graft; Z95.1 Presence of aortocoronary bypass graft; Z85.118 Personal history of other malignant neoplasm of bronchus and lung; Z90.2 Acquired absence of lung [part of]; Z95.3 Presence of xenogenic heart valve; Z79.899 Other long term (current) drug therapy; Z79.890 Hormone replacement therapy; Z79.51 Long term (current) use of inhaled steroids; Z79.52 Long term (current) use of systemic steroids; Z91.011 Allergy to milk products; Z87.891 Personal history of nicotine dependence; Z99.81 Dependence on supplemental oxygen
CPT/HCPCS: 36415; 36600; 71045; 71046; 71250; 71275; 80048; 80053; 80076; 81003; 82330; 82728; 82803; 83540; 83605; 83735; 83880; 84100; 84439; 84443; 84479; 84484; 85025; 85027; 85610; 87040; 87070; 87077; 87186; 87205; 87641; 87899; 93005; 93306; 93970; 94640; 94660; 94667; 94668; A9270-GY; J0456; J0696; J1644; J1940; J2185; J2920; J2930; J3475; J3490; J3535; J7512; Q9967